=== PATIENT | female | born 1980 | race Caucasian/White ===

== ENCOUNTER 2018-08-30 02:58 | Emergency (ER) | payer BC ==
[~2018-08-30] VITALS: Ht 172.7 cm; Wt 169.2 kg
[~2018-08-30 02:58] MED LIST: CLINDAMYCIN HC150 MG PO; KEFLEX500 MG PO; LEVAQUIN500 MG PO; NO MEDS; NORCO 7.5-3251 EACH PO; TYLENOL EXTRA500 MG PO; TYLENOL WITH C1 EACH PO
[2018-08-30] MEDS ORDERED: ONDANSETRON HCL INJ 2 MG/ML VIAL IV STA (03:10)
[2018-08-30] MEDS ORDERED: KETOROLAC TROMETHAMINE 30 MG/ML VIAL IV STA (03:10)
[2018-08-30] MEDS ORDERED: SODIUM CHLORIDE 0.9% 1000ML 1,000 ML IV ONE (03:15)
[2018-08-30 03:16] LABS: BASOPHILS # (AUTO) 0.1 (0.0-0.1); BASOPHILS % 0.3 % (0.0-1.0); EOSINOPHILS # (AUTO) 0.3 (0.0-0.4); EOSINOPHILS % 1.7 % (0.0-6.0); HEMATOCRIT 45.1 % (34.2-44.1); HEMOGLOBIN 14.6 g/dL (12.0-16.0); LYMPHOCYTES # (AUTO) 2.6 (1.0-3.2); MEAN CORPUSCULAR HEMOGLOBIN 28.3 pg (28-32); MEAN CORPUSCULAR HGB CONC 32.4 g/dL (31-35); MEAN CORPUSCULAR VOLUME 87.4 fL (81-99); MONOCYTES # (AUTO) 0.5 (0.2-0.8); MONOCYTES % 3.2 % (4.4-11.3); NEUTROPHILS # (AUTO) 13.6 (2.1-6.9); NEUTROPHILS % 79.4 % (38.7-80.0); PLATELET COUNT 326 x10e3/uL (140-360); RED BLOOD COUNT 5.16 x10e6/uL (3.6-5.1); RED CELL DISTRIBUTION WIDTH 14.1 % (11.7-14.4)
[2018-08-30] MEDS ORDERED: DIATRIZOATE MEGL/DIATRIZOA SOD 30 ML BTL PO ONE (03:16)
[2018-08-30 03:33] LABS: ALANINE AMINOTRANSFERASE 42 IU/L (0-55); ALBUMIN 3.8 g/dL (3.5-5.0); ALBUMIN/GLOBULIN RATIO 0.9 (0.8-2.0); ALKALINE PHOSPHATASE 100 IU/L (40-150); AMYLASE 62 U/L (25-125); ANION GAP 15.9 mmol/L (8-16); BLOOD UREA NITROGEN 14 mg/dL (7-26); BUN/CREATININE RATIO 15 (6-25); CALCIUM 9.5 mg/dL (8.4-10.2); CARBON DIOXIDE 22 mmol/L (22-29); CHLORIDE 104 mmol/L (98-107); CREATININE, SERUM 0.92 mg/dL (0.57-1.11); EST GLOMERULAR FILTRATION RATE > 60 ML/MIN (60-); GLUCOSE 144 mg/dL (74-118); LIPASE 29 U/L (8-78); POTASSIUM 3.9 mmol/L (3.5-5.1); SODIUM 138 mmol/L (136-145)
[2018-08-30 04:03] LABS: BACTERIA,URINE FEW /HPF; BILIRUBIN,URINE NEGATIVE (NEGATIVE); CLARITY,URINE CLEAR (CLEAR); COLOR,URINE YELLOW (YELLOW); EPITHELIAL CELLS,URINE MODERATE /LPF; KETONES,URINE NEGATIVE (NEGATIVE); LEUKOCYTE ESTERASE ,URINE NEGATIVE (NEGATIVE); MUCUS,URINE FEW (RARE); NITRITE,URINE NEGATIVE (NEGATIVE); PREGNANCY TEST, URINE NEGATIVE (NEGATIVE); PROTEIN,URINE DIPSTICK TRACE (NEGATIVE); RBC,URINE 0-5 /HPF (0-5); URINE UROBILINOGEN 0.2 mg/dL (0.2 - 1); WBC,URINE (MAN) 0-5 /HPF (0-5)
[2018-08-30] MEDS ORDERED: SODIUM CHLORIDE 0.9% 50ML 50 ML ONE (04:11)
[2018-08-30] MEDS ORDERED: IOPAMIDOL 370 MG/ML 200 ML INFUS..BTL INJ ONE (04:11)
--- NOTE | 2018-08-30 05:18 | Diagnostic Imaging Report ---
EXAM: CT Abdomen and Pelvis WITH contrast INDICATION: Abdominal pain COMPARISON: None. TECHNIQUE: Abdomen and pelvis were scanned utilizing a multidetector helical scanner from the lung base to the pubic symphysis after administration of IV contrast. Coronal and sagittal reformations were obtained. Routine protocol was performed. Scan was performed when during portal venous phase. IV CONTRAST: 100 mL of Isovue-370 ORAL CONTRAST: Water RADIATION DOSE: Total DLP: 1353.18 mGy*cm Estimated effective dose: (DLP x 0.015 x size factor) mSv COMPLICATIONS: None FINDINGS: LINES and TUBES: None. LOWER THORAX: Unremarkable HEPATOBILIARY: No focal hepatic lesions. No biliary ductal dilation. GALLBLADDER: There are stones in the gallbladder. SPLEEN: No splenomegaly. PANCREAS: No focal masses or ductal dilatation. ADRENALS: No adrenal nodules KIDNEYS/URETERS: Kidneys enhance symmetrically. No hydronephrosis. No cystic or solid mass lesions. No stones. GI TRACT: Segmental of small bowel wall thickening/edema best seen on series 301, image 62 through 34 with evidence of mesenteric fluid/edema Appendix is normal. PELVIC ORGANS/BLADDER: Unremarkable. LYMPH NODES: No lymphadenopathy. VESSELS: Unremarkable. PERITONEUM / RETROPERITONEUM: No free air or fluid. BONES: Unremarkable. SOFT TISSUES: Unremarkable. IMPRESSION: 1. Findings are suspicious for focal enteritis in the appropriate clinical setting. Signed by: Dr. Stanton Mitchell M.D. on 08/30/2018 5:14 AM
[2018-08-30 05:45] VITALS: BP 130/76
== END 2018-08-30 06:03 | disposition home or self-care (01) ==
LOC: ER 02:58
DX: R10.12 Left upper quadrant pain (principal); R11.2 Nausea with vomiting, unspecified; R19.7 Diarrhea, unspecified; K52.9 Noninfective gastroenteritis and colitis, unspecified; R73.9 Hyperglycemia, unspecified; F17.210 Nicotine dependence, cigarettes, uncomplicated
CPT/HCPCS: 36415; 74177; 80053; 81001; 81025; 82150; 83690; 85025; 99284; J1885; J2405; J7030; Q9967

== ENCOUNTER 2019-09-02 07:14 | Emergency (ER) | payer BC ==
[~2019-09-02] VITALS: Ht 172.7 cm; Wt 181.0 kg
--- OUTSIDE RECORDS SUMMARY | 2019-09-02 07:19 | XMS REPORT ---
Author Author [facility] Address Unknown Phone Unavailable Care Team Providers Care Palliative Care Specialist Name Role Phone Liu POWELL Unavailable Unavailable Problems This patient has no known problems. Allergies, Adverse Reactions, Alerts This patient has no known allergies or adverse reactions. Medications This patient has no known medications. Results Test Description Test Time Test Comments Text Results Atomic Results Result Comments CT ABDOMEN/PELVIS W 2018-08-30 05:12:00 [place] [address] Patient Name: SHERRIE ABDULLAHI MR #: [id number] : 1980 Age/Sex: 38/F Req #: [id number] [facility] Physician: Ordered by: CRISTINA POWELL MD Report #: [id number] Location: ER Room/Bed: Procedure: [id number] CT/CT ABDOMEN/PELVIS W Exam Date: 08/30/18 Exam Time: 0415 REPORT STATUS: Signed EXAM: CT Abdomen and Pelvis WITH contrast INDICATION: Abdominal pain COMPARISON: None. TECHNIQUE: Abdomen and pelvis were scanned utilizing a multidetector helical scanner from the lung base to the pubic symphysis after administration of IV contrast. Coronal and sagittal reformations were obtained. Routine protocol was performed. Scan was performed when during portal venous phase. IV CONTRAST: 100 mL of Isovue-370 ORAL CONTRAST: Water RADIATION DOSE: Total DLP: 1353.18 mGy*cm Estimated effective dose: (DLP x 0.015 x size factor) mSv COMPLICATIONS: None FINDINGS: LINES and TUBES: None. LOWER THORAX: Unremarkable HEPATOBILIARY: No focal hepatic lesions. No biliary ductal dilation. GALLBLADDER: There are stones in the gallbladder. SPLEEN: No splenomegaly. PANCREAS: No focal masses or ductal dilatation. ADRENALS: No adrenal nodules KIDNEYS/URETERS: Kidneys enhance symmetrically. No hydronephrosis. No cystic or solid mass lesions. No stones. GI TRACT: Segmental of small bowel wall thickening/edema best seen on series 301, image 62 through 34 with evidence of mesenteric fluid/edema Appendix is normal. PELVIC ORGANS/BLADDER: Unremarkable. LYMPH NODES: No lymphadenopathy. VESSELS: Unremarkable. PERITONEUM / RETROPERITONEUM: No free air or fluid. BONES: Unremarkable. SOFT TISSUES: Unremarkable. IMPRESSION: 1. Findings are suspicious for focal enteritis in the appropriate clinical setting. Signed by: Dr. Stanton Mitchell M.D. on 08/30/2018 5:14 AM Dictated By: STANTON HELMS MD 3 Transcribed By: BOGDAN on 08/30/18513 COPY TO: CRISTINA POWELL MD
== END 2019-09-02 08:13 | disposition home or self-care (01) ==
LOC: FSED 07:14
DX: L02.211 Cutaneous abscess of abdominal wall (principal); R73.9 Hyperglycemia, unspecified; F17.210 Nicotine dependence, cigarettes, uncomplicated
CPT/HCPCS: 80053; 85025; 99283

== ENCOUNTER 2019-09-02 20:39 | Inpatient (IN) | payer BC ==
[~2019-09-02] VITALS: Ht 170.2 cm; Wt 179.7 kg
[2019-09-02] MEDS ORDERED: IBUPROFEN 600 MG TAB PO STA (20:59)
[2019-09-02] MEDS ORDERED: ACETAMINOPHEN 325 MG TAB PO NR (21:00)
[2019-09-02] MEDS ORDERED: SODIUM CHLORIDE FLUSH 10 ML SYR INJ PRN (21:00)
[2019-09-02] MEDS ORDERED: ONDANSETRON HCL INJ 2MG/ML 2ML 2 MG/ML VIAL IV ONE (21:00)
[2019-09-02] MEDS ORDERED: SODIUM CHLORIDE 0.9% 50ML 50 ML ONE (21:08)
[2019-09-02] MEDS ORDERED: IOPAMIDOL 370 MG/ML 200 ML INFUS..BTL INJ ONE (21:09)
[2019-09-02] MEDS: SODIUM CHLORIDE 0.9% 1000ML 1,000 ML IV SCH ×3 (21:10→23:15)
[2019-09-02] MEDS ORDERED: ONDANSETRON HCL INJ 2MG/ML 2ML 2 MG/ML VIAL ONE (21:13)
[2019-09-02] MEDS ORDERED: SODIUM CHLORIDE 0.9% 1000ML 1,000 ML ONE (21:14)
[2019-09-02] MEDS ORDERED: IBUPROFEN 200 MG TAB ONE (21:14)
[2019-09-02] MEDS ORDERED: ACETAMINOPHEN 325 MG TAB ONE (21:14)
[2019-09-02] MEDS ORDERED: VANCOMYCIN 1GM/NS 250 ML 250 ML IV STA (21:16)
[2019-09-02] MEDS ORDERED: CEFTRIAXONE SOD 1 GM/NS 50 ML 50 ML IV STA (21:16)
[2019-09-02] MEDS ORDERED: CEFTRIAXONE SOD 1 GM VIAL ONE (22:04)
[2019-09-02] MEDS ORDERED: VANCOMYCIN 1GM/NS 250 ML 250 ML ONE (22:04)
--- NOTE | 2019-09-02 23:16 | Diagnostic Imaging Report ---
EXAMINATION: Chest PA and lateral views INDICATION: Fever. Pain. ^[id number] ^[id number] COMPARISON: None FINDINGS: TUBES and LINES: None. LUNGS: Lungs are well inflated. Lungs are clear. There is no evidence of pneumonia or pulmonary edema. PLEURA: No pleural effusion or pneumothorax. HEART AND MEDIASTINUM: Cardiac size is mildly enlarged. BONES AND SOFT TISSUES: No acute osseous lesion. Soft tissues are unremarkable. UPPER ABDOMEN: No free air under the diaphragm. IMPRESSION: No acute thoracic abnormality. Signed by: Dr. Anila Richardson M.D. on 09/02/2019 11:12 PM
--- NOTE | 2019-09-02 23:27 | Diagnostic Imaging Report ---
EXAM: CT Abdomen and Pelvis WITH contrast INDICATION: Abdominal pain. Fever. COMPARISON: None. TECHNIQUE: Abdomen and pelvis were scanned utilizing a multidetector helical scanner from the lung base to the pubic symphysis after administration of IV contrast. Coronal and sagittal reformations were obtained. Routine protocol was performed. Scan was performed when during portal venous phase. IV CONTRAST: 100 cc Isovue 370 ORAL CONTRAST: Water RADIATION DOSE: Total DLP: 871.91 mGy*cm Estimated effective dose: (DLP x 0.015 x size factor) mSv COMPLICATIONS: None FINDINGS: Image degradation by beam hardening artifact. LINES and TUBES: None. LOWER THORAX: There is mild bibasilar atelectasis. HEPATOBILIARY: The liver is diffuse hypodense compared to the spleen, consistent with diffuse hepatic diffuse hepatic steatosis. No focal hepatic lesions. No biliary ductal dilation. GALLBLADDER:: Cystectomy clips. SPLEEN: No splenomegaly. PANCREAS: No focal masses or ductal dilatation. ADRENALS: No adrenal nodules. KIDNEYS/URETERS: Kidneys enhance symmetrically. No hydronephrosis. No cystic or solid mass lesions. No stones. GI TRACT: No abnormal distention, wall thickening, or evidence of bowel obstruction. Appendix is normal. PELVIC ORGANS/BLADDER: Tubal ligation clips. LYMPH NODES: No lymphadenopathy. VESSELS: Unremarkable. PERITONEUM / RETROPERITONEUM: No free air or fluid. BONES: There are degenerative changes in the lumbar spine. SOFT TISSUES: Mild thickening of the periumbilical subcutaneous soft tissues as seen on axial image 72 series 2 and sagittal image 83 without fluid collection. IMPRESSION: 1. Mild thickening of the para umbilical subcutaneous soft tissues without fluid collection represents focal inflammatory change/cellulitis. No intra-abdominal pelvic abnormality. Signed by: Dr. Anila Richardson M.D. on 09/02/2019 11:24 PM
--- NOTE | 2019-09-02 23:50 | NUR ---
[facility] NOTIFIED OF TRANSFER. ETA GIVEN WAS APPROX 1.5 HRS.
[2019-09-03] VITALS (11 sets, daily range): BP systolic 109–162; BP diastolic 57–97
[2019-09-03] MEDS ORDERED: ACETAMINOPHEN 1000 MG/100 ML IV PRN
--- NOTE | 2019-09-03 01:30 | NUR ---
UPDATE [facility] STATED EMS 15 MINUTES OUT
--- NOTE | 2019-09-03 02:21 | NUR ---
Patient admitted to room 207 via stretcher. Alert and orient to name, hospital, time, and diagnosis: abdominal wall abscess. Abdomen redness, nontender. Denies pain at this time. Skin warm and dry. Bilateral feet healing abrasions. Lungs CTA. Denies dysuria. Last BM 09/01. Ambulatory with steady gait. Oriented to room. Call noble within reach. Will continue to monitor.
[2019-09-03] MEDS: D5.45%NS/KCL 20MEQ 1,000 ML IV SCH ×3 (03:30→16:33)
[2019-09-03] MEDS ORDERED: CEFTRIAXONE SOD 1 GM/NS 50 ML 50 ML IV SCH ×3 (03:45→10:00)
--- NOTE | 2019-09-03 06:50 | NUR ---
Report given to morning nurse. Patient lying in bed. Denies pain at this time.
[2019-09-03 07:01] LABS: BASOPHILS % 0.2 % (0.0-1.0); EOSINOPHILS # (AUTO) 0.1 (0.0-0.4); EOSINOPHILS % 0.6 % (0.0-6.0); HEMATOCRIT 35.4 % (34.2-44.1); HEMOGLOBIN 11.7 g/dL (12.0-16.0); LYMPHOCYTES # (AUTO) 0.9 (1.0-3.2); LYMPHOCYTES % 8.9 % (18.0-39.1); MEAN CORPUSCULAR HEMOGLOBIN 28.5 pg (28-32); MEAN CORPUSCULAR HGB CONC 33.1 g/dL (31-35); MEAN CORPUSCULAR VOLUME 86.3 fL (81-99); MONOCYTES # (AUTO) 0.5 (0.2-0.8); MONOCYTES % 4.7 % (4.4-11.3); NEUTROPHILS # (AUTO) 8.9 (2.1-6.9); NEUTROPHILS % 85.1 % (38.7-80.0); PLATELET COUNT 180 x10e3/uL (140-360); RED CELL DISTRIBUTION WIDTH 15.1 % (11.7-14.4)
[2019-09-03 07:09] LABS: INR 0.97; PROTHROMBIN TIME 13.4 seconds (11.9-14.5)
[2019-09-03 07:10] LABS: PARTIAL THROMBOPLASTIN TIME 31.5 seconds (23.8-35.5)
[2019-09-03 07:13] LABS: ANION GAP 11.5 mmol/L (8-16); BLOOD UREA NITROGEN 13 mg/dL (7-26); BUN/CREATININE RATIO 16 (6-25); CALCIUM 8.4 mg/dL (8.4-10.2); CARBON DIOXIDE 25 mmol/L (22-29); CHLORIDE 101 mmol/L (98-107); CREATININE, SERUM 0.79 mg/dL (0.57-1.11); EST GLOMERULAR FILTRATION RATE > 60 ML/MIN (60-); GLUCOSE 142 mg/dL (74-118); POTASSIUM 3.5 mmol/L (3.5-5.1); SODIUM 134 mmol/L (136-145)
[2019-09-03] MEDS ORDERED: CEFEPIME 2 GM/NS 0.9% 100 ML 100 ML IV SCH (09:00)
[2019-09-03] MEDS ORDERED: IBUPROFEN 400 MG TAB PO ONE (11:00)
[2019-09-03] MEDS: VANCOMYCIN 1GM/NS 250 ML 250 ML IV SCH ×3 (12:24→23:38)
[2019-09-03] MEDS: ACETAMINOPHEN 325 MG TAB PO PRN ×2 (13:30→21:00)
[2019-09-03] MEDS: CEFEPIME 2 GM/NS 0.9% 100 ML 100 ML IV SCH (16:33)
--- NOTE | 2019-09-03 19:18 | NUR ---
Received bedside report from day nurse. Patient awake and sitting up in bed, no s/s of distress or c/o pain at this time. All safety measures in place. Family at bedside. Will continue to monitor.
--- NOTE | 2019-09-03 23:56 | NUR ---
patients temp 101.2 oral. Ice packs placed under both armpits and groin area. Uncovered patient as she had 3 blankets. Addendum: 09/03/19 at 2357 by Riri Mckay RN Next tylenol due at 0300.
[2019-09-04] VITALS (9 sets, daily range): BP systolic 121–147; BP diastolic 70–90
[2019-09-04] MEDS: CEFEPIME 2 GM/NS 0.9% 100 ML 100 ML IV SCH ×2 (01:17→09:00)
[2019-09-04] MEDS: ACETAMINOPHEN 325 MG TAB PO PRN (03:36)
[2019-09-04] MEDS: D5.45%NS/KCL 20MEQ 1,000 ML IV SCH ×3 (03:36→16:00)
--- NOTE | 2019-09-04 04:09 | NUR ---
Patient has hives on upper extremities. Will place call to Dr. Paulino in am. Patient is not taking any new antibiotics. Patient continues to have a temperature of 101, tylenol given, and ice packs placed.
--- NOTE | 2019-09-04 05:22 | Consultation ---
DATE OF CONSULTATION: 09/03/2019 HISTORY OF PRESENT ILLNESS: is here because she is having pain, redness, and swelling in her abdomen, she had this for a few days. She worsened in Urgent [facility] Center. The patient started to have drainage from her wound. She went to see the doctor because she was in Urgent Care, who gave her Bactrim. She took one Bactrim. The patient had fever and chills, felt really bad, except more of pus coming, so she came back and they sent her here to be admitted. The patient was lying in bed comfortably. PAST MEDICAL HISTORY: Significant for morbidly obese patient. PAST SURGICAL HISTORY: She had history of . ALLERGIES: NKA. SOCIAL HISTORY: There is no smoking, drug abuse, or alcohol abuse. FAMILY HISTORY: Otherwise, noncontributory. REVIEW OF SYSTEMS: HEENT: Negative. PULMONARY: Negative. CARDIAC: Negative. MEDICATIONS: He is currently on vancomycin and cefepime. PHYSICAL EXAMINATION: GENERAL: She is currently alert, oriented. VITAL SIGNS: T-max 100.8, blood pressure of 117/58, and heart rate of 105. HEENT: She is not icteric. NECK: Supple. CHEST: Clear bilateral. HEART: S1, S2. No murmur. ABDOMEN: Soft and obese. She has a small area on the skin, which is about 4 x 4 cm. CAT scan was done, showed a mild thickening of periumbilical area without fluid collection, there is no intraabdominal or pelvic inflammatory impression, abdominal cellulitis and abscess seem to be spontaneously drained, low fever, etiology unclear. I would recommend to recheck CBC with diff. Blood cultures pending. Keep on the choice of antibiotic, however, we will adjust because of her weight and vancomycin 2 g q.12h, cefepime 2 g q.8. We will follow. IMPRESSION: 1. Abdominal cellulitis and abscess draining. 2. Low fever. We will observe . MD SOLOMON Puckett/CARMEN /[id number]
--- NOTE | 2019-09-04 06:14 | NUR ---
Paged Dr. Paulino regarding patient's elevated temperature, heart rate, and hives. Also need to clarify vancomycin dosage. Current order is for 1 g. However, label comments specify 1.75 g, whereas Dr. Paulino's notes specify 2 g. Awaiting return call. Will continue to monitor patient.
[2019-09-04 06:24] LABS: BASOPHILS % 0.2 % (0.0-1.0); EOSINOPHILS # (AUTO) 0.2 (0.0-0.4); EOSINOPHILS % 1.8 % (0.0-6.0); HEMATOCRIT 34.6 % (34.2-44.1); HEMOGLOBIN 10.9 g/dL (12.0-16.0); LYMPHOCYTES # (AUTO) 1.2 (1.0-3.2); LYMPHOCYTES % 11.6 % (18.0-39.1); MEAN CORPUSCULAR HEMOGLOBIN 27.7 pg (28-32); MEAN CORPUSCULAR HGB CONC 31.5 g/dL (31-35); MONOCYTES # (AUTO) 0.5 (0.2-0.8); MONOCYTES % 4.3 % (4.4-11.3); NEUTROPHILS # (AUTO) 8.5 (2.1-6.9); NEUTROPHILS % 81.5 % (38.7-80.0); PLATELET COUNT 167 x10e3/uL (140-360); RED BLOOD COUNT 3.93 x10e6/uL (3.6-5.1)
[2019-09-04 06:42] LABS: ALANINE AMINOTRANSFERASE 24 IU/L (0-55); ALBUMIN 2.5 g/dL (3.5-5.0); ALBUMIN/GLOBULIN RATIO 0.7 (0.8-2.0); ALKALINE PHOSPHATASE 83 IU/L (40-150); ANION GAP 9.7 mmol/L (8-16); BLOOD UREA NITROGEN 8 mg/dL (7-26); BUN/CREATININE RATIO 11 (6-25); CALCIUM 8.8 mg/dL (8.4-10.2); CARBON DIOXIDE 24 mmol/L (22-29); CHLORIDE 103 mmol/L (98-107); CHOL/HDL RATIO 3.8 (3.0-3.6); CHOLESTEROL 156 MD/DL (0-199); CREATININE, SERUM 0.75 mg/dL (0.57-1.11); EST GLOMERULAR FILTRATION RATE > 60 ML/MIN (60-); GLUCOSE 156 mg/dL (74-118); HDL CHOLESTEROL 41 MG/DL (40-60); LDL CHOLESTEROL 96 MG/DL (60-130); POTASSIUM 3.7 mmol/L (3.5-5.1); SODIUM 133 mmol/L (136-145); TRIGLYCERIDES 96 MG/DL (0-149)
--- NOTE | 2019-09-04 07:10 | NUR ---
RCD PT AT BED PT IS ALERT AND ORIENTED PT RESTING ON BED PT C/O ITCHING AND REDNESS ON THE HANDS IV PATENT BED LOW AND LOCKED CALL LIGHT IN REACH
[2019-09-04] MEDS ORDERED: DIPHENHYDRAMINE HCL 25 MG CAP PO ONE (07:30)
--- NOTE | 2019-09-04 08:30 | NUR ---
PAGED AND TALKED DR PAGAN REGARDING THE ALLERGIC REACTION REDNESS AND ITCHING HE SAID HE IS COMING TO SEE THE PT
[2019-09-04] MEDS ORDERED: DIPHENHYDRAMINE HCL 25 MG CAP PO PRN (09:00)
[2019-09-04] MEDS ORDERED: METHYLPREDNISOLONE SOD SUCC 40 MG/ML VIAL 1ML IV ONE ×2 (09:30)
[2019-09-04] MEDS ORDERED: VANCOMYCIN HCL 1.5 GM in SODIUM CHLORIDE 0.9% 250ML 300 ML IV SCH (12:00)
--- NOTE | 2019-09-04 15:31 | History and Physical ---
CHIEF COMPLAINT: Left lower quadrant abdominal abscess with cellulitis and fevers. HISTORY OF PRESENT ILLNESS: This is a 39-year-old female with no significant past medical history, who was admitted from the emergency room with a fever, self-draining abscess in the left lower quadrant. Has some headache. No chest pain. No shortness of breath. No cough. No burning urination. No backache. No leg pain. No leg swelling. No diarrhea. No constipation. No seizures. No focal weakness. ALLERGIES: ALLERGY TO CODEINE. PAST MEDICAL HISTORY: Morbid obesity. PAST SURGICAL HISTORY: History of ventral hernia surgery, , and cholecystectomy. SOCIAL HISTORY: The patient is , lives with the family. Smokes cigarettes half to one pack per day. Alcohol socially. No illicit drug use. MEDICATION: None. FAMILY HISTORY: None. REVIEW OF SYSTEMS: GENERAL: Denies fatigue or weakness. HEENT: No diplopia. No blurry vision. CARDIOPULMONARY: No chest pain. No shortness of breath. No cough. ALIMENTARY SYSTEM: Has no nausea, no vomiting. Has a lower quadrant abdominal pain and abscess. GENITOURINARY SYSTEM: No dysuria. No hematuria. MUSCULOSKELETAL: No joint pain. CENTRAL NERVOUS SYSTEM: No focal weakness. PHYSICAL EXAMINATION: GENERAL: A 39-year-old female, who is alert and oriented x3, in no gross distress. VITAL SIGNS: Temperature 100.5, pulse is 90, respiratory rate is 18, blood pressure 130/80. HEENT: Head is atraumatic and normocephalic. Pupils are bilaterally equal and reactive to light. Extraocular muscles are intact. NECK: Supple. No JVD. No carotid bruit. LUNGS: Clear to auscultation and percussion bilaterally. No added sounds. HEART: S1, S2. Regular rate and rhythm. No S3, S4, or murmur. ABDOMEN: Soft, obese. No guarding. No rigidity. Has left lower quadrant tenderness surrounding redness of self-draining abscess. EXTREMITIES: No edema. Peripheral pluses +1. SPECIAL EDUCATION AIDE: Grossly nonfocal. LABORATORY DATA: White count normal. Chemistry normal. Sugar is mildly elevated. ASSESSMENT: 1. Left lower quadrant abdominal abscess, self-draining with surrounding cellulitis. 2. Morbid obesity. PLAN: Admit patient to medical floor. ID consult, Dr. Paulino, surgical consult with Dr. Vladimir Cummings. Vancomycin 1 g IV q.12. Cefepime 2 g IV q.24 hours. Lab in the morning. Case discussed with the patient. All condition and prognosis discussed with consultants. MD KATARINA Feliz/CARMEN /[id number]
--- NOTE | 2019-09-04 15:49 | NUR ---
WOUNDCARE CONSULT FOR 39 YO FEMALE PATIENT ADMITTED FOR ABSCESS ABDOMINAL WALL PATIENT IS INDEPENDENT AND ON VISCO MATTRESS LABS: WBC-10.39,HGB- 10.9,GLUCOSE- 156, HEM A1C -6.2 NEGATIVE BLOOD CULTURE & PENDING RESULTS OF SWAB CULTURE OF ABDOMEN PATIENT ON CEFEPIME AND VANCOMYCIN SKIN ASSESSMENT : FULL WOUND DESCRIPTIONS LISTED ON WOUND FLOW SHEET PT HAS .5CMX .5CM X .2 CM DRAINING ABSCESS ON ABDOMEN SWAB COLLECTED FOR CULTURE DRESSING PLACED ON AREA PATIENT ALSO HAVE 3 AREAS ON RIGHT FOOT THAT HAS A RAISED RASH APPEARANCE RECOMMENDATIONS: NURSING TO COVER ABDOMEN DRAINING ABSCESS DAILY WITH MAXSORB AG COVER WITH ALLEVYN FOAM DRESSING NURSING TO APPLY DAILY VENELEX OINTMENT TO DRY RAISED AREAS TO RIGHT FOOT COVER WITH ALLEVYN FOAM TO PREVENT PAIN FROM FRICTION RUB NURSING TO RECONSULT WOUND CARE NEEDED FOR FURTHER CONCERNS FOR SKIN PROTECTION OR WOUND CARE Addendum: 09/04/19 at 1607 by Miguel Hernández RN Amended: Links added.
[2019-09-04] MEDS ORDERED: ENOXAPARIN SOD INJ 40 MG/0.4 ML SYR SC SCH (17:00)
--- NOTE | 2019-09-04 18:45 | NUR ---
PT RESTING ON BED BED SIDE REPORT GIVEN TO ONCOMING NURSE
[2019-09-05 04:10] VITALS: BP 113/64
[2019-09-05 05:58] LABS: BASOPHILS % 0.2 % (0.0-1.0); EOSINOPHILS # (AUTO) 0.1 (0.0-0.4); EOSINOPHILS % 0.4 % (0.0-6.0); HEMATOCRIT 40.4 % (34.2-44.1); HEMOGLOBIN 12.4 g/dL (12.0-16.0); LYMPHOCYTES # (AUTO) 1.3 (1.0-3.2); LYMPHOCYTES % 10.7 % (18.0-39.1); MEAN CORPUSCULAR HEMOGLOBIN 27.9 pg (28-32); MEAN CORPUSCULAR HGB CONC 30.7 g/dL (31-35); MONOCYTES # (AUTO) 0.5 (0.2-0.8); MONOCYTES % 4.2 % (4.4-11.3); NEUTROPHILS # (AUTO) 10.3 (2.1-6.9); NEUTROPHILS % 83.4 % (38.7-80.0); PLATELET COUNT 163 x10e3/uL (140-360); RED BLOOD COUNT 4.44 x10e6/uL (3.6-5.1); RED CELL DISTRIBUTION WIDTH 14.7 % (11.7-14.4)
[2019-09-05 06:12] LABS: ANION GAP 16.2 mmol/L (8-16); BLOOD UREA NITROGEN 10 mg/dL (7-26); BUN/CREATININE RATIO 13 (6-25); CALCIUM 9.2 mg/dL (8.4-10.2); CARBON DIOXIDE 18 mmol/L (22-29); CHLORIDE 106 mmol/L (98-107); EST GLOMERULAR FILTRATION RATE > 60 ML/MIN (60-); GLUCOSE 272 mg/dL (74-118); POTASSIUM 4.2 mmol/L (3.5-5.1); SODIUM 136 mmol/L (136-145)
--- NOTE | 2019-09-05 07:05 | NUR ---
RCD PT AT BED PT IS ALERT AND ORIENTED RESTING ON BED NO SIGNS OF ANY DISTRESS NOTED IV PATENT BED LOW AND LOCKED CALL LIGHT IN REACH
[2019-09-05] MEDS ORDERED: PANTOPRAZOLE SOD 40 MG TABEC PO SCH (07:30)
[2019-09-05 07:33] LABS: PLATELET ESTIMATE MODERATELY DECREASED
[2019-09-05 07:34] LABS: PLATELET MORPHOLOGY COMMENT FEW LARGE
[2019-09-05 07:49] VITALS: BP 128/66
[2019-09-05 08:00] VITALS: BP 128/66
--- NOTE | 2019-09-05 08:43 | NUR ---
DC TELEY BY ORDER
[2019-09-05] MEDS ORDERED: BALSAM PERU/CASTOR OIL 60 GM OINT...G. TP SCH (09:00)
[2019-09-05 11:55] VITALS: BP 159/109
--- NOTE | 2019-09-05 12:15 | NUR ---
DR PAGAN CAME TO SEE THE PT AND HE IS OK TO DISCHARGE THE PT NO HOME ANTIBIOTICS
== END 2019-09-05 13:00 | disposition home or self-care (01) | DRG 603 ==
LOC: FSED 20:39 → ERHOLD 23:53 → MED/SURG2 09-03 02:21
PROVIDERS: ADMIT Internal Medicine; ATTEND Internal Medicine
DX: L02.211 Cutaneous abscess of abdominal wall (principal); Z68.44 Body mass index [BMI] 60.0-69.9, adult; E66.01 Morbid (severe) obesity due to excess calories; R21 Rash and other nonspecific skin eruption; L23.9 Allergic contact dermatitis, unspecified cause
CPT/HCPCS: 36415; 71046; 74177; 80048; 80053; 80061; 80076; 81003; 81025; 83036; 83518; 83605; 85025; 85610; 85730; 87040; 87071; 87205; 87400; 93005; 96374; 99284; J0696; J1650; J2405; J2920; J3370; J7030; J7050; Q9967

== ENCOUNTER 2020-01-03 19:21 | Emergency (ER) | payer BC ==
[~2020-01-03] VITALS: Ht 170.2 cm; Wt 171.0 kg
[2020-01-03] MEDS ORDERED: CEFAZOLIN SOD 1 GM VIAL ONE (21:07)
[2020-01-03] MEDS ORDERED: SODIUM CHLORIDE 0.9% 100 ML ONE (21:07)
[2020-01-03] MEDS ORDERED: POTASSIUM CHLORIDE 10MEQ EA PO ONE (21:45)
[2020-01-03] MEDS ORDERED: CEFAZOLIN SOD 1 GM/NS 50ML 50 ML IV SCH (22:00)
[2020-01-03] MEDS ORDERED: POTASSIUM CHLORIDE 20 MEQ TAB CR PO ONE (22:24)
[2020-01-03 22:33] VITALS: BP 143/85
== END 2020-01-03 22:45 | disposition short-term general hospital (02) ==
LOC: FSED 19:21
DX: L03.115 Cellulitis of right lower limb (principal); A46 Erysipelas; R73.9 Hyperglycemia, unspecified; E87.6 Hypokalemia; F17.200 Nicotine dependence, unspecified, uncomplicated; E66.01 Morbid (severe) obesity due to excess calories; Z68.43 Body mass index [BMI] 50.0-59.9, adult; R73.03 Prediabetes
CPT/HCPCS: 80053; 85025; 99284; J0690; J7050

== ENCOUNTER 2020-04-28 18:03 | Emergency (ER) | payer BC ==
[~2020-04-28] VITALS: Ht 170.2 cm; Wt 169.2 kg
--- OUTSIDE RECORDS SUMMARY | 2020-04-28 18:07 | XMS REPORT | Clinical Summary ---
Author Author [facility] [employer] Address Unknown Phone Unavailable Care Team Providers Care Veneer Stock Layer Name Role Phone Provider, Unknown PCP Unavailable Allergies Comments Active Allergy Reactions Severity Noted Date Rifampin Swelling 10/27/2019 Sulfa (Sulfonamide Unknown 10/27/2019 Antibiotics) Reaction Sulfa (Sulfonamide Hives 01/03/2020 Antibiotics) Redness of skin (Facial, RUE, Back) Vancomycin Hives, Medium 10/28/2019 Itching, Other (See Comments) Vancomycin Hives 01/03/2020 Medications End Date Status Medication Sig Dispensed Refills Start Date Active hydroCHLOROthiazide Take 25 mg by 0 (HYDRODIURIL) 25 MG mouth daily. tablet Active metFORMIN (GLUCOPHAGE) Take 500 mg 0 500 mg tablet by mouth 2 (two) times a day with meals. Active gabapentin (NEURONTIN) Take 100 mg 0 100 mg capsule by mouth 2 (two) times a day. Active ergocalciferol (VITAMIN Take 50,000 0 D2) 50,000 unit capsule Units by mouth once a week. Active oxyCODone-acetaminophen Take 1 tablet 0 (PERCOCET) 10-325 mg per by mouth tabletIndications: acute every 8 pain (eight) hours as needed for moderate pain .acute pain. 12/07/2019 ergocalciferol (VITAMIN Take 1 4 capsule 2 D2) 50,000 unit capsule capsule 9 (50,000 Units total) by mouth once a week for 30 days. 12/06/2019 metFORMIN (GLUCOPHAGE) Take 1 tablet 60 tablet 0 1 500 mg tablet (500 mg 9 total) by mouth 2 (two) times a day with meals for 30 days. 11/13/2019 oxyCODone-acetaminophen Take 1 tablet 21 tablet 0 (PERCOCET) 10-325 mg per by mouth 9 tabletIndications: acute every 8 pain (eight) hours as needed for moderate pain for up to 7 days .Acute Pain. Max Daily Amount: 3 tablets 11/20/2019 linezolid (ZYVOX) 600 mg Take 1 tablet 28 tablet 0 tablet (600 mg 9 total) by mouth 2 (two) times a day for 14 days. 12/06/2019 furosemide (LASIX) 20 mg Take 1 tablet 30 tablet 0 tablet (20 mg total) 9 by mouth daily as needed (edema) for up to 30 days. 11/20/2019 linezolid (ZYVOX) 600 mg Take 1 tablet 28 tablet 0 tablet (600 mg 9 total) by mouth 2 (two) times a day for 14 days. 01/06/2020 Discontinued (Stop Taking at Discharge) linezolid (ZYVOX) 600 mg Take 600 mg 0 tablet by mouth 2 (two) times a day. 01/06/2020 Discontinued (Stop Taking at Discharge) levoFLOXacin (LEVAQUIN) Take 750 mg 0 750 MG tablet by mouth daily. 01/13/2020 acetaminophen-codeine Take 1 tablet 21 tablet 0 (TYLENOL WITH CODEINE #3) by mouth 0 300-30 mg per every 8 tabletIndications: acute (eight) hours pain as needed for moderate pain for up to 7 days .acute pain. 01/27/2020 meropenem 1,000 mg in Infuse 1,000 0 01/06/20 2 sodium chloride 0.9 % MBP mg into a 0 100 mL IVPB venous catheter every 6 (six) hours for 21 days. Active Problems Problem Noted Date Morbid obesity 01/04/2020 Type 2 diabetes mellitus 01/04/2020 Cellulitis of right lower extremity 01/03/2020 Type II diabetes mellitus with manifestations 2018 Cellulitis of right lower extremity 10/27/2019 Hypokalemia 10/27/2019 Hyponatremia 10/27/2019 Morbid obesity 10/27/2019 Encounters Care Team Description Date Type Specialty Trina Stewart MD Acute embolism and thrombosis of deep ve ins of left upper extremity (HCC) (Primary Dx) 01/13/2020 Transcribe Access Orders Brittany King MD Cellulitis of right lower extremity (Martina lucy Dx); Morbid obesity (HCC); Type 2 diabetes mellitus with hyperglycemia, without long-term current use of insulin (HCC) 01/03/2020 [facility] dicine - Encounter 01/06/2020 Danisha Rock RN 11/06/2019 Patient Quality Outreach Tim Campos MD Yerramadha, Muralidhar Reddy, MD Cellulitis of right lower extremity (Martina lucy Dx); Hypokalemia; Lymphedema; Hyponatremia; Morbid obesity (HCC); Type II diabetes mellitus with manifestations (HCC) 10/27/2019 [facility] dicine - Encounter 11/06/2019 after 04/28/2019 Social History Date Tobacco Use Types Packs/Day Years Used Current Every Day Smoker Cigarettes Smokeless Tobacco: Never Used Comments: 1 pack per week Drinks/Week oz/Week Comments Alcohol Use rarely Yes Sex Assigned at Date Recorded Female 03/03/2020 4:03 AM CDT Industry Job Start Date Occupation Not on file Not on file Not on file Travel End Travel History Travel Start No recent travel history available. Last Filed Vital Signs Reading Time Taken Comments Vital Sign 135/79 01/06/2020 10:49 AM KENNEL TECHNICIAN Blood Pressure 87 01/06/2020 10:49 AM KENNEL TECHNICIAN Pulse 36.7 C (98.1 F) 01/06/2020 10:49 AM KENNEL TECHNICIAN Temperature 18 01/06/2020 10:49 AM KENNEL TECHNICIAN Respiratory Rate 98% 01/06/2020 10:49 AM KENNEL TECHNICIAN Oxygen Saturation - - Inhaled Oxygen Concentration 172 kg (380 lb) 01/04/2020 12:24 AM KENNEL TECHNICIAN Weight 170.2 cm (5' 7") 01/04/2020 12:24 AM KENNEL TECHNICIAN Height 59.52 01/04/2020 12:24 AM KENNEL TECHNICIAN Body Mass Index Plan of Treatment Health Maintenance Due Date Last Done Comments DIABETIC RETINAL EYE EXAM 1978 DIABETIC FOOT EXAM 1988 URINE MICROALBUMIN 1988 CERVICAL CANCER SCREENING 1999 INFLUENZA VACCINE 06/26/2020 Implants Device Identifier Shelf Expiration Date Model / Serial / L ot Implanted Type Area Manufactur er Mesh Implant Mesh Stomach Implant Mesh Implant Mesh Stomach Implant Screw Screw Arm, Upper Procedures Comments Procedure Name Priority Date/Time Associated Diag nosis POC GLUCOSE Routine 01/06/2020 11:59 AM KENNEL TECHNICIAN ESTIMATED GFR Routine 01/06/2020 8:04 AM KENNEL TECHNICIAN BASIC METABOLIC PANEL Routine 01/06/2020 8:04 AM KENNEL TECHNICIAN POC GLUCOSE Routine 01/06/2020 5:33 AM KENNEL TECHNICIAN POC GLUCOSE Routine 01/05/2020 8:50 PM KENNEL TECHNICIAN POC GLUCOSE Routine 01/05/2020 4:18 PM KENNEL TECHNICIAN POC GLUCOSE Routine 01/05/2020 11:26 AM KENNEL TECHNICIAN VENIPUNC NEED PHYS Routine 01/05/2020 SKILL,DX OR RX 10:47 AM KENNEL TECHNICIAN POC GLUCOSE Routine 01/05/2020 5:39 AM KENNEL TECHNICIAN ESTIMATED GFR Routine 01/05/2020 5:10 AM KENNEL TECHNICIAN COMPREHENSIVE METABOLIC Routine 01/05/2020 PANEL 5:10 AM KENNEL TECHNICIAN HC COMPLETE BLD COUNT Routine 01/05/2020 W/AUTO DIFF 5:10 AM KENNEL TECHNICIAN POC GLUCOSE Routine 01/04/2020 8:10 PM KENNEL TECHNICIAN POC GLUCOSE Routine 01/04/2020 3:17 PM KENNEL TECHNICIAN POC GLUCOSE Routine 01/04/2020 11:17 AM KENNEL TECHNICIAN POC GLUCOSE Routine 01/04/2020 5:20 AM KENNEL TECHNICIAN ESTIMATED GFR Routine 01/04/2020 5:15 AM KENNEL TECHNICIAN COMPREHENSIVE METABOLIC Routine 01/04/2020 PANEL 5:15 AM KENNEL TECHNICIAN HC COMPLETE BLD COUNT Routine 01/04/2020 W/AUTO DIFF 5:15 AM KENNEL TECHNICIAN ESTIMATED GFR Routine 11/06/2019 5:06 AM KENNEL TECHNICIAN HC COMPLETE BLD COUNT Routine 11/06/2019 W/AUTO DIFF 5:06 AM KENNEL TECHNICIAN BASIC METABOLIC PANEL Routine 11/06/2019 5:06 AM KENNEL TECHNICIAN ESTIMATED GFR Routine 11/05/2019 5:00 AM KENNEL TECHNICIAN HC COMPLETE BLD COUNT Routine 11/05/2019 W/AUTO DIFF 5:00 AM KENNEL TECHNICIAN BASIC METABOLIC PANEL Routine 11/05/2019 5:00 AM KENNEL TECHNICIAN POC GLUCOSE Routine 11/04/2019 8:02 PM KENNEL TECHNICIAN MANUAL DIFFERENTIAL Routine 11/04/2019 6:09 AM KENNEL TECHNICIAN ESTIMATED GFR Routine 11/04/2019 6:09 AM KENNEL TECHNICIAN CBC WITH PLATELET AND Routine 11/04/2019 DIFFERENTIAL 6:09 AM KENNEL TECHNICIAN BASIC METABOLIC PANEL Routine 11/04/2019 6:09 AM KENNEL TECHNICIAN MANUAL DIFFERENTIAL Routine 11/03/2019 7:30 AM KENNEL TECHNICIAN ESTIMATED GFR Routine 11/03/2019 7:30 AM KENNEL TECHNICIAN CBC WITH PLATELET AND Routine 11/03/2019 DIFFERENTIAL 7:30 AM KENNEL TECHNICIAN BASIC METABOLIC PANEL Routine 11/03/2019 7:30 AM KENNEL TECHNICIAN POC GLUCOSE Routine 11/02/2019 8:13 PM KENNEL TECHNICIAN ANAEROBIC CULTURE Routine 11/02/2019 1:45 PM KENNEL TECHNICIAN GRAM STAIN Routine 11/02/2019 1:45 PM KENNEL TECHNICIAN AEROBIC CULTURE Routine 11/02/2019 1:45 PM KENNEL TECHNICIAN MANUAL DIFFERENTIAL Routine 11/02/2019 7:45 AM KENNEL TECHNICIAN ESTIMATED GFR Routine 11/02/2019 7:45 AM KENNEL TECHNICIAN CBC WITH PLATELET AND Routine 11/02/2019 DIFFERENTIAL 7:45 AM KENNEL TECHNICIAN BASIC METABOLIC PANEL Routine 11/02/2019 7:45 AM KENNEL TECHNICIAN MANUAL DIFFERENTIAL Routine 11/01/2019 5:42 AM KENNEL TECHNICIAN ESTIMATED GFR Routine 11/01/2019 5:42 AM KENNEL TECHNICIAN COMPREHENSIVE METABOLIC Routine 11/01/2019 PANEL 5:42 AM KENNEL TECHNICIAN CBC WITH PLATELET AND Routine 11/01/2019 DIFFERENTIAL 5:42 AM KENNEL TECHNICIAN MANUAL DIFFERENTIAL Routine 10/31/2019 5:15 AM KENNEL TECHNICIAN ESTIMATED GFR Routine 10/31/2019 5:15 AM KENNEL TECHNICIAN COMPREHENSIVE METABOLIC Routine 10/31/2019 PANEL 5:15 AM KENNEL TECHNICIAN CBC WITH PLATELET AND Routine 10/31/2019 DIFFERENTIAL 5:15 AM KENNEL TECHNICIAN PREALBUMIN LEVEL Routine 10/30/2019 4:57 PM KENNEL TECHNICIAN VITAMIN D 25 HYDROXY Routine 10/30/2019 LEVEL 4:57 PM KENNEL TECHNICIAN ESTIMATED GFR Routine 10/30/2019 5:20 AM KENNEL TECHNICIAN COMPREHENSIVE METABOLIC Routine 10/30/2019 PANEL 5:20 AM KENNEL TECHNICIAN HC COMPLETE BLD COUNT Routine 10/30/2019 W/AUTO DIFF 5:20 AM KENNEL TECHNICIAN HEMOGLOBIN A1C Routine 10/29/2019 5:11 AM KENNEL TECHNICIAN MAGNESIUM LEVEL Routine 10/29/2019 5:11 AM KENNEL TECHNICIAN ESTIMATED GFR Routine 10/29/2019 5:11 AM KENNEL TECHNICIAN COMPREHENSIVE METABOLIC Routine 10/29/2019 PANEL 5:11 AM KENNEL TECHNICIAN HC COMPLETE BLD COUNT Routine 10/29/2019 W/AUTO DIFF 5:11 AM KENNEL TECHNICIAN MRSA SCREEN CULTURE Routine 10/28/2019 5:32 PM KENNEL TECHNICIAN VENIPUNC NEED PHYS Routine 10/28/2019 SKILL,DX OR RX 3:03 PM KENNEL TECHNICIAN MANUAL DIFFERENTIAL Routine 10/28/2019 5:14 AM KENNEL TECHNICIAN ESTIMATED GFR Routine 10/28/2019 5:14 AM KENNEL TECHNICIAN COMPREHENSIVE METABOLIC Routine 10/28/2019 PANEL 5:14 AM KENNEL TECHNICIAN CBC WITH PLATELET AND Routine 10/28/2019 DIFFERENTIAL 5:14 AM KENNEL TECHNICIAN LACTIC ACID LEVEL, SEPSIS Timed 10/27/2019 - NOW AND REPEAT 2X EVERY 6:30 PM KENNEL TECHNICIAN 3 HOURS LACTIC ACID LEVEL, SEPSIS Timed 10/27/2019 - NOW AND REPEAT 2X EVERY 3:15 PM KENNEL TECHNICIAN 3 HOURS XR TIBIA FIBULA 2 VW STAT 10/27/2019 RIGHT 12:22 PM KENNEL TECHNICIAN ESTIMATED GFR STAT 10/27/2019 11:52 AM KENNEL TECHNICIAN HCG QUALITATIVE, SERUM STAT 10/27/2019 SCREEN 11:52 AM KENNEL TECHNICIAN PROTHROMBIN TIME WITH INR STAT 10/27/2019 11:52 AM KENNEL TECHNICIAN PARTIAL THROMBOPLASTIN STAT 10/27/2019 TIME (PTT) 11:52 AM KENNEL TECHNICIAN COMPREHENSIVE METABOLIC STAT 10/27/2019 PANEL 11:52 AM KENNEL TECHNICIAN HC COMPLETE BLD COUNT STAT 10/27/2019 W/AUTO DIFF 11:52 AM KENNEL TECHNICIAN LACTIC ACID LEVEL, SEPSIS STAT 10/27/2019 - NOW AND REPEAT 2X EVERY 11:52 AM KENNEL TECHNICIAN 3 HOURS BLOOD CULTURE, AEROBIC & Routine 10/27/2019 ANAEROBIC 11:51 AM KENNEL TECHNICIAN BLOOD CULTURE, AEROBIC & Routine 10/27/2019 ANAEROBIC 11:45 AM KENNEL TECHNICIAN after 04/28/2019 Results * POC glucose (01/06/2020 11:59 AM KENNEL TECHNICIAN) Only the most recent of 12 results within the time period is included. [facility] POC glucose 120 (H) 65 - 99 mg/dL [place] Comment: ROBBY MENDOZA Instructional Technology Facilitator Name: [facility] Krystyna Device ID: [id number] Specimen Performing Organization Address [facility] one Number [facility] [place] [id number] [place] [address] [place] [address] 58 PATHOLOGY AND [facility] [id number] [place] [address] * Estimated GFR (01/06/2020 8:04 AM KENNEL TECHNICIAN) Only the most recent of 14 results within the time period is included. [facility] Estimated GFR >=90 mL/min/1.73 m2 [place] Comment: ROBBY MENDOZA [facility] Interpretation G1 >=90 Normal or high G2 60-89 Mildly decreased G3a 45-59 Mildly to moderately decreased G3b 30-44 Moderately to severely decreased G4 15-29 Severely decreased G5 <15 Kidney failure The eGFR was calculated using the Chronic Kidney Disease Epidemiology Collaboration (CKD-EPI) equation. Interpretation is based on recommendations of the National Kidney Foundation-Kidney Disease Outcomes Quality Initiative (NKF-KDOQI) published in 2014. Specimen Plasma specimen Performing Organization Address City/[facility] Ph one Number [facility] DEPARTMENT [address] [place] [address] 58 PATHOLOGY AND [facility] [address] * Basic metabolic panel (01/06/2020 8:04 AM KENNEL TECHNICIAN) Only the most recent of 6 results within the time period is included. [facility] Sodium 137 135 - 148 mEq/L [facility] Potassium 3.6 3.5 - 5.0 mEq/L [facility] Chloride 96 (L) 98 - 112 mEq/L [facility] CO2 30 24 - 31 mEq/L [facility] Anion gap 11@ANIO 7 - 15 mEq/L [facility] BUN 9 6 - 20 mg/dL [facility] Creatinine 0.60 0.50 - 0.90 mg/dL [facility] Glucose 174 (H) 65 - 99 mg/dL [facility] Calcium 9.6 8.3 - 10.2 mg/dL [facility] Specimen Plasma specimen Performing Organization Address City/State/Zipcode Ph [place] [address] [address] [place] [address] PATHOLOGY AND GENOMIC MEDICINE [facility] [address] [place] [address] [facility] * VENIPUNC NEED PHYS SKILL,DX OR RX (01/05/2020 10:47 AM KENNEL TECHNICIAN) Narrative Performed At Phan Parekh RN 01/05/2020 10: 50 AM Midline Date/Time: 01/05/2020 10:30 AM Performed by: Phan Parekh RN Authorized by: Trina Stewart MD Consent: Consent obtained: Verbal and writte n Consent given by: Patient Risks discussed: arterial puncture, i ncorrect placement, nerve damage, bleeding, infection, pneumothorax, supe rficial thrombus and deep vein thrombus Alternatives discussed: Delayed rocky atment and no treatment [place] protocol: Procedure explained and questions ans wered to patient or proxy's satisfaction: yes Relevant documents present and verifi ed: yes Test results available and properly l abeled: yes Imaging studies available: yes Required blood products, implants, de vices, and special equipment available: yes Site/side marked: yes Immediately prior to procedure, a moriah e out was called: yes Patient identity confirmed: Verball y with patient, arm band and hospital-assigned identification number Pre-procedure details: Hand hygiene: Hand hygiene performed prior to insertion Sterile barrier technique: All elemen ts of maximal sterile technique followed Skin preparation: ChloraPrep Skin preparation agent: Skin preparat ion agent completely dried prior to procedure Anesthesia (see MAR for exact dosages): Anesthesia method: Local infiltrati on Local anesthetic: Lidocaine 1% w/o epi Route of administration: Subcutaneo us Line Placement Details: Patient position: Flat 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 Location: Left cephalic Device Type: Valved Catheter size: 4 Fr Line Characteristics: Catheter Brand: EasyPaint External Catheter Length (cm): 0 Internal Catheter Length (cm): 20 Total Catheter Length (cm): 20 Procedure Details: Landmarks identified: yes Ultrasound guidance: yes Sterile ultrasound techniques: Steril e gel and sterile probe covers were used Number of attempts: 1 Number of PICC kits used during proce dure: 1 Purpose of procedure: Midline Place ment Patency/Placement: Flushes without difficulty, flushed with 10 mL normal saline, injection cap placed and positive blood return PICC placed utlizing ultrasound-guide d Modified Seldinger Technique: Yes Dressing/Securement: Dressing dry a nd intact, antimicrobial dressing dry and intact, catheter securement dev ice and antimicrobial dressing applied Blood Loss Amount: Less than 20 mL Post-Procedure Details: Post-procedure: Dressing applied Patient tolerance of procedure: Prashant erated well, no immediate complications * CBC with platelet and differential (01/05/2020 5:10 AM KENNEL TECHNICIAN) Only the most recent of 13 results within the time period is included. WBC 6.64 4.50 - 11.00 k/uL [facility] RBC 3.80 (L) 4.20 - 5.50 m/uL [facility] HGB 10.6 (L) 12.0 - 16.0 g/dL [facility] HCT 33.2 (L) 37.0 - 47.0 % [facility] MCV 87.4 82.0 - 100.0 fL [facility] MCH 27.9 27.0 - 34.0 pg [facility] MCHC 31.9 31.0 - 37.0 g/dL [facility] RDW - SD 48.3 37.0 - 55.0 fL [facility] MPV 9.9 8.8 - 13.2 fL [facility] Platelet count 284 150 - 400 k/uL [facility] Nucleated RBC 0.00 /100 WBC [facility] Neutrophils 58.3 39.0 - 69.0 % [facility] Lymphocytes 31.2 25.0 - 45.0 % [facility] Monocytes 3.8 0.0 - 10.0 % [facility] Eosinophils 2.4 0.0 - 5.0 % [facility] Basophils 0.2 0.0 - 1.0 % [facility] Specimen Blood Performing Organization Address City/State/Zipcode Ph one Number [facility] DEPARTMENT [place] [id number] [place] [address] [place], [place] [address] PATHOLOGY AND GENOMIC MEDICINE [facility] [address] [place] [address] [facility] * Comprehensive metabolic panel (01/05/2020 5:10 AM KENNEL TECHNICIAN) Only the most recent of 8 results within the time period is included. Sodium 137 135 - 148 mEq/L [facility] Potassium 3.1 (L) 3.5 - 5.0 mEq/L [facility] Chloride 97 (L) 98 - 112 mEq/L [facility] CO2 27 24 - 31 mEq/L [facility] Anion gap 13@ANIO 7 - 15 mEq/L [facility] BUN 10 6 - 20 mg/dL [facility] Creatinine 0.70 0.50 - 0.90 mg/dL [facility] Glucose 204 (H) 65 - 99 mg/dL [facility] Calcium 9.3 8.3 - 10.2 mg/dL [facility] Protein 6.6 6.3 - 8.3 g/dL [place] Comment: [facility] Eprwmqo1444.6-7.0 g/dL [facility] 1 kbvt1941.4-7.6 g/dL 7 months-0rkbn980.1-7.3 g/dL 1-2 rowcq505.6-7.5 g/dL >3 hyqrx333.0-8.0 g/dL 18-7631285.3-8.3 g/dL Albumin 3.1 (L) 3.5 - 5.0 g/dL [facility] A/G ratio 0.9 0.7 - 3.8 [facility] Alkaline 84 35 - 104 U/L [place] phosphatase [facility] AST 17 10 - 35 U/L [facility] ALT 26 5 - 50 U/L [facility] Total bilirubin 0.3 0.0 - 1.2 mg/dL [facility] Specimen Plasma specimen Performing Organization Address City/State/Zipcomd [place] [address] [address] [place], [place] [address] PATHOLOGY AND GENOMIC MEDICINE [facility] [address] [place] [address] [facility] * Manual differential (11/04/2019 6:09 AM KENNEL TECHNICIAN) Only the most recent of 6 results within the time period is included. Manual PERFORMED [place] differential [facility] Neutrophils 83.0 (H) 39.0 - 69.0 % [facility] Lymphocytes 12.0 (L) 25.0 - 45.0 % [facility] Monocytes 1.0 0.0 - 10.0 % [facility] Eosinophils 0.0 0.0 - 5.0 % [facility] Basophils 1.0 0.0 - 1.0 % [facility] Metamyelocytes 2 % [facility] Myelocytes 1 % [facility] Promyelocytes 0 % [facility] Platelet slide Kamilla adequate [place] review [facility] Anisocytosis Moderate [facility] Specimen Performing Organization Address [facility] Ph one Number [facility] [place] [place] [address] [address] [place], [place] [address] PATHOLOGY AND GENOMIC MEDICINE [facility] [address] [place] [address] [facility] * Aerobic culture (11/02/2019 1:45 PM KENNEL TECHNICIAN) Aerobic culture Acinetobacter species [facility] identification/susceptibility to follow (A) Comment: Specimen Information Specimen Source: Abscess Specimen Site: Leg Previous quantitation was Few verified by MICBB at 20:01 on 11/03/2019 Specimen Abscess - Leg Antibiotic Method Susceptibility Organism Amikacin LUANN <=4 mcg/mL: Susceptible Acinetobacter species Aztreonam LUANN >16 mcg/mL: Resistant Acinetobacter species Ceftazidime LUANN 4 mcg/mL: Susceptible Acinetobacter species Ciprofloxacin LUANN 1 mcg/mL: Susceptible Acinetobacter species Ceftriaxone LUANN >32 mcg/mL: Resistant Acinetobacter species Cefepime LUANN >16 mcg/mL: Resistant Acinetobacter species Gentamicin LUANN 2 mcg/mL: Susceptible Acinetobacter species Imipenem LUANN <=0.25 mcg/mL: Susceptible Acinetobacter species Levofloxacin LUANN <=1 mcg/mL: Susceptible Acinetobacter species Meropenem LUANN <=0.125 mcg/mL: Susceptible Acinetobacter species Minocycline LUANN <=1 mcg/mL: Susceptible Acinetobacter species Tobramycin LUANN 1 mcg/mL: Susceptible Acinetobacter species Ampicillin/Sulbactam LUANN 2/1 mcg/mL: Susceptible Acinetobacter species Trimethoprim/Sulfamethoxazole LUANN <=0.5/9.5 mcg/mL: Susceptible Acinetobacter species Performing Organization Address City/State[facility] Ph one Number [facility] DEPARTMENT OF [address] [place] [address] PATHOLOGY AND GENOMIC MEDICINE [place] [facility] [address] [place] [address] * Gram stain (11/02/2019 1:45 PM KENNEL TECHNICIAN) Gram stain No WBC's or organisms seen. [place] isolate Comment: [facility] Specimen Information HOSPITAL Specimen Source: Abscess Specimen Site: Leg Specimen Abscess - Leg Performing Organization Address City/[facility] Ph one Number [facility] DEPARTMENT OF [address] [place] [address] PATHOLOGY AND GENOMIC MEDICINE [place] [facility] [address] [place] [address] * Anaerobic culture (11/02/2019 1:45 PM KENNEL TECHNICIAN) Anaerobic No anaerobic organisms [place] culture isolate isolated. [facility] Comment: HOSPITAL Specimen Information Specimen Source: Abscess Specimen Site: Leg Specimen Abscess - Leg Performing Organization Address [facility] Ph one Number [facility] DEPARTMENT OF [address] [place] [address] PATHOLOGY AND GENOMIC MEDICINE [place] [facility] [address] [place] [address] * Vitamin D 25 hydroxy level (10/30/2019 4:57 PM KENNEL TECHNICIAN) Vitamin D, 11.5 (L) 30.0 - 150.0 ng/mL [place] 25-hydroxy Comment: [facility] This assay reports the sum of HOSPITAL 25-hydroxy vitamin D3 and 25-hydroxy vitamin D2. Reference range: 0-17 years: Deficiency: less than 20ng/mL Optimum level: greater than or equal to 20 ng/mL. 18 years and older: Deficiency: less than 20ng/mL Insufficiency: 20-29 ng/mL Optimum Level: 30-80 ng/mL The assay reportable range is 3.4 155.9 ng/mL. Levels higher than 150 ng/mL may be associated with toxicity. If toxicity is clinically suspected and the reported result is >155.9 ng/mL,contact lab for alternative methods to obtain a definitive level. If separate quantitation of 25-hydroxy vitamin D3 and 25-hydroxy vitamin D2 is needed, please contact lab for alternative methods. Specimen Blood Performing Organization Address [facility] Ph one Number [facility] DEPARTMENT OF [address] [place] [address] PATHOLOGY AND GENOMIC MEDICINE [place] [facility] [address] [place] [address] * Prealbumin level (10/30/2019 4:57 PM KENNEL TECHNICIAN) Prealbumin 13 (L) 16 - 32 mg/dL [facility] Specimen Serum Performing Organization Address [facility] Ph one Number [facility] DEPARTMENT OF [address] [place] [address] PATHOLOGY AND GENOMIC MEDICINE [place] [facility] [address] [place] [address] * Magnesium level (10/29/2019 5:11 AM KENNEL TECHNICIAN) Pathologist [facility] Magnesium 2.5 1.6 - 2.6 mg/dL [facility] Specimen Plasma specimen Performing Organization Address [facility] Ph one Number [facility] [place] [id number] [place] [address] [place] [address] PATHOLOGY AND [facility] [address] * Hemoglobin A1c (10/29/2019 5:11 AM KENNEL TECHNICIAN) Pathologist [facility] Hemoglobin A1C 6.6 (H) 4.0 - 5.6 % [place] Comment: ROBBY MENDOZA HbA1c cutoffs for diagnosing [facility] diabetes: 4.0% - 5.6% = normal 5.7% - 6.4% = increased risk for diabetes (prediabetes)9 >=6.5% = diabetes9 Goals for glycemic control (ADA 2016) < 7.0% Target for non adults with diabetes. More or less stringent targets may be appropriate for individual patients. <7.5% Target for Children and adolescents with type 1 diabetes. Specimen Blood Performing Organization Address [facility] one Number [facility] DEPARTMENT OF [address] [place] [address] [place] [address] PATHOLOGY AND GENOMIC MEDICINE [address] [place] * MRSA screen culture (10/28/2019 5:32 PM KENNEL TECHNICIAN) Pathologist [facility] MRSA screen No Methicillin Resistant [place] culture isolate Staphylococcus aureus [facility] isolated. HOSPITAL Comment: Specimen Information Specimen Source: Nares Specimen Site: Left Specimen Nares - Left Performing Organization Address City/[facility] Ph one Number [facility] DEPARTMENT OF [address] [place] [id number] PATHOLOGY AND GENOMIC MEDICINE [address] * VEN[facility] NEED PHYS SKILL,DX OR RX (10/28/2019 3:03 PM KENNEL TECHNICIAN) Narrative Performed At Phan Parekh RN 10/28/2019 3 :06 PM Midline Date/Time: 10/28/2019 3:04 PM Performed by: Phan Parekh RN Authorized by: Brittany King MD Consent: Consent obtained: Verbal and writte n Consent given by: Patient Risks discussed: arterial puncture, i ncorrect placement, nerve damage, bleeding, infection, pneumothorax, supe rficial thrombus and deep vein thrombus Alternatives discussed: No treatmen t and delayed treatment Bolton protocol: Procedure explained and questions ans wered to patient or proxy's satisfaction: yes Relevant documents present and verifi ed: yes Test results available and properly l abeled: yes Imaging studies available: yes Required blood products, implants, de vices, and special equipment available: yes Site/side marked: yes Immediately prior to procedure, a moriah e out was called: yes Patient identity confirmed: Verball y with patient, arm band and hospital-assigned identification number Pre-procedure details: Hand hygiene: Hand hygiene performed prior to insertion Sterile barrier technique: All elemen ts of maximal sterile technique followed Skin preparation: ChloraPrep Skin preparation agent: Skin preparat ion agent completely dried prior to procedure Anesthesia (see MAR for exact dosages): Anesthesia method: Local infiltrati on Local anesthetic: Lidocaine 1% w/o epi Route of administration: Subcutaneo us Midline Line Placement Details: Extremity Cirumference Upper (cm): 40 Extremity Circumference Forearm (cm): 30 Extremity Circumference Site: 38 Patient position: Flat 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 Location: Right cephalic Device Type: Non-valved Catheter size: 4 Fr (18 gauge) Midline Characteristics: Catheter Brand: Stepsss External Catheter Length (cm): 0 Internal Catheter Length (cm): 10 Total Catheter Length (cm): 10 Procedure Details: Ultrasound guidance: yes Sterile ultrasound techniques: Steril e gel and sterile probe covers were used Number of attempts: 1 Number of PICC kits used during proce dure: 1 Purpose of procedure: Midline Place ment Patency/Placement: Flushes without difficulty, flushed with 10 mL normal saline, positive blood return an d injection cap placed PICC placed utlizing ultrasound-guide d Modified Seldinger Technique: Yes (accellerated seldinger technique) Dressing/Securement: Dressing dry a nd intact, antimicrobial dressing dry and intact, catheter securement dev ice and antimicrobial dressing applied Blood Loss Amount: Less than 20 mL Post-Procedure Details: Post-procedure: Dressing applied Patient tolerance of procedure: Prashant erated well, no immediate complications * Lactic acid level, SEPSIS - Now and repeat 2x every 3 hours (10/27/2019 6:30 PM KENNEL TECHNICIAN) Only the most recent of 3 results within the time period is included. Lactic acid 1.4 0.5 - 2.2 mmol/L [facility] Specimen Plasma specimen Performing Organization Address [facility] one Number [facility] DEPARTMENT OF [address] [place] [address] [place], [place] [address] PATHOLOGY AND GENOMIC MEDICINE [address] [place] [address] [facility] * XR Tibia Fibula 2 Vw Right (10/27/2019 12:22 PM KENNEL TECHNICIAN) Specimen Narrative Performed At Study:XR TIBIA FIBULA 2 VW RIGHT [facility] History:possible infection COMPARISON:None. IMPRESSION: 2 views of the right leg. No acute frac ture or erosions. There is a focal opacity in the anterior soft tissues di stally which is nonspecific. No soft tissue air. [id number] Procedure Note Hm Interface, Radiology Results Incoming - 10/27/2019 12:55 PM KENNEL TECHNICIAN Study:XR TIBIA FIBULA 2 VW RIGHT History:possible infection COMPARISON:None. IMPRESSION: 2 views of the right leg. No acute fract ure or erosions. There is a focal opacity in the anterior soft tissues distally which is nonspecific. No soft tissue air. [id number] Performing Organization Address [facility] one Number [facility] [address] [place] [address] * Partial thromboplastin time, activated (10/27/2019 11:52 AM KENNEL TECHNICIAN) PTT 40.1 (H) 23.0 - 36.0 sec [place] Comment: ROBBY MENDOZA PTT therapeutic range for [facility] unfractionated heparin is 61.0-112.0 seconds which corresponds to Anti-Xa 0.3-0.7 U/ml. Specimen Blood Performing Organization Address [facility] Ph one Number [facility] [place] [address] [address] [place], [place] [address] PATHOLOGY AND GENOMIC MEDICINE [place] [address] [facility] [place] [address] * Prothrombin time with INR (10/27/2019 11:52 AM KENNEL TECHNICIAN) Pathologist [facility] Prothrombin 13.2 11.5 - 14.5 sec [facility] INR 1.0 [place] Comment: [place] [place] The International Normalized [facility] Ratio (INR) is a therapeutic monitoring tool for patients who are stable on oral anticoagulant therapy. An INR of 2.0-3.0 is suggested for deep vein thrombosis/pulmonary embolism. Specimen Blood Performing Organization Address City/[facility] Ph one Number [facility] [place] [address] [place] [address] PATHOLOGY AND GENOMIC MEDICINE [facility] [address] [address] * hCG qualitative, serum screen (10/27/2019 11:52 AM KENNEL TECHNICIAN) Pathologist [facility] hCG Negative [facility] Specimen Blood Performing Organization Address City/[facility] Ph one Number [facility] [place] [place] [address] [place] [address] PATHOLOGY AND GENOMIC MEDICINE [facility] [address] [address] [place] [address] * Blood culture, aerobic & anaerobic (10/27/2019 11:51 AM KENNEL TECHNICIAN) Only the most recent of 2 results within the time period is included. [facility] Blood culture No growth after 5 days of [place] isolate incubation. [facility] Comment: HOSPITAL Specimen Information Specimen Source: Blood Specimen Site: Antecubital, right Specimen Blood - Antecubital, right Performing Organization Address City/State[facility] Ph one Number [facility] DEPARTMENT OF [address] [place] [address] PATHOLOGY AND GENOMIC MEDICINE [place] [id number] HOSPITAL after 04/28/2019 Insurance Type Payer Benefit Subscriber ID Effective Phone Address Plan / Dates Group PPO BCBS BCBS xxxxxxxxxxxx 2013-P CHOICE resent PPO/[employer] PPO PPO BCBS BCBS xxxxxxxxxxxx 2013-P CHOICE resent PPO/[employer] PPO Advance Directives For more information, please contact: [phone] Patient Reinstatement Clerk Explanation Type Date Recorded Advance Directives, 10/27/2019 11:59 AM Living Will and Medical Power of Bench Inspector Advance Directives, 01/04/2020 9:39 AM Living Will and Medical Power of Bench Inspector Date Inactivated Comments Code Status Date Activated 11/06/2019 10:43 PM Full Code 10/27/2019 2:52 PM Code Status decision reached by: Patient
--- OUTSIDE RECORDS SUMMARY | 2020-04-28 18:08 | XMS REPORT | Continuity of Care Document ---
Author Author [facility] t Organization [facility] Address [address] [place] [address] Phone Unavailable Care Team Providers Care Printing Plate Setter Name Role Phone FERNANDO CHIU, Anitra SOTO PCP Pat CHIU, Trina Attphys Fernando CHIU, Charlie Soto Attphys [phone] Andres CHIU, Kimberlyn Dumont Attphys Shweta HANKINS, Danisha Attphys Unavailable UMBERTO DRIVER Attphys Unavailable Liu POWELL Attphys Unavailable BRITTANY KING Admphys Unavailable Payers Payer Name Policy Type Policy Number Effective Date Expiration Date S ouranaly BCBSBCBS CHOICE PPO/FEDERAL EMPL PPOxxxxxxxxxxxx2013-Pre sentPPO xxxxxxxxxxxx 2013 00:00:00 [facility] Ppo [id number] 2019 00:00:00 [facility] Problems Condition Name Condition Details Condition Category Status Onset Date Resolution Date Last Treatment Date Treating Clinician Comments Source Morbid obesity Morbid obesity Disease Active 2020-01-04 00:00:00 Hirsch Religion Type 2 diabetes mellitus Type 2 diabetes mellitus Disease Acti ve 2020-01-04 00:00:00 [facility] Cellulitis of right lower extremity Cellulitis of right lower ex tremity Disease Active 2020-01-03 00:00:00 Bradykofi kashif Religion Type II diabetes mellitus with manifestations Type II diabetes mellitus with manifestations Disease Active 2019-11-06 00:00:00 Torrey Clineist Cellulitis of right lower extremity Cellulitis of right lower ex tremity Disease Active 2019-10-27 00:00:00 Aydin rowland Religion Hypokalemia Hypokalemia Disease Active 2019-10-27 00:00:00 Torrey Paniagua Hyponatremia Hyponatremia Disease Active 2019-10-27 00:00:00 Torrey Paniagua Morbid obesity Morbid obesity Disease Active 2019-10-27 00:00:00 Torrey Paniagua Dehydration Dehydration Problem Active 2015-10-06 00:00:00 [facility] Abdominal pain Abdominal pain Problem Active [facility] Abscess of abdominal wall Abscess of abdominal wall Problem Active [facility] Allergies, Adverse Reactions, Alerts Allergy Name Allergy Type Status Severity Reaction(s) Onset Date Inacti ve Date Treating Clinician Comments Source Sulfa (Sulfonamide Antibiotics) Propensity to adverse reactions to drug Active Hives 2020-01-03 00:00:00 Aydin Paniagua Vancomycin Propensity to adverse reactions to drug Active Hives 2020-01-03 00:00:00 Torrey kirby Vancomycin Propensity to adverse reactions to drug Active Hives, Itching, Other (See Comments) 2019-10-28 00:00:00 Redness of skin (Facial, RUE, Back) Torrey Paniagua Rifampin Propensity to adverse reactions to drug Active Swelling 2019-10-27 00:00:00 Torrey Ramachandran t Sulfa (Sulfonamide Antibiotics) Propensity to adverse reactions to drug Active Unknown Reaction 2019-10-27 00:00:00 Torrey Paniagua Sulfa (Sulfonamide Antibiotics) Allergy to Substance Active 2017-02-07 00:00:00 [facility] Rifampin Allergy to Substance Active 2017-02-07 00:00:00 [facility] Social History Social Habit Start Date Stop Date Quantity Comments Source History of tobacco use Cigarette Smoker Torrey Paniagua Sex Assigned At Joao mcmanus Religion Alcohol intake 2020-01-23 00:00:00 2020-01-23 00:00:00 Current drinker of alcohol (finding) Torrey Paniagua Tobacco Comment 2019-10-31 00:00:00 2019-10-31 00:00:00 1 pack per we ek Torrey Paniagua Alcohol Comment 2019-10-31 00:00:00 2019-10-31 00:00:00 rarely Torrey Paniagua Smoking Status Start Date Stop Date Source Current every day smoker 2020-01-23 00:00:00 Tobiasschuyler medeirosty Paniagua Medications Ordered Medication Name Filled Medication Name Start Date Stop Da te Current Medication? Ordering Clinician Indication Dosage Frequency Signature (SIG) Comments Components Source hydroCHLOROthiazide (HYDRODIURIL) 25 MG tablet 2020-01-23 08:55: 06 Yes 25mg QD Take 25 mg by mouth daily. H stefani Paniagua metFORMIN (GLUCOPHAGE) 500 mg tablet 2020-01-23 08:55:06 Ye s 500mg Q.5D Take 500 mg by mouth 2 (two) times a day with meals. Torrey Paniagua gabapentin (NEURONTIN) 100 mg capsule 2020-01-23 08:55:06 Yes 100mg Q.5D Take 100 mg by mouth 2 (two) times a day. Torrey Paniagua ergocalciferol (VITAMIN D2) 50,000 unit capsule 2020-01-23 08:55 :06 Yes [id number] Q7D Take 50,000 Units by mouth once a week. Torrey Paniagua oxyCODone-acetaminophen (PERCOCET) 10-325 mg per tablet 2020-01-23 08:55:06 Yes acute pain 1{tbl} Q8H Take 1 tablet b y mouth every 8 (eight) hours as needed for moderate pain .acute pain. Blayne Paniagua linezolid (ZYVOX) 600 mg tablet 2020-01-23 08:55:06 00:00:00 No 600mg Q.5D Take 600 mg by mouth 2 (two) times a day. Torrey Paniagua levoFLOXacin (LEVAQUIN) 750 MG tablet 2020-01-23 08:55 :06 2020-01-06 00:00:00 No 750mg QD Take 750 mg by mouth daily. Torrey Paniagua meropenem 1,000 mg in sodium chloride 0.9 % MBP 100 mL IVPB 2020-01-06 00:00:00 2020-01-27 23:59:00 No 1000mg Q6H Infuse 1,000 mg into a venous catheter every 6 (six) hours for 21 days. Torrey Paniagua acetaminophen-codeine (TYLENOL WITH CODEINE #3) 300-30 mg pe r tablet 2020-01-06 00:00:00 2020-01-13 23:59:00 No acute pain 1{tbl} Q8H Take 1 tablet by mouth every 8 (eight) hours as needed for moderate pain for up to 7 days .acute pain. Torrey Paniagua ergocalciferol (VITAMIN D2) 50,000 unit capsule 2019-11-07 00:00:00 2019-12-07 23:59:00 No [id number] Q7D Take 1 capsule (50,000 Units total) by mouth once a week for 30 days. Torrey Paniagua metFORMIN (GLUCOPHAGE) 500 mg tablet 2019-11-06 00:00: 00 2019-12-06 23:59:00 No 500mg Q.5D Take 1 tablet ( 500 mg total) by mouth 2 (two) times a day with meals for 30 days. Torrey Paniagua furosemide (LASIX) 20 mg tablet 2019-11-06 00:00:00 23:59:00 No 20mg Q24H Take 1 tablet (20 mg total) by mouth daily as needed (edema) for up to 30 days. Torrey Paniagua linezolid (ZYVOX) 600 mg tablet 2019-11-06 00:00:00 23:59:00 No 600mg Q.5D Take 1 tablet (600 m g total) by mouth 2 (two) times a day for 14 days. Torrey Paniagua linezolid (ZYVOX) 600 mg tablet 2019-11-06 00:00:00 23:59:00 No 600mg Q.5D Take 1 tablet (600 m g total) by mouth 2 (two) times a day for 14 days. Torrey Paniagua oxyCODone-acetaminophen (PERCOCET) 10-325 mg per tablet 2019-11-06 00:00:00 2019-11-13 23:59:00 No acute pain 1{tbl} Q8H Take 1 tablet by mouth every 8 (eight) hours as needed for moderate pain for up to 7 days .Acute Pain. Max Daily Amount: 3 tablets Torrey kirby Acetaminophen With Codeine (Tylenol With Codeine #3 Tablet) 1 Each Tablet, 300 Mg Oral Acetaminophen With Codeine (Tylenol With Codeine #3 Tablet) 1 Each Tablet, 300 Mg Oral 2017-02-07 00:00:00 No 300 Every 4 Hours as needed for Pain [facility] Levofloxacin (Levaquin) 500 Mg Tablet, 500 Mg Oral Lev ofloxacin (Levaquin) 500 Mg Tablet, 500 Mg Oral 2017-02-07 00:00:00 No 500 D aily [facility] Clindamycin Hcl 150 Mg Capsule, 300 Mg Oral Clindamyci n Hcl 150 Mg Capsule, 300 Mg Oral 2017-01-16 00:00:00 No 300 Every 8 Hours [facility] Acetaminophen (Tylenol Extra Strength) 500 Mg Tablet, 500 Mg Oral Acetaminophen (Tylenol Extra Strength) 500 Mg Tablet, 500 Mg Oral 2015-10-06 00:0 0:00 No 500 As Needed for Migraine [facility] Cephalexin Monohydrate (Keflex) 500 Mg Capsule, 500 Mg Oral Cephalexin Monohydrate (Keflex) 500 Mg Capsule, 500 Mg Oral 2015-10-06 00:00:00 No 500 Every 6 Hours [facility] Hydrocodone Bit/Acetaminophen ([place] 7.5-325 Tablet) 1 Each Tablet, 1 Ea Oral Hydrocodone Bit/Acetaminophen ([place] 7.5-325 Tablet) 1 Each Tablet, 1 Ea Oral 2015-10-06 00:00:00 No 1 Every 4 Hours as nee ded for Pain [facility] Vital Signs Vital Name Observation Time Observation Value Comments Source Systolic blood pressure 2020-01-06 10:49:14 135 mm[Hg] Torrey Paniagua Diastolic blood pressure 2020-01-06 10:49:14 79 mm[Hg] Torrey Paniagua Heart rate 2020-01-06 10:49:14 87 /min Torrey Paniagua Body temperature 2020-01-06 10:49:14 36.72 Urmila Brady ton Religion Respiratory rate 2020-01-06 10:49:14 18 /min Brady Paniagua Oxygen saturation in Arterial blood by Pulse oximetry 01-06 10:49:14 98 /min Torrey Paniagua Body height 2020-01-04 00:24:00 170.2 cm Torrey Paniagua Body weight 2020-01-04 00:24:00 172.367 kg Torrey Paniagua BMI 2020-01-04 00:24:00 59.52 kg/m2 Torrey Religion Procedures Procedure Date / Time Performed Performing Clinician Sourc e POC GLUCOSE 2020-01-06 11:59:00 Brittany King Religion BASIC METABOLIC PANEL 2020-01-06 08:04:00 Brittany King Religion ESTIMATED GFR 2020-01-06 08:04:00 Brittany King Religion POC GLUCOSE 2020-01-06 05:33:00 Brittany King Religion POC GLUCOSE 2020-01-05 20:50:00 Brittany King [facility] Religion POC GLUCOSE 2020-01-05 16:18:00 Brittany King Religion POC GLUCOSE 2020-01-05 11:26:00 Brittany King Religion VENIPUNC NEED PHYS SKILL,DX OR RX 2020-01-05 10:47:51 Phan Parekh Religion POC GLUCOSE 2020-01-05 05:39:00 Brittany King Religion HC COMPLETE BLD COUNT W/AUTO DIFF 2020-01-05 05:10:00 Vijay Lee Religion COMPREHENSIVE METABOLIC PANEL 2020-01-05 05:10:00 Kathy Lee Religion ESTIMATED GFR 2020-01-05 05:10:00 Kathy Lee Religion POC GLUCOSE 2020-01-04 20:10:00 Brittany King Hirsch Religion POC GLUCOSE 2020-01-04 15:17:00 Brittany King Religion POC GLUCOSE 2020-01-04 11:17:00 Brittany King Religion POC GLUCOSE 2020-01-04 05:20:00 Brittany King Religion HC COMPLETE BLD COUNT W/AUTO DIFF 2020-01-04 05:15:00 Vijay Lee Religion COMPREHENSIVE METABOLIC PANEL 2020-01-04 05:15:00 Kathy Lee Religion ESTIMATED GFR 2020-01-04 05:15:00 Kathy Lee on Religion BASIC METABOLIC PANEL 2019-11-06 05:06:00 Kathy Lee Religion HC COMPLETE BLD COUNT W/AUTO DIFF 2019-11-06 05:06:00 Vijay Lee Religion ESTIMATED GFR 2019-11-06 05:06:00 Kathy Lee on Religion BASIC METABOLIC PANEL 2019-11-05 05:00:00 Kathy Lee Religion HC COMPLETE BLD COUNT W/AUTO DIFF 2019-11-05 05:00:00 Vijay Lee Religion ESTIMATED GFR 2019-11-05 05:00:00 Kathy Lee on Religion POC GLUCOSE 2019-11-04 20:02:00 Brittany King Religion BASIC METABOLIC PANEL 2019-11-04 06:09:00 Kathy Lee Religion CBC WITH PLATELET AND DIFFERENTIAL 2019-11-04 06:09:00 Jack Lee Religion ESTIMATED GFR 2019-11-04 06:09:00 Kathy Lee on Religion MANUAL DIFFERENTIAL 2019-11-04 06:09:00 Kathy Lee Religion BASIC METABOLIC PANEL 2019-11-03 07:30:00 Kathy Lee Religion CBC WITH PLATELET AND DIFFERENTIAL 2019-11-03 07:30:00 Jack Lee Religion ESTIMATED GFR 2019-11-03 07:30:00 Kathy Lee on Religion MANUAL DIFFERENTIAL 2019-11-03 07:30:00 Kathy Lee Religion POC GLUCOSE 2019-11-02 20:13:00 Brittany King Religion AEROBIC CULTURE 2019-11-02 13:45:00 Brittany King Religion GRAM STAIN 2019-11-02 13:45:00 Brittany King Religion ANAEROBIC CULTURE 2019-11-02 13:45:00 Brittany King Religion BASIC METABOLIC PANEL 2019-11-02 07:45:00 Kathy Lee Religion CBC WITH PLATELET AND DIFFERENTIAL 2019-11-02 07:45:00 Jesus Jack humble Ronnshireen Hirsch Religion ESTIMATED GFR 2019-11-02 07:45:00 Kathy Lee on Religion MANUAL DIFFERENTIAL 2019-11-02 07:45:00 Jesus Kathyterence ko Religion CBC WITH PLATELET AND DIFFERENTIAL 2019-11-01 05:42:00 Jesus Jack humble Ronn[place]en Hirsch Religion COMPREHENSIVE METABOLIC PANEL 2019-11-01 05:42:00 Jesus Kathyterence Hirsch Religion ESTIMATED GFR 2019-11-01 05:42:00 Kathy Lee on Religion MANUAL DIFFERENTIAL 2019-11-01 05:42:00 Jesus Kathyterence ko Religion CBC WITH PLATELET AND DIFFERENTIAL 2019-10-31 05:15:00 Jack Lee Religion COMPREHENSIVE METABOLIC PANEL 2019-10-31 05:15:00 Jesus Kathyterence Hirsch Religion ESTIMATED GFR 2019-10-31 05:15:00 Jesus Kathyterence Perrin on Religion MANUAL DIFFERENTIAL 2019-10-31 05:15:00 Kathy Leeyonathan Religion VITAMIN D 25 HYDROXY LEVEL 2019-10-30 16:57:00 Jonelle Thornton [facility] PREALBUMIN LEVEL 2019-10-30 16:57:00 Jonelle Thornton [place] [facility] HC COMPLETE BLD COUNT W/AUTO DIFF 2019-10-30 05:20:00 Vijay Lee Religion COMPREHENSIVE METABOLIC PANEL 2019-10-30 05:20:00 Jesus Kathyterence Hirsch Religion ESTIMATED GFR 2019-10-30 05:20:00 Kathy Lee on Religion HC COMPLETE BLD COUNT W/AUTO DIFF 2019-10-29 05:11:00 Vijay Lee Religion COMPREHENSIVE METABOLIC PANEL 2019-10-29 05:11:00 Kathy Lee Religion ESTIMATED GFR 2019-10-29 05:11:00 Kathy Lee on Religion MAGNESIUM LEVEL 2019-10-29 05:11:00 Kathy Lee on Religion HEMOGLOBIN A1C 2019-10-29 05:11:00 Brittany King Religion MRSA SCREEN CULTURE 2019-10-28 17:32:00 Burke Dickson on Religion VENIPUNC NEED PHYS SKILL,DX OR RX 2019-10-28 15:03:56 Phan Parekh CBC WITH PLATELET AND DIFFERENTIAL 2019-10-28 05:14:00 Jack Lee COMPREHENSIVE METABOLIC PANEL 2019-10-28 05:14:00 Kathy Lee ESTIMATED GFR 2019-10-28 05:14:00 Kathy Lee on Religion MANUAL DIFFERENTIAL 2019-10-28 05:14:00 Kathy Lee [place] Religion LACTIC ACID LEVEL, SEPSIS - NOW AND REPEAT 2X EVERY 3 HOURS 2019-10-27 18:30:00 Brittany King Religion LACTIC ACID LEVEL, SEPSIS - NOW AND REPEAT 2X EVERY 3 HOURS 2019-10-27 15:15:00 Brittany King Religion XR TIBIA FIBULA 2 VW RIGHT 2019-10-27 12:22:07 Tim Campos LACTIC ACID LEVEL, SEPSIS - NOW AND REPEAT 2X EVERY 3 HOURS 2019-10-27 11:52:00 Brittany King Religion HC COMPLETE BLD COUNT W/AUTO DIFF 2019-10-27 11:52:00 Beatrice Campos in Kimberlyn Paniagua COMPREHENSIVE METABOLIC PANEL 2019-10-27 11:52:00 Tim Campos PARTIAL THROMBOPLASTIN TIME (PTT) 2019-10-27 11:52:00 Amita Camposs in Kimberlyn Paniagua PROTHROMBIN TIME WITH INR 2019-10-27 11:52:00 Tim Campos HCG QUALITATIVE, SERUM SCREEN 2019-10-27 11:52:00 Tim Campos ESTIMATED GFR 2019-10-27 11:52:00 Tim Campos M ethodist BLOOD CULTURE, AEROBIC & ANAEROBIC 2019-10-27 11:51:00 Amita Campos BLOOD CULTURE, AEROBIC & ANAEROBIC 2019-10-27 11:45:00 Amita Campos Plan of Care Planned Activity Planned Date Details Comments Source Future Scheduled Test 2020-06-26 00:00:00 INFLUENZA VACCINE [code = INFLUENZA VACCINE] Torrey Paniagua Future Scheduled Test 1999 00:00:00 Screening for sachin gnant neoplasm of cervix (procedure) [code = 992711164] Torrey Ramachandran Future Scheduled Test 1988 00:00:00 DIABETIC FOOT EXAM [code = DIABETIC FOOT EXAM] Torrey Paniagua Future Scheduled Test 1988 00:00:00 URINE MICROALBUMIN [code = URINE MICROALBUMIN] Torrey Paniagua Future Scheduled Test 1978 00:00:00 DIABETIC RETINAL E YE EXAM [code = DIABETIC RETINAL EYE EXAM] Torrey Paniagua Encounters Start Date/Time End Date/Time Encounter Type [facility] Encounter ID Source 2020-01-03 00:00:00 2020-01-06 00:00:00 Inpatient BRITTANY KING [facility] [id number] Torrey Paniagua 2020-01-03 19:21:00 2020-01-03 22:45:00 Departed Emergency Room [facility] [id number] [facility] - Patients [facility] 2019-11-18 17:31:00 2019-11-18 20:29:00 Departed Emergency Room [facility] [id number] [facility] Patients [facility] 2019-10-27 00:00:00 2019-11-06 00:00:00 Inpatient BRITTANY KING [facility] [id number] [facility] 2019-09-07 19:20:00 2019-09-07 19:47:00 Departed Emergency Room [facility] [id number] [facility] Patients [facility] 2019-09-02 23:53:00 2019-09-05 13:00:00 Discharged Inpatient 1 UMBERTO DRIVER [facility] [id number] [facility] 2019-09-02 07:14:00 2019-09-02 08:13:00 Departed Emergency Room [facility] [id number] [facility] 2018-08-30 02:58:00 2018-08-30 06:03:00 Departed Emergency Room 1 CRISTINA POWELL [facility] [id number] [facility] Results Test Description Test Time Test Comments Results Result Comments Source POC glucose 2020-01-06 12:05:37 Test Item POC glucose (test code = 11906-2) 120 mg/dL 65-99 H Manager Community Development Name: Caroline Olguin ID: [id number] Lab Interpretation (test code = 12713-5) Abnormal [facility] metabolic [id number] 08:31:55* Test Item Value Reference Range Interpretation Comments Sodium (test code = 2951-2) 137 135- 148 mEq/L Potassium (test code = 2823-3) 3.6 3.5- 5.0 mEq/L Chloride (test code = 5-0) 96 98- 112 mEq/L L CO2 (test code = 8-9) 30 24- 31 mEq/L Anion gap (test code = 97671-4) 11@ANIO 7- 15 mEq/L BUN (test code = 3094-0) 9 mg/dL 6-20 Creatinine (test code = 2160-0) 0.60 mg/dL 0.5-0.9 Glucose (test code = 2345-7) 174 mg/dL 65-99 H Calcium (test code = 90458-6) 9.6 mg/dL 8.3-10.2 Lab Interpretation (test code = 94562-7) Abnormal [facility] MethodistEstimated [id number] 08:31:55* Test Item Value Reference Range Interpretation Comments Estimated GFR (test code = 5488) >=90 mL/min/1.73 m2 Catergory Units InterpretationG1 >=90 Normal or highG2 60-89 Mildly osvstubnhO4y 45-59 Mildly to moderately tfkeknfzkP8m 30-44 Moderately to severely decreasedG4 15-29 Severely decreasedG5 <15 Kidney failureThe eGFR was calculated using the Chronic Kidney Disease Epidemiology Collaboration (CKD-EPI) equation. Interpretation is based on recommendations of the National Kidney Foundation-Kidney Disease Outcomes Quality Initiative (NKF-KDOQI) published in 2014. Hirsch MethoddorisVENIPPUJA NEED PHYS SKILL,DX OR [id number] 10:47:51Phan Parekh RN 01/05/2020 10:50 AMMidlineDate/Time: 01/05/2020 10:30 AMPerformed by: Phan Parekh, RNAuthorized by: Trina Stewart MD Consent: Consent obtained: Verbal and written Consent given by: Patient Risks discussed: a rterial puncture, incorrect placement, nerve damage, bleeding, infection, pneumo thorax, superficial thrombus and deep vein thrombus Alternatives discussed: De layed treatment and no treatmentUniversal protocol: Procedure explained and qu estions answered to patient or proxy's satisfaction: yes Relevant documents p resent and verified: yes Test results available and properly labeled: yes Imaging studies available: yes Required blood products, implants, devices, an d special equipment available: yes Site/side marked: yes Immediately prior to procedure, a time out was called: yes Patient identity confirmed: Verbal ly with patient, arm band and hospital-assigned identification numberPre-procedu re details: Hand hygiene: Hand hygiene performed prior to insertion Sterile barrier technique: All elements of maximal sterile technique followed Skin p reparation: ChloraPrep Skin preparation agent: Skin preparation agent complete ly dried prior to procedure Anesthesia (see MAR for exact dosages): Anesthesi a method: Local infiltration Local anesthetic: Lidocaine 1% w/o epi Route of administration: SubcutaneousLine Placement Details: Patient position: Flat Indication: 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 Location: Left cephalic Device Type: Valved Catheter size: 4 FrLine Characteristics: Cat heter Brand: VaxInnate External Catheter Length (cm): 0 Internal Catheter Length (cm): 20 Total Catheter Length (cm): 20Procedure Details: Landmarks identif ied: yes Ultrasound guidance: yes Sterile ultrasound techniques: Sterile g el and sterile probe covers were used Number of attempts: 1 Number of PICC kits used during procedure: 1 Purpose of procedure: Midline Placement Patenc y/Placement: Flushes without difficulty, flushed with 10 mL normal saline, inje ction cap placed and positive blood return PICC placed utlizing ultrasound-guid ed Modified Seldinger Technique: Yes Dressing/Securement: Dressing dry and i ntact, antimicrobial dressing dry and intact, catheter securement device and ant imicrobial dressing applied Blood Loss Amount: Less than 20 mLPost-Procedure D etails: Post-procedure: Dressing applied Patient tolerance of procedure: To lerated well, no immediate complicationsLacrosse MethodistComprehensive metabolic [id number] 05:58:50* Test Item Value Reference Range Interpretation Comments Sodium (test code = 2951-2) 137 135- 148 mEq/L Potassium (test code = 2823-3) 3.1 3.5- 5.0 mEq/L L Chloride (test code = 5-0) 97 98- 112 mEq/L L CO2 (test code = 2027-9) 27 24- 31 mEq/L Anion gap (test code = 91786-9) 13@ANIO 7- 15 mEq/L BUN (test code = 3094-0) 10 mg/dL 6-20 Creatinine (test code = 2160-0) 0.70 mg/dL 0.5-0.9 Glucose (test code = 2345-7) 204 mg/dL 65-99 H Calcium (test code = 84184-8) 9.3 mg/dL 8.3-10.2 Protein (test code = 2885-2) 6.6 g/dL 6.3-8.3 Widfcau0119.6-7.0 g/dL1 vsnt9850.4-7.6 g/dL7 months-1wwyc175.1-7.3 g/dL1-2 .6-7.5 g/dL>3 cocnm457.0-8.0 g/mB49-1023488.3-8.3 g/dL Albumin (test code = 1751-7) 3.1 g/dL 3.5-5 L A/G ratio (test code = 1759-0) 0.9 0.7-3.8 Alkaline phosphatase (test code = 6768-6) 84 U/L 35-104 AST (test code = 1920-8) 17 U/L 10-35 ALT (test code = 1742-6) 26 U/L 5-50 Total bilirubin (test code = 1974-) 0.3 mg/dL 0-1.2 Lab Interpretation (test code = 24578-1) Abnormal [facility] MethodistCBC with platelet and [id number] 05:37:01* Test Item Value Reference Range Interpretation Comments WBC (test code = 11108-6) 6.64 4.50- 11.00 k/uL RBC (test code = 41245-3) 3.80 m/uL 4.2-5.5 L HGB (test code = 718-7) 10.6 g/dL 12-16 L HCT (test code = 4544-3) 33.2 % 37-47 L MCV (test code = 787-2) 87.4 fL 82-100 MCH (test code = 785-6) 27.9 pg 27-34 MCHC (test code = 786-4) 31.9 g/dL 31-37 RDW - SD (test code = 68215-5) 48.3 fL 37-55 MPV (test code = 13689-2) 9.9 fL 8.8-13.2 Platelet count (test code = 72928-0) 284 150- 400 k/uL Nucleated RBC (test code = 47739-9) 0.00 /100 WBC Neutrophils (test code = 22336-4) 58.3 % 39-69 Lymphocytes (test code = 36624-1) 31.2 % 25-45 Monocytes (test code = 56194-0) 3.8 % 0-10 Eosinophils (test code = 83344-5) 2.4 % 0-5 Basophils (test code = 75071-4) 0.2 % 0-1 Lab Interpretation (test code = 05285-1) Abnormal [facility] MethodistAnaerobic [id number] 09:19:21* Test Item Value Reference Range Interpretation Comments Anaerobic culture isolate (test code = 552) No anaerobic organis ms isolated. Specimen InformationSpecimen Source: Abs cessSpecimen Site: Leg Lacrosse MethodistGram [id number] 19:00:09* Test Item Value Reference Range Interpretation Comments Gram stain isolate (test code = 1469) No WBC's or organisms seen. Specimen InformationSpecimen Source: AbscessSpecimen Site: Leg [facility] MethodistManual [id number] 06:40:54* Test Item Value Reference Range Interpretation Comments Manual differential (test code = 20576-7) PERFORMED Neutrophils (test code = 22855-2) 83.0 % 39-69 H Lymphocytes (test code = 12083-8) 12.0 % 25-45 L Monocytes (test code = 49738-2) 1.0 % 0-10 Eosinophils (test code = 67487-7) 0.0 % 0-5 Basophils (test code = 47133-8) 1.0 % 0-1 Metamyelocytes (test code = 740-1) 2 % Myelocytes (test code = 749-2) 1 % Promyelocytes (test code = 783-1) 0 % Platelet slide review (test code = 76058-6) Kamilla adequate Anisocytosis (test code = 702-1) Moderate Lab Interpretation (test code = 77392-2) Abnormal [place] MethodistBlood culture, aerobic & [id number] 21:33:04* Test Item Value Reference Range Interpretation Comments Blood culture isolate (test code = 600-7) No growth after 5 days of incubation. Specimen InformationSpecimen Source: BloodSpecimen Site: Antecubital, right [facility] MethodistMRSA screen [id number] 17:47:17* Test Item Value Reference Range Interpretation Comments MRSA screen culture isolate (test code = 1754) No Meth icillin Resistant Staphylococcus aureus isolated. Specimen InformationSpecimen Source: NaresSpecimen Site: Left [place]rosse MethodistVitamin D 25 hydroxy [id number] 22:21:15* Test Item Value Reference Range Interpretation Comments Vitamin D, 25-hydroxy (test code = 1989-3) 11.5 ng/mL 30-150 L This assay reports the sum of 25-hydroxy vitamin D3 and 25-hydroxy vitamin D2. Reference range:0-17 years:Deficiency: less than 20ng/mLOptimum level: greater than or equal to 20 ng/mL.18 years and older:Deficiency: less than 20ng/mLInsufficiency: 20-29 ng/mLOptimum Level: 30-80 ng/mLThe assay reportable range is 3.4 155.9 ng/mL. Levels higher than 150 ng/mL may be associated with toxicity.If toxicity is clinically suspected and the reported result is >155.9 ng/mL,contact lab for alternative methods to obtain a definitive level.If separate quantitation of 25-hydroxy vitamin D3 and 25-hydroxy vitamin D2 is needed, please contact lab for alternative methods. Lab Interpretation (test code = 76455-1) Abnormal [facility] MethodistPrealbumin [id number] 21:14:19* Test Item Value Reference Range Interpretation Comments Prealbumin (test code = 6793-4) 13 mg/dL 16-32 L Lab Interpretation (test code = 61686-9) Abnormal [facility] MethodistHemoglobin [id number] 07:32:36* Test Item Value Reference Range Interpretation Comments Hemoglobin A1C (test code = 85543-7) 6.6 % 4-5.6 H HbA1c cutoffs for diagnosing diabetes:4.0% - 5.6% = normal5.7% - 6.4% = increased risk for diabetes (prediabetes)9>=6.5% = uikwpzrl2Zfohh for glycemic control (ADA 2016)< 7.0% Target for non adults with diabetes. More or less stringent targets may be appropriate for individual patients. <7.5% Target for Children and adolescents with type 1 diabetes. Lab Interpretation (test code = 71258-4) Abnormal [facility] MethodistMagnesium [id number] 06:33:43* Test Item Value Reference Range Interpretation Comments Magnesium (test code = 96569-3) 2.5 mg/dL 1.6-2.6 [facility]VENIPUNC NEED PHYS SKILL,DX OR [id number] 15:03:56Phan Parekh RN 10/28/2019 3:06 PMMidlineDate/Time: 10/28/2019 3:04 PMPerformed by: Phan Parekh, RNAuthorized by: Brittany King MD Consent: Consent obtained: Verbal and written Consent given by: Patient Risks discussed: arterial puncture, incorrect placement, nerve damage, bleeding, in fection, pneumothorax, superficial thrombus and deep vein thrombus Alternatives discussed: No treatment and delayed treatmentUniversal protocol: Procedure e xplained and questions answered to patient or proxy's satisfaction: yes Relev ant documents present and verified: yes Test results available and properly l abeled: yes Imaging studies available: yes Required blood products, implan ts, devices, and special equipment available: yes Site/side marked: yes Im mediately prior to procedure, a time out was called: yes Patient identity con firmed: Verbally with patient, arm band and hospital-assigned identification nu mberPre-procedure details: Hand hygiene: Hand hygiene performed prior to inser tion Sterile barrier technique: All elements of maximal sterile technique fol lowed Skin preparation: ChloraPrep Skin preparation agent: Skin preparation agent completely dried prior to procedure Anesthesia (see MAR for exact dosage s): Anesthesia method: Local infiltration Local anesthetic: Lidocaine 1% w/ o epi Route of administration: SubcutaneousMidline Line Placement Details: E xtremity Cirumference Upper (cm): 40 Extremity Circumference Forearm (cm): 30 Extremity Circumference Site: 38 Patient position: Flat 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: 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 Location: Right cephalic Device Type: Non-valved Catheter size: 4 Fr (18 gauge)Midline Characteristics: Cat heter Brand: BARd External Catheter Length (cm): 0 Internal Catheter Length (cm): 10 Total Catheter Length (cm): 10Procedure Details: Ultrasound guidan ce: yes Sterile ultrasound techniques: Sterile gel and sterile probe covers w ere used Number of attempts: 1 Number of PICC kits used during procedure: 1 Purpose of procedure: Midline Placement Patency/Placement: Flushes without difficulty, flushed with 10 mL normal saline, positive blood return and injecti on cap placed PICC placed utlizing ultrasound-guided Modified Seldinger Techniq ue: Yes (accellerated seldinger technique) Dressing/Securement: Dressing dry and intact, antimicrobial dressing dry and intact, catheter securement device a nd antimicrobial dressing applied Blood Loss Amount: Less than 20 mLPost-Proce dure Details: Post-procedure: Dressing applied Patient tolerance of procedur e: Tolerated well, no immediate complicationsLacrosse Methodpresbyterian española hospitalLactic acid level, SEPSIS - Now and repeat 2x every 3 kgyks8463-87-10 18:48:05* Test Item Value Reference Range Interpretation Comments Lactic acid (test code = 19955-4) 1.4 mmol/L 0.5-2.2 Torrey PaniaguaXR Tibia Fibula 2 Vw [id number] 12:52:32Hm Interface, Radiology Results Incoming - 10/27/2019 12:55 PM CSTStudy:XR TIBIA FIBULA 2 VW RIGHTHistory:possible infectionCOMPARISON:None.IMPRESSION:2 views of the right leg. No acute fracture or erosions. There is a focal opacity in the anterior soft tissues distally which is nonspecific. No soft tissue air.[id number] [facility] MethodisthCG qualitative, serum aswjen3389-82-33 12:18:33* Test Item Value Reference Range Interpretation Comments hCG qualitative, serum (test code = 2118-8) Negative [facility] MethodistProthrombin time with [id number] 12:15:14* Test Item Value Reference Range Interpretation Comments Prothrombin time (test code = 5902-2) 13.2 11.5- 14.5 sec INR (test code = 60714-7) 1.0 Th e International Normalized Ratio (INR) is a therapeutic monitoring tool for patients who are stable on oral anticoagulant therapy. An INR of 2.0-3.0 is suggested for deep vein thrombosis/pulmonary embolism. [facility] MethodistPartial thromboplastin time, ddkvyatkm2091-83-98 12:15:14* Test Item Value Reference Range Interpretation Comments PTT (test code = 90942-9) 40.1 23.0- 36.0 sec H PTT therapeutic range for unfractionated heparin is61.0-112.0 seconds which corresponds to Anti-Xa0.3-0.7 U/ml. Lab Interpretation (test code = 39670-4) Abnormal [facility] Akxzbkk9512-59-48 21:42:00* Test Item Value Reference Range Interpretation Comments Blood Culture (test code = 63769229) NO GROWTH AFTER 5 DAYS, FINAL REPORT [facility] Iexgkmz0868-30-53 21:42:00* Test Item Value Reference Range Interpretation Comments Blood Culture (test code = 24193602) NO GROWTH AFTER 5 DAYS, FINAL REPORT [facility] Cqqmkvl1153-39-54 21:42:00* Test Item Value Reference Range Interpretation Comments Blood Culture (test code = 79532409) NO GROWTH AFTER 72 HOURS [facility]linePlate[facility] Hgkhlkzh1856-27-62 07:34:00* Test Item Value Reference Range Interpretation Comments Platelet Estimate (test code = 56551-4) MODERATELY DECREASED [facility] ShorelinePlatelet Morphology Idnywrq0499-42-11 07:34:00* Test Item Value Reference Range Interpretation Comments Platelet Morphology Comment (test code = 00206-7) FEW LARGE NO EDTA PLT CLUMPS SEENCHRISTUS [facility] – ShorelinePlatelet Estimate 2019-09-05 07:34:00* Test Item Value Reference Range Interpretation Comments Platelet Estimate (test code = 13986-5) MODERATELY DECREASED [facility]linePlatelet Morphology Mtdthor3110-65-82 07:34:00* Test Item Value Reference Range Interpretation Comments Platelet Morphology Comment (test code = 55076-3) FEW LARGE NO EDTA PLT CLUMPS SEENCHRISTUS [facility] ShorelinePlatelet Estimate 2019-09-05 07:34:00* Test Item Value Reference Range Interpretation Comments Platelet Estimate (test code = 22908-4) MODERATELY DECREASED [facility]linePlatelet Morphology Nwdcsup9098-35-02 07:34:00* Test Item Value Reference Range Interpretation Comments Platelet Morphology Comment (test code = 52652-7) FEW LARGE NO EDTA PLT CLUMPS SEENCHRISTUS [facility] ShorelinePlatelet Estimate 2019-09-05 07:34:00* Test Item Value Reference Range Interpretation Comments Platelet Estimate (test code = 03406-5) MODERATELY DECREASED [facility]linePlatelet Morphology Uuqrkzc6936-86-57 07:34:00* Test Item Value Reference Range Interpretation Comments Platelet Morphology Comment (test code = 47059-8) FEW LARGE NO EDTA PLT CLUMPS SEENBaptist Medical Centerodium Level 2019-09-05 06:17:00* Test Item Value Reference Range Interpretation Comments Sodium Level (test code = 2951-2) 136 136-145 [facility]linePotassium Wazvt3058-26-45 06:17:00* Test Item Value Reference Range Interpretation Comments Potassium Level (test code = 2823-3) 4.2 3.5-5.1 [facility] ShorelineChloride Oclyr9330-74-05 06:17:00* Test Item Value Reference Range Interpretation Comments Chloride Level (test code = 2075-0) 106 98-107 [facility] ShorelineCarbon Dioxide Spijd1316-18-05 06:17:00* Test Item Value Reference Range Interpretation Comments Carbon Dioxide Level (test code = 2028-9) 18 22-29 L [facility] ShorelineAnion Ayz8638-55-69 06:17:00* Test Item Value Reference Range Interpretation Comments Anion Gap (test code = 02216-8) 16.2 8-16 H [facility] ShorelineBlood Urea Txbtccmv7878-16-88 06:17:00* Test Item Value Reference Range Interpretation Comments Blood Urea Nitrogen (test code = 3094-0) 10 - [facility] ShorelineCreatinine2019-10-11 06:17:00* Test Item Value Reference Range Interpretation Comments Creatinine (test code = 2160-0) 0.80 0.57-1.11 [facility] ShorelineBUN/Creatinine Lrdeh3011-22-87 06:17:00* Test Item Value Reference Range Interpretation Comments BUN/Creatinine Ratio (test code = 3097-3) 13 05-20 [facility] ShorelineEstimat Glomerular Filtration Rate 2019-09-05 06:17:00* Test Item Value Reference Range Interpretation Comments Estimat Glomerular Filtration Rate (test code = 662599679) > 60 >60 Ranges were taken from the National Kidney Disease Education Program and the [facility] Kid[facility] Foundation literature.Reference ranges:60 or greater: Hrstpg03-58 ( for 3 consecutive months): Chronic kidney disease 15 or less: Kidney failureCHRISTUS Spohn Hospital [facility] Christ[facility] – ShorelineGlucose Rghco3896-97-99 06:17:00* Test Item Value Reference Range Interpretation Comments Glucose Level (test code = IRM0472) 272 74-118 H [facility] ShorelineCalcium Xxapo3956-73-45 06:17:00* Test Item Value Reference Range Interpretation Comments Calcium Level (test code = 43647-5) 9.2 8.4-10.2 [facility] Centerodium Wtgio1297-36-89 06:17:00* Test Item Value Reference Range Interpretation Comments Sodium Level (test code = 2951-2) 136 136-145 [facility]linePotassium Jikvv0507-95-73 06:17:00* Test Item Value Reference Range Interpretation Comments Potassium Level (test code = 2823-3) 4.2 3.5-5.1 [facility] ShorelineChloride Bykea1116-84-73 06:17:00* Test Item Value Reference Range Interpretation Comments Chloride Level (test code = 2075-0) 106 98-107 [facility] ShorelineCarbon Dioxide Dihjz7782-65-58 06:17:00* Test Item Value Reference Range Interpretation Comments Carbon Dioxide Level (test code = 2028-9) 18 22-29 L [facility] ShorelineAnion Zhe4350-76-60 06:17:00* Test Item Value Reference Range Interpretation Comments Anion Gap (test code = 91649-2) 16.2 8-16 H [facility] ShorelineBlood Urea Jjbeiehm7231-23-12 06:17:00* Test Item Value Reference Range Interpretation Comments Blood Urea Nitrogen (test code = 3094-0) 10 7-26 [facility] ShorelineCreatinine2019-10-11 06:17:00* Test Item Value Reference Range Interpretation Comments Creatinine (test code = 2160-0) 0.80 0.57-1.11 [facility] ShorelineBUN/Creatinine Xehss9564-29-40 06:17:00* Test Item Value Reference Range Interpretation Comments BUN/Creatinine Ratio (test code = 3097-3) 13 6-25 [facility] ShorelineEstimat Glomerular Filtration Rate 2019-09-05 06:17:00* Test Item Value Reference Range Interpretation Comments Estimat Glomerular Filtration Rate (test code = 178835263) > 60 >60 Ranges were taken from the National Kidney Disease Education Program and the [facility] Kid[facility] Foundation literature.Reference ranges:60 or greater: Whaeuq45-45 ( for 3 consecutive months): Chronic kidney disease 15 or less: Kidney failureCHRISTUS Spohn [facility] – ShorelineGlucose Fzofz5561-95-89 06:17:00* Test Item Value Reference Range Interpretation Comments Glucose Level (test code = WJQ2010) 272 74-118 H [facility] ShorelineCalcium Hgxbe3948-45-97 06:17:00* Test Item Value Reference Range Interpretation Comments Calcium Level (test code = 08249-5) 9.2 8.4-10.2 [facility] Centerodium Tmyks4238-84-60 06:17:00* Test Item Value Reference Range Interpretation Comments Sodium Level (test code = 2951-2) 136 136-145 [facility] ShorelinePotassium Atbqm5721-73-64 06:17:00* Test Item Value Reference Range Interpretation Comments Potassium Level (test code = 2823-3) 4.2 3.5-5.1 [facility] ShorelineChloride Iojkc9958-14-30 06:17:00* Test Item Value Reference Range Interpretation Comments Chloride Level (test code = 2075-0) 106 98-107 [facility] ShorelineCarbon Dioxide Buhwi9994-50-87 06:17:00* Test Item Value Reference Range Interpretation Comments Carbon Dioxide Level (test code = 2028-9) 18 22-29 L [facility] ShorelineAnion Abj8624-22-40 06:17:00* Test Item Value Reference Range Interpretation Comments Anion Gap (test code = 15252-4) 16.2 8-16 H [facility] ShorelineBlood Urea Vwipedno8715-24-72 06:17:00* Test Item Value Reference Range Interpretation Comments Blood Urea Nitrogen (test code = 3094-0) 10 7-26 [facility] ShorelineCreatinine2019-10-11 06:17:00* Test Item Value Reference Range Interpretation Comments Creatinine (test code = 2160-0) 0.80 0.57-1.11 [facility] ShorelineBUN/Creatinine Mqzym5231-50-65 06:17:00* Test Item Value Reference Range Interpretation Comments BUN/Creatinine Ratio (test code = 3097-3) 13 6-25 [facility] ShorelineEstimat Glomerular Filtration Rate 2019-09-05 06:17:00* Test Item Value Reference Range Interpretation Comments Estimat Glomerular Filtration Rate (test code = 260178174) > 60 >60 Ranges were taken from the National Kidney Disease Education Program and the [facility] Kid[facility] Foundation literature.Reference ranges:60 or greater: Ookhfa20-85 ( for 3 consecutive months): Chronic kidney disease 15 or less: Kidney failureCHRISTUS Spohn [facility] – ShorelineGlucose Znxwg8556-96-12 06:17:00* Test Item Value Reference Range Interpretation Comments Glucose Level (test code = ZFW4614) 272 74-118 H [facility] ShorelineCalcium Fidzl1270-83-20 06:17:00* Test Item Value Reference Range Interpretation Comments Calcium Level (test code = 82371-1) 9.2 8.4-10.2 [facility] Centerodium Vpyet9023-64-06 06:17:00* Test Item Value Reference Range Interpretation Comments Sodium Level (test code = 2951-2) 136 136-145 [facility] ShorelinePotassium Zoevy3815-47-88 06:17:00* Test Item Value Reference Range Interpretation Comments Potassium Level (test code = 2823-3) 4.2 3.5-5.1 [facility] ShorelineChloride Zqfei8124-47-40 06:17:00* Test Item Value Reference Range Interpretation Comments Chloride Level (test code = 2075-0) 106 98-107 [facility] ShorelineCarbon Dioxide Svuaf0463-80-98 06:17:00* Test Item Value Reference Range Interpretation Comments Carbon Dioxide Level (test code = 2028-9) 18 22-29 L [facility] ShorelineAnion Ywa5277-32-91 06:17:00* Test Item Value Reference Range Interpretation Comments Anion Gap (test code = 01134-4) 16.2 8-16 H [facility] ShorelineBlood Urea Pnubwtnz6180-75-45 06:17:00* Test Item Value Reference Range Interpretation Comments Blood Urea Nitrogen (test code = 3094-0) 10 7-26 [facility] ShorelineCreatinine2019-10-11 06:17:00* Test Item Value Reference Range Interpretation Comments Creatinine (test code = 2160-0) 0.80 0.57-1.11 [facility] ShorelineBUN/Creatinine Desbh1273-80-25 06:17:00* Test Item Value Reference Range Interpretation Comments BUN/Creatinine Ratio (test code = 3097-3) 13 6-25 [facility] ShorelineEstimat Glomerular Filtration Rate 2019-09-05 06:17:00* Test Item Value Reference Range Interpretation Comments Estimat Glomerular Filtration Rate (test code = 602887438) > 60 >60 Ranges were taken from the National Kidney Disease Education Program and the [facility] Kid[facility] Foundation literature.Reference ranges:60 or greater: Cocpmr22-20 ( for 3 consecutive months): Chronic kidney disease 15 or less: Kidney failureCHRISTUS [facility]ohn [facility] – ShorelineGlucose Iqusj1422-54-58 06:17:00* Test Item Value Reference Range Interpretation Comments Glucose Level (test code = IWM1663) 272 74-118 H [facility] ShorelineCalcium Zctls5558-42-48 06:17:00* Test Item Value Reference Range Interpretation Comments Calcium Level (test code = 90366-5) 9.2 8.4-10.2 [facility] ShorelineWhite Blood Qiemv6957-76-25 06:15:00* Test Item Value Reference Range Interpretation Comments White Blood Count (test code = 6690-2) 12.38 4.8-10.8 H [facility] ShorelineRed Blood Aglzg1996-25-52 06:15:00* Test Item Value Reference Range Interpretation Comments Red Blood Count (test code = 789-8) 4.44 3.6-5.1 [facility] ShorelineHemoglobin2019-10-11 06:15:00* Test Item Value Reference Range Interpretation Comments Hemoglobin (test code = 89931-1) 12.4 12.0-16.0 [facility] ShorelineHematocrit2019-10-11 06:15:00* Test Item Value Reference Range Interpretation Comments Hematocrit (test code = 4544-3) 40.4 34.2-44.1 [facility] ShorelineMean Corpuscular Bgcsdc5173-91-78 06:15:00* Test Item Value Reference Range Interpretation Comments Mean Corpuscular Volume (test code = 787-2) 91.0 81-99 [facility] ShorelineMean Corpuscular Vdymmfnglk3245-79-59 06:15:00* Test Item Value Reference Range Interpretation Comments Mean Corpuscular Hemoglobin (test code = 785-6) 27.9 28-32 L [facility] ShorelineMe Corpuscular Hemoglobin Concent 2019-09-05 06:15:00* Test Item Value Reference Range Interpretation Comments Mean Corpuscular Hemoglobin Concent (test code = 786-4) 30.7 31-35 L [facility] ShorelineRed Cell Distribution Axxim5859-95-82 06:15:00* Test Item Value Reference Range Interpretation Comments Red Cell Distribution Width (test code = 87929-5) 14.7 11.7 -14.4 H [facility] ShorelinePlatelet Yuejh8402-80-76 06:15:00* Test Item Value Reference Range Interpretation Comments Platelet Count (test code = 777-3) 163 140-360 [facility] ShorelineNeutrophils (%) (Auto)2019-09-05 06:15:00 * Test Item Value Reference Range Interpretation Comments Neutrophils (%) (Auto) (test code = 07967-6) 83.4 38.7-80.0 H [facility] ShorelineLymphocytes (%) (Auto)2019-09-05 06:15:00 * Test Item Value Reference Range Interpretation Comments Lymphocytes (%) (Auto) (test code = 736-9) 10.7 18.0-39.1 L [facility] ShorelineMonocytes (%) (Auto)2019-09-05 06:15:00* Test Item Value Reference Range Interpretation Comments Monocytes (%) (Auto) (test code = 5905-5) 4.2 4.4-11.3 L [facility] ShorelineEosinophils (%) (Auto)2019-09-05 06:15:00 * Test Item Value Reference Range Interpretation Comments Eosinophils (%) (Auto) (test code = 713-8) 0.4 0.0-6.0 [facility] ShorelineBasophils (%) (Auto)2019-09-05 06:15:00* Test Item Value Reference Range Interpretation Comments Basophils (%) (Auto) (test code = 706-2) 0.2 0.0-1.0 [facility] ShorelineIM GRANULOCYTES %2019-09-05 06:15:00* Test Item Value Reference Range Interpretation Comments IM GRANULOCYTES % (test code = IM GRANULOCYTES %) 1.1 0.0- 1.0 H [facility] ShorelineNeutrophils # (Auto)2019-09-05 06:15:00* Test Item Value Reference Range Interpretation Comments Neutrophils # (Auto) (test code = 751-8) 10.3 2.1-6.9 H [facility] ShorelineLymphocytes # (Auto)2019-09-05 06:15:00* Test Item Value Reference Range Interpretation Comments Lymphocytes # (Auto) (test code = 27331-2) 1.3 1.0-3.2 [facility] ShorelineMonocytes # (Auto)2019-09-05 06:15:00* Test Item Value Reference Range Interpretation Comments Monocytes # (Auto) (test code = 742-7) 0.5 0.2-0.8 [facility]lineEosinophils # (Auto)2019-09-05 06:15:00* Test Item Value Reference Range Interpretation Comments Eosinophils # (Auto) (test code = 711-2) 0.1 0.0-0.4 [facility]lineBasophils # (Auto)2019-09-05 06:15:00* Test Item Value Reference Range Interpretation Comments Basophils # (Auto) (test code = 704-7) 0.0 0.0-0.1 [facility] ShorelineAbsolute Immature Granulocyte (auto 2019-09-05 06:15:00* Test Item Value Reference Range Interpretation Comments Absolute Immature Granulocyte (auto (liborio t code = Absolute Immature Granulocyte (auto) 0.13 0-0.1 H [facility] ShorelineWhite Blood Zywsg2767-31-30 06:15:00* Test Item Value Reference Range Interpretation Comments White Blood Count (test code = 6690-2) 12.38 4.8-10.8 H [facility] ShorelineRed Blood Zsamn8711-49-42 06:15:00* Test Item Value Reference Range Interpretation Comments Red Blood Count (test code = 789-8) 4.44 3.6-5.1 [facility] ShorelineHemoglobin2019-10-11 06:15:00* Test Item Value Reference Range Interpretation Comments Hemoglobin (test code = 69252-5) 12.4 12.0-16.0 [facility] ShorelineHematocrit2019-10-11 06:15:00* Test Item Value Reference Range Interpretation Comments Hematocrit (test code = 4544-3) 40.4 34.2-44.1 [facility] ShorelineMean Corpuscular Cltyee2565-46-85 06:15:00* Test Item Value Reference Range Interpretation Comments Mean Corpuscular Volume (test code = 787-2) 91.0 81-99 [facility] ShorelineMean Corpuscular Yujhtkayvf4512-03-46 06:15:00* Test Item Value Reference Range Interpretation Comments Mean Corpuscular Hemoglobin (test code = 785-6) 27.9 28-32 L [facility] ShorelineMean Corpuscular Hemoglobin Concent 2019-09-05 06:15:00* Test Item Value Reference Range Interpretation Comments Mean Corpuscular Hemoglobin Concent (test code = 786-4) 30.7 31-35 L [facility] ShorelineRed Cell Distribution Xjlrf5514-66-87 06:15:00* Test Item Value Reference Range Interpretation Comments Red Cell Distribution Width (test code = 16768-4) 14.7 11.7 -14.4 H [facility] ShorelinePlatelet Eaehr0804-04-57 06:15:00* Test Item Value Reference Range Interpretation Comments Platelet Count (test code = 777-3) 163 140-360 [facility] ShorelineNeutrophils (%) (Auto)2019-09-05 06:15:00 * Test Item Value Reference Range Interpretation Comments Neutrophils (%) (Auto) (test code = 23938-0) 83.4 38.7-80.0 H [facility] ShorelineLymphocytes (%) (Auto)2019-09-05 06:15:00 * Test Item Value Reference Range Interpretation Comments Lymphocytes (%) (Auto) (test code = 736-9) 10.7 18.0-39.1 [facility]line[facility]ocytes (%) (Auto)2019-09-05 06:15:00* Test Item Value Reference Range Interpretation Comments Monocytes (%) (Auto) (test code = 5905-5) 4.2 4.4-11.3 L [facility]lineEosinophils (%) (Auto)2019-09-05 06:15:00 * Test Item Value Reference Range Interpretation Comments Eosinophils (%) (Auto) (test code = 713-8) 0.4 0.0-6.0 [facility]lineBasophils (%) (Auto)2019-09-05 06:15:00* Test Item Value Reference Range Interpretation Comments Basophils (%) (Auto) (test code = 706-2) 0.2 0.0-1.0 [facility]lineIM GRANULOCYTES %2019-09-05 06:15:00* Test Item Value Reference Range Interpretation Comments IM GRANULOCYTES % (test code = IM GRANULOCYTES %) 1.1 0.0- 1.0 H [facility]lineNeutrophils # (Auto)2019-09-05 06:15:00* Test Item Value Reference Range Interpretation Comments Neutrophils # (Auto) (test code = 751-8) 10.3 2.1-6.9 H [facility]lineLymphocytes # (Auto)2019-09-05 06:15:00* Test Item Value Reference Range Interpretation Comments Lymphocytes # (Auto) (test code = 25203-5) 1.3 1.0-3.2 [facility]lineMonocytes # (Auto)2019-09-05 06:15:00* Test Item Value Reference Range Interpretation Comments Monocytes # (Auto) (test code = 742-7) 0.5 0.2-0.8 [facility]lineEosinophils # (Auto)2019-09-05 06:15:00* Test Item Value Reference Range Interpretation Comments Eosinophils # (Auto) (test code = 711-2) 0.1 0.0-0.4 [facility]Basophils # (Auto)2019-09-05 06:15:00* Test Item Value Reference Range Interpretation Comments Basophils # (Auto) (test code = 704-7) 0.0 0.0-0.1 [facility]lineAbsolute Immature Granulocyte (auto 2019-09-05 06:15:00* Test Item Value Reference Range Interpretation Comments Absolute Immature Granulocyte (auto (liborio t code = Absolute Immature Granulocyte (auto) 0.13 0-0.1 H [facility]lineWhite Blood Diyak8744-54-81 06:15:00* Test Item Value Reference Range Interpretation Comments White Blood Count (test code = 6690-2) 12.38 4.8-10.8 H [facility] ShorelineRed Blood Sxhja3086-36-49 06:15:00* Test Item Value Reference Range Interpretation Comments Red Blood Count (test code = 789-8) 4.44 3.6-5.1 [facility]lineHemoglobin2019-10-11 06:15:00* Test Item Value Reference Range Interpretation Comments Hemoglobin (test code = 43613-8) 12.4 12.0-16.0 [facility]lineHematocrit2019-10-11 06:15:00* Test Item Value Reference Range Interpretation Comments Hematocrit (test code = 4544-3) 40.4 34.2-44.1 [facility]lineMean Corpuscular Qyatny2861-18-43 06:15:00* Test Item Value Reference Range Interpretation Comments Mean Corpuscular Volume (test code = 787-2) 91.0 81-99 [facility]lineMean Corpuscular Lttvjbbwam3283-25-54 06:15:00* Test Item Value Reference Range Interpretation Comments Mean Corpuscular Hemoglobin (test code = 785-6) 27.9 28-32 L [facility] ShorelineMean Corpuscular Hemoglobin Concent 2019-09-05 06:15:00* Test Item Value Reference Range Interpretation Comments Mean Corpuscular Hemoglobin Concent (test code = 786-4) 30.7 31-35 L [facility]lineRed Cell Distribution Xakbi8947-60-54 06:15:00* Test Item Value Reference Range Interpretation Comments Red Cell Distribution Width (test code = 27118-5) 14.7 11.7 -14.4 H [facility] ShorelinePlatelet Dpnbj4307-01-87 06:15:00* Test Item Value Reference Range Interpretation Comments Platelet Count (test code = 777-3) 163 140-360 [facility]lineNeutrophils (%) (Auto)2019-09-05 06:15:00 * Test Item Value Reference Range Interpretation Comments Neutrophils (%) (Auto) (test code = 85211-7) 83.4 38.7-80.0 H [facility]lineLymphocytes (%) (Auto)2019-09-05 06:15:00 * Test Item Value Reference Range Interpretation Comments Lymphocytes (%) (Auto) (test code = 736-9) 10.7 18.0-39.1 L [facility]lineMonocytes (%) (Auto)2019-09-05 06:15:00* Test Item Value Reference Range Interpretation Comments Monocytes (%) (Auto) (test code = 5905-5) 4.2 4.4-11.3 L [facility]lineEosinophils (%) (Auto)2019-09-05 06:15:00 * Test Item Value Reference Range Interpretation Comments Eosinophils (%) (Auto) (test code = 713-8) 0.4 0.0-6.0 [facility]lineBasophils (%) (Auto)2019-09-05 06:15:00* Test Item Value Reference Range Interpretation Comments Basophils (%) (Auto) (test code = 706-2) 0.2 0.0-1.0 [facility]lineIM GRANULOCYTES %2019-09-05 06:15:00* Test Item Value Reference Range Interpretation Comments IM GRANULOCYTES % (test code = IM GRANULOCYTES %) 1.1 0.0- 1.0 H [facility]lineNeutrophils # (Auto)2019-09-05 06:15:00* Test Item Value Reference Range Interpretation Comments Neutrophils # (Auto) (test code = 751-8) 10.3 2.1-6.9 H [facility]lineLymphocytes # (Auto)2019-09-05 06:15:00* Test Item Value Reference Range Interpretation Comments Lymphocytes # (Auto) (test code = 25592-9) 1.3 1.0-3.2 [facility]lineMonocytes # (Auto)2019-09-05 06:15:00* Test Item Value Reference Range Interpretation Comments Monocytes # (Auto) (test code = 742-7) 0.5 0.2-0.8 [facility]lineEosinophils # (Auto)2019-09-05 06:15:00* Test Item Value Reference Range Interpretation Comments Eosinophils # (Auto) (test code = 711-2) 0.1 0.0-0.4 [facility]lineBasophils # (Auto)2019-09-05 06:15:00* Test Item Value Reference Range Interpretation Comments Basophils # (Auto) (test code = 704-7) 0.0 0.0-0.1 [facility]lineAbsolute Immature Granulocyte (auto 2019-09-05 06:15:00* Test Item Value Reference Range Interpretation Comments Absolute Immature Granulocyte (auto (liborio t code = Absolute Immature Granulocyte (auto) 0.13 0-0.1 H [facility]lineWhite Blood Ejaku6575-73-07 06:15:00* Test Item Value Reference Range Interpretation Comments White Blood Count (test code = 6690-2) 12.38 4.8-10.8 H [facility] ShorelineRed Blood Vsuzt0895-21-71 06:15:00* Test Item Value Reference Range Interpretation Comments Red Blood Count (test code = 789-8) 4.44 3.6-5.1 [facility] ShorelineHemoglobin2019-10-11 06:15:00* Test Item Value Reference Range Interpretation Comments Hemoglobin (test code = 42747-5) 12.4 12.0-16.0 [facility] ShorelineHematocrit2019-10-11 06:15:00* Test Item Value Reference Range Interpretation Comments Hematocrit (test code = 4544-3) 40.4 34.2-44.1 [facility]lineMean Corpuscular Oxjqjx5678-02-94 06:15:00* Test Item Value Reference Range Interpretation Comments Mean Corpuscular Volume (test code = 787-2) 91.0 81-99 [facility]lineMean Corpuscular Byvdtmsfcx3158-90-70 06:15:00* Test Item Value Reference Range Interpretation Comments Mean Corpuscular Hemoglobin (test code = 785-6) 27.9 28-32 L [facility] ShorelineMean Corpuscular Hemoglobin Concent 2019-09-05 06:15:00* Test Item Value Reference Range Interpretation Comments Mean Corpuscular Hemoglobin Concent (test code = 786-4) 30.7 31-35 L [facility] ShorelineRed Cell Distribution Yprtz1461-45-79 06:15:00* Test Item Value Reference Range Interpretation Comments Red Cell Distribution Width (test code = 91343-6) 14.7 11.7 -14.4 H [facility] ShorelinePlatelet Ekqwh7797-11-35 06:15:00* Test Item Value Reference Range Interpretation Comments Platelet Count (test code = 777-3) 163 140-360 [facility] ShorelineNeutrophils (%) (Auto)2019-09-05 06:15:00 * Test Item Value Reference Range Interpretation Comments Neutrophils (%) (Auto) (test code = 56301-1) 83.4 38.7-80.0 H [facility]lineLymphocytes (%) (Auto)2019-09-05 06:15:00 * Test Item Value Reference Range Interpretation Comments Lymphocytes (%) (Auto) (test code = 736-9) 10.7 18.0-39.1 L [facility]lineMonocytes (%) (Auto)2019-09-05 06:15:00* Test Item Value Reference Range Interpretation Comments Monocytes (%) (Auto) (test code = 5905-5) 4.2 4.4-11.3 L [facility]lineEosinophils (%) (Auto)2019-09-05 06:15:00 * Test Item Value Reference Range Interpretation Comments Eosinophils (%) (Auto) (test code = 713-8) 0.4 0.0-6.0 [facility]lineBasophils (%) (Auto)2019-09-05 06:15:00* Test Item Value Reference Range Interpretation Comments Basophils (%) (Auto) (test code = 706-2) 0.2 0.0-1.0 [facility]lineIM GRANULOCYTES %2019-09-05 06:15:00* Test Item Value Reference Range Interpretation Comments IM GRANULOCYTES % (test code = IM GRANULOCYTES %) 1.1 0.0- 1.0 H [facility]lineNeutrophils # (Auto)2019-09-05 06:15:00* Test Item Value Reference Range Interpretation Comments Neutrophils # (Auto) (test code = 751-8) 10.3 2.1-6.9 H [facility]lineLymphocytes # (Auto)2019-09-05 06:15:00* Test Item Value Reference Range Interpretation Comments Lymphocytes # (Auto) (test code = 78987-3) 1.3 1.0-3.2 [facility]lineMonocytes # (Auto)2019-09-05 06:15:00* Test Item Value Reference Range Interpretation Comments Monocytes # (Auto) (test code = 742-7) 0.5 0.2-0.8 [facility]lineEosinophils # (Auto)2019-09-05 06:15:00* Test Item Value Reference Range Interpretation Comments Eosinophils # (Auto) (test code = 711-2) 0.1 0.0-0.4 [facility]lineBasophils # (Auto)2019-09-05 06:15:00* Test Item Value Reference Range Interpretation Comments Basophils # (Auto) (test code = 704-7) 0.0 0.0-0.1 [facility]lineAbsolute Immature Granulocyte (auto 2019-09-05 06:15:00* Test Item Value Reference Range Interpretation Comments Absolute Immature Granulocyte (auto (liborio t code = Absolute Immature Granulocyte (auto) 0.13 0-0.1 H [facility] ShorelineBlood Zigaaqk7878-63-94 21:42:00* Test Item Value Reference Range Interpretation Comments Blood Culture (test code = 72493869) NO GROWTH AFTER 48 HOURS [facility] ShorelineTotal Isbdgyvcs7540-19-79 06:43:00* Test Item Value Reference Range Interpretation Comments Total Bilirubin (test code = 1975-2) 0.8 0.2-1.2 [facility] ShorelineAspartate Amino Transf (AST/SGOT) 2019-09-04 06:43:00* Test Item Value Reference Range Interpretation Comments Aspartate Amino Transf (AST/SGOT) (test code = Aspartate Amino Transf (AST/SGOT)) 13 5-34 [facility] ShorelineAlanine Aminotransferase (ALT/SGPT) 2019-09-04 06:43:00* Test Item Value Reference Range Interpretation Comments Alanine Aminotransferase (ALT/SGPT) (test code = 1742-6) 24 0-55 [facility]lineT[facility] hospital Nbiicqt2131-94-97 06:43:00* Test Item Value Reference Range Interpretation Comments Total Protein (test code = 2885-2) 6.0 6.5-8.1 L [facility] ShorelineAlbumin2019-10-10 06:43:00* Test Item Value Reference Range Interpretation Comments Albumin (test code = 1751-7) 2.5 3.5-5.0 L [facility] ShorelineGlobulin2019-10-10 06:43:00* Test Item Value Reference Range Interpretation Comments Globulin (test code = 94782-3) 3.5 2.3-3.5 [facility] ShorelineAlbumin/Globulin Ogyvc6397-19-66 06:43:00 * Test Item Value Reference Range Interpretation Comments Albumin/Globulin Ratio (test code = 1759-0) 0.7 0.8-2.0 L [facility] ShorelineAlkaline Anxroxswvba4635-58-07 06:43:00* Test Item Value Reference Range Interpretation Comments Alkaline Phosphatase (test code = 6768-6) 83 40-150 [facility] ShorelineTriglycerides Wbnle4440-12-98 06:43:00* Test Item Value Reference Range Interpretation Comments Triglycerides Level (test code = 2571-8) 96 0-149 [facility]lineCholesterol Pveql4676-40-36 06:43:00* Test Item Value Reference Range Interpretation Comments Cholesterol Level (test code = 2093-3) 156 0-199 Less than 200 mg/dL Low Owvq974 - 239 mg/dL Borderline Lqlm767 m g/dl and greater High Risk [facility] ShorelineLDL Fkfaosauwdb4282-52-60 06:43:00* Test Item Value Reference Range Interpretation Comments LDL Cholesterol (test code = 2089-1) 96 60-130 [facility] ShorelineHDL Pgfdrmgyecr6708-11-32 06:43:00* Test Item Value Reference Range Interpretation Comments HDL Cholesterol (test code = 2085-9) 41 40-60 [facility]lineCholesterol/HDL Tvmsj9974-69-44 06:43:00 * Test Item Value Reference Range Interpretation Comments Cholesterol/HDL Ratio (test code = 9830-1) 3.8 3.0-3.6 H [facility]lineTotal Zldelbztz2933-87-21 06:43:00* Test Item Value Reference Range Interpretation Comments Total Bilirubin (test code = 1975-2) 0.8 0.2-1.2 [facility] ShorelineAspartate Amino Transf (AST/SGOT) 2019-09-04 06:43:00* Test Item Value Reference Range Interpretation Comments Aspartate Amino Transf (AST/SGOT) (test code = Aspartate Amino Transf (AST/SGOT)) 13 5-34 [facility] ShorelineAlanine Aminotransferase (ALT/SGPT) 2019-09-04 06:43:00* Test Item Value Reference Range Interpretation Comments Alanine Aminotransferase (ALT/SGPT) (test code = 1742-6) 24 0-55 [facility]lineTotal Ntgpytr1239-05-11 06:43:00* Test Item Value Reference Range Interpretation Comments Total Protein (test code = 2885-2) 6.0 6.5-8.1 L [facility] ShorelineAlbumin2019-10-10 06:43:00* Test Item Value Reference Range Interpretation Comments Albumin (test code = 1751-7) 2.5 3.5-5.0 L [facility] ShorelineGlobulin2019-10-10 06:43:00* Test Item Value Reference Range Interpretation Comments Globulin (test code = 76184-9) 3.5 2.3-3.5 [facility] ShorelineAlbumin/Globulin Iyuaw5919-63-14 06:43:00 * Test Item Value Reference Range Interpretation Comments Albumin/Globulin Ratio (test code = 1759-0) 0.7 0.8-2.0 L [facility] ShorelineAlkaline Rfiuoeovjef9195-47-31 06:43:00* Test Item Value Reference Range Interpretation Comments Alkaline Phosphatase (test code = 6768-6) 83 40-150 [facility] ShorelineTriglycerides Daheg7918-51-20 06:43:00* Test Item Value Reference Range Interpretation Comments Triglycerides Level (test code = 2571-8) 96 0-149 [facility] ShorelineCholesterol Zldcz7576-50-19 06:43:00* Test Item Value Reference Range Interpretation Comments Cholesterol Level (test code = 2093-3) 156 0-199 Less than 200 mg/dL Low Qwki149 - 239 mg/dL Borderline Awmk988 m g/dl and greater High Risk [facility] ShorelineLDL Hnmsorwrpeo3480-62-84 06:43:00* Test Item Value Reference Range Interpretation Comments LDL Cholesterol (test code = 2089-1) 96 60-130 [facility] ShorelineHDL Tlswopalkln7755-02-89 06:43:00* Test Item Value Reference Range Interpretation Comments HDL Cholesterol (test code = 2085-9) 41 40-60 [facility]lineCholesterol/HDL Grpuv0026-11-36 06:43:00 * Test Item Value Reference Range Interpretation Comments Cholesterol/HDL Ratio (test code = 9830-1) 3.8 3.0-3.6 H [facility]lineTotal Pvldqibtx2626-21-19 06:43:00* Test Item Value Reference Range Interpretation Comments Total Bilirubin (test code = 1975-2) 0.8 0.2-1.2 [facility] ShorelineAspartate Amino Transf (AST/SGOT) 2019-09-04 06:43:00* Test Item Value Reference Range Interpretation Comments Aspartate Amino Transf (AST/SGOT) (test code = Aspartate Amino Transf (AST/SGOT)) 13 5-34 [facility] ShorelineAlanine Aminotransferase (ALT/SGPT) 2019-09-04 06:43:00* Test Item Value Reference Range Interpretation Comments Alanine Aminotransferase (ALT/SGPT) (test code = 1742-6) 24 0-55 [facility]lineTotal Mtkoxac5889-83-85 06:43:00* Test Item Value Reference Range Interpretation Comments Total Protein (test code = 2885-2) 6.0 6.5-8.1 L [facility] ShorelineAlbumin2019-10-10 06:43:00* Test Item Value Reference Range Interpretation Comments Albumin (test code = 1751-7) 2.5 3.5-5.0 L [facility] ShorelineGlobulin2019-10-10 06:43:00* Test Item Value Reference Range Interpretation Comments Globulin (test code = 10975-6) 3.5 2.3-3.5 [facility] ShorelineAlbumin/Globulin Dcygc4417-07-26 06:43:00 * Test Item Value Reference Range Interpretation Comments Albumin/Globulin Ratio (test code = 1759-0) 0.7 0.8-2.0 L [facility] ShorelineAlkaline Xptvlbdaojv0543-81-45 06:43:00* Test Item Value Reference Range Interpretation Comments Alkaline Phosphatase (test code = 6768-6) 83 40-150 [facility] ShorelineTriglycerides Zvyrw6433-84-63 06:43:00* Test Item Value Reference Range Interpretation Comments Triglycerides Level (test code = 2571-8) 96 0-149 [facility] ShorelineCholesterol Lunqv7111-08-70 06:43:00* Test Item Value Reference Range Interpretation Comments Cholesterol Level (test code = 2093-3) 156 0-199 Less than 200 mg/dL Low Qrcp661 - 239 mg/dL Borderline Sost476 m g/dl and greater High Risk [facility] ShorelineLDL Ynqumbtanhe5160-46-82 06:43:00* Test Item Value Reference Range Interpretation Comments LDL Cholesterol (test code = 2089-1) 96 60-130 [facility] ShorelineHDL Kabqrwlsooi7572-52-44 06:43:00* Test Item Value Reference Range Interpretation Comments HDL Cholesterol (test code = 2085-9) 41 40-60 [facility]lineCholesterol/HDL Lbyky3191-58-57 06:43:00 * Test Item Value Reference Range Interpretation Comments Cholesterol/HDL Ratio (test code = 9830-1) 3.8 3.0-3.6 H [facility]lineTotal Lxokickhv1612-20-92 06:43:00* Test Item Value Reference Range Interpretation Comments Total Bilirubin (test code = 1975-2) 0.8 0.2-1.2 [facility] ShorelineAspartate Amino Transf (AST/SGOT) 2019-09-04 06:43:00* Test Item Value Reference Range Interpretation Comments Aspartate Amino Transf (AST/SGOT) (test code = Aspartate Amino Transf (AST/SGOT)) 13 5-34 [facility] ShorelineAlanine Aminotransferase (ALT/SGPT) 2019-09-04 06:43:00* Test Item Value Reference Range Interpretation Comments Alanine Aminotransferase (ALT/SGPT) (test code = 1742-6) 24 0-55 [facility]lineTotal Qkqykcv1694-05-07 06:43:00* Test Item Value Reference Range Interpretation Comments Total Protein (test code = 2885-2) 6.0 6.5-8.1 L [facility] ShorelineAlbumin2019-10-10 06:43:00* Test Item Value Reference Range Interpretation Comments Albumin (test code = 1751-7) 2.5 3.5-5.0 L [facility] ShorelineGlobulin2019-10-10 06:43:00* Test Item Value Reference Range Interpretation Comments Globulin (test code = 15561-8) 3.5 2.3-3.5 [facility] ShorelineAlbumin/Globulin Suwxm3222-18-58 06:43:00 * Test Item Value Reference Range Interpretation Comments Albumin/Globulin Ratio (test code = 1759-0) 0.7 0.8-2.0 L [facility] ShorelineAlkaline Yidurajlqke9412-24-52 06:43:00* Test Item Value Reference Range Interpretation Comments Alkaline Phosphatase (test code = 6768-6) 83 40-150 [facility] ShorelineTriglycerides Zdpvl6277-81-86 06:43:00* Test Item Value Reference Range Interpretation Comments Triglycerides Level (test code = 2571-8) 96 0-149 [facility] ShorelineCholesterol Rzlgo7451-44-63 06:43:00* Test Item Value Reference Range Interpretation Comments Cholesterol Level (test code = 2093-3) 156 0-199 Less than 200 mg/dL Low Ztbb512 - 239 mg/dL Borderline Nyny800 m g/dl and greater High Risk [facility] ShorelineLDL Rvdsbrntatn4769-43-12 06:43:00* Test Item Value Reference Range Interpretation Comments LDL Cholesterol (test code = 2089-1) 96 60-130 [facility] ShorelineHDL Wsrfxcfajdo1825-97-87 06:43:00* Test Item Value Reference Range Interpretation Comments HDL Cholesterol (test code = 2085-9) 41 40-60 [facility]lineCholesterol/HDL Bydgs5066-15-59 06:43:00 * Test Item Value Reference Range Interpretation Comments Cholesterol/HDL Ratio (test code = 9830-1) 3.8 3.0-3.6 H [facility] ShorelineHemoglobin A1c Qrjshvz9565-99-78 06:40:00 * Test Item Value Reference Range Interpretation Comments Hemoglobin A1c Percent (test code = Hemoglobin A1c Percent) 6.2 4.0-7.0 [facility]lineHemoglobin A1c Aoolmjn3716-42-85 06:40:00 * Test Item Value Reference Range Interpretation Comments Hemoglobin A1c Percent (test code = Hemoglobin A1c Percent) 6.2 4.0-7.0 [facility]lineHemoglobin A1c Tyeyggt3540-16-22 06:40:00 * Test Item Value Reference Range Interpretation Comments Hemoglobin A1c Percent (test code = Hemoglobin A1c Percent) 6.2 4.0-7.0 [facility]lineHemoglobin A1c Denpset9043-60-64 06:40:00 * Test Item Value Reference Range Interpretation Comments Hemoglobin A1c Percent (test code = Hemoglobin A1c Percent) 6.2 4.0-7.0 [facility] ShorelineProthrombin Dpjb3240-93-22 07:23:00* Test Item Value Reference Range Interpretation Comments Prothrombin Time (test code = 5902-2) 13.4 11.9-14.5 [facility] ShorelineProthromb Time International Ratio 2019-09-03 07:23:00* Test Item Value Reference Range Interpretation Comments Prothromb Time International Ratio (test code = 6301-6) 0.97 Oral Anticoagulant Therapy INR Values:1. Low Intensity Therapy 1.5 - 2.02 . Moderate Intensity Therapy 2.0 - 3.03. High Intensity Therapy(1) 2.5 - 3. 54. High Intensity Therapy(2) 3.0 - 4.05. Panic Value INR > 5.0 [facility] ShorelineActivated Partial Thromboplast Time 2019-09-03 07:23:00* Test Item Value Reference Range Interpretation Comments Activated Partial Thromboplast Time (test code = 90014-2) 31.5 23.8-35.5 [facility] ShorelineProthrombin Oalm5181-41-58 07:23:00* Test Item Value Reference Range Interpretation Comments Prothrombin Time (test code = 5902-2) 13.4 11.9-14.5 [facility] ShorelineProthromb Time International Ratio 2019-09-03 07:23:00* Test Item Value Reference Range Interpretation Comments Prothromb Time International Ratio (test code = 6301-6) 0.97 Oral Anticoagulant Therapy INR Values:1. Low Intensity Therapy 1.5 - 2.02 . Moderate Intensity Therapy 2.0 - 3.03. High Intensity Therapy(1) 2.5 - 3. 54. High Intensity Therapy(2) 3.0 - 4.05. Panic Value INR > 5.0 [facility] Partial Thromboplast Time 2019-09-03 07:23:00* Test Item Value Reference Range Interpretation Comments Activated Partial Thromboplast Time (test code = 22116-7) 31.5 23.8-35.5 [facility]lineProthrombin Nfeq2975-18-53 07:23:00* Test Item Value Reference Range Interpretation Comments Prothrombin Time (test code = 5902-2) 13.4 11.9-14.5 [facility]lineProthromb Time International Ratio 2019-09-03 07:23:00* Test Item Value Reference Range Interpretation Comments Prothromb Time International Ratio (test code = 6301-6) 0.97 Oral Anticoagulant Therapy INR Values:1. Low Intensity Therapy 1.5 - 2.02 . Moderate Intensity Therapy 2.0 - 3.03. High Intensity Therapy(1) 2.5 - 3. 54. High Intensity Therapy(2) 3.0 - 4.05. Panic Value INR > 5.0 [facility]lineAct[facility] Partial Thromboplast Time 2019-09-03 07:23:00* Test Item Value Reference Range Interpretation Comments Activated Partial Thromboplast Time (test code = 93913-2) 31.5 23.8-35.5 [facility]lineProthrombin Qtdk4365-52-28 07:23:00* Test Item Value Reference Range Interpretation Comments Prothrombin Time (test code = 5902-2) 13.4 11.9-14.5 [facility]lineProthromb Time International Ratio 2019-09-03 07:23:00* Test Item Value Reference Range Interpretation Comments Prothromb Time International Ratio (test code = 6301-6) 0.97 Oral Anticoagulant Therapy INR Values:1. Low Intensity Therapy 1.5 - 2.02 . Moderate Intensity Therapy 2.0 - 3.03. High Intensity Therapy(1) 2.5 - 3. 54. High Intensity Therapy(2) 3.0 - 4.05. Panic Value INR > 5.0 [facility]line[facility] Partial Thromboplast Time 2019-09-03 07:23:00* Test Item Value Reference Range Interpretation Comments Activated Partial Thromboplast Time (test code = 48151-2) 31.5 23.8-35.5 [facility]lineCT ABD/PEL WITH FGWTETLW-RPTC1654-68-08 23:15:00 [place] [address] Patient Name: SHERRIE ABDULLAHI MR #: [id number] : 1980 Age/Sex: 39/F Req #: [id number] Adm Physician: Ordered by: UMBERTO DRIVER MD Report #: [id number] Location: [facility] Room/Bed: Procedure: 1008-001 0 HOPD/CT ABD/PEL WITH CONTRAST-HOPD Exam Date: 09/02/19 Exam Time: 2154 REPORT STATUS: Signed EXAM: CT Abdomen and Pelvis WITH contrast INDICATION: Abdominal p ain. Fever. COMPARISON: None. TECHNIQUE: Abdomen and pelvis were scanned uti lizing a multidetector helical scanner from the lung base to the pubic symphys is after administration of IV contrast. Coronal and sagittal reformations were obtained. Routine protocol was performed. Scan was performed when during port al venous phase. IV CONTRAST: 100 cc Isovue 370 ORAL CONTRAST: Water RADIATION DOSE: Total DLP: 871.91 mGy*cm Estimated effective dose: (DLP x 0.015 x size factor) mSv C OMPLICATIONS: None FINDINGS: Image degradation by beam hardening artifact. LINES and TUBES: None. LOWER THORAX: There is mild bibasilar atelect asis. HEPATOBILIARY: The liver is diffuse hypodense compared to the spleen, consistent with diffuse hepatic diffuse hepatic steatosis. No focal hepatic lesions. No biliary ductal dilation. GALLBLADDER:: Cystectomy clips. SPLEEN: No splenomegaly. PANCREAS: No focal masses or ductal dilatation. ADRENALS: No adrenal nodules. KIDNEYS/URETERS: Kidneys enhance symm etrically. No hydronephrosis. No cystic or solid mass lesions. No stones. GI TRACT: No abnormal distention, wall thickening, or evidence of bowel obs truction. Appendix is normal. PELVIC ORGANS/BLADDER: Tubal ligation c lips. LYMPH NODES: No lymphadenopathy. VESSELS: Unremarkable. PER ITONEUM / RETROPERITONEUM: No free air or fluid. BONES: There are degenerat aditya changes in the lumbar spine. SOFT TISSUES: Mild thickening of the periu mbilical subcutaneous soft tissues as seen on axial image 72 series 2 and sagi ttal image 83 without fluid collection. IMPRESSION: 1. Mild thickening of the para umbilical subcutaneous soft tissues without fluid collection repre sents focal inflammatory change/cellulitis. No intra-abdominal pelvic abnormal ity. Signed by: Dr. Anila Santiago M.D. on 09/02/2019 11:24 PM Dictated By: KANCHAN SANTIAGO MD, MD 23 Transcribed By: BOGDAN on 09/02/192323 COPY TO: UMBERTO SHEFFIELD MD CXR 2 VIEW - [id number] 23:11:00 [place] [address] Patient Name: SHERRIE ABDULLAHI MR #: [id number] : 1980 Age/Sex: 39/F Req #: [id number] Adm Physician: Ordered by: UMBERTO DRIVER MD Report #: [id number] Location: [facility] Room/Bed: Procedure: 1008-001 1 HOPD/CXR 2 VIEW - HOPD Exam Date: 09/02/19 Exam Ti me: 2206 REPORT STATUS: Signed E XAMINATION: Chest PA and lateral views INDICATION: Fever. Pain. [id number] COMPARISON: None FINDINGS: TUBES and LINES: None. LUNGS: Lungs are well inflated. Lungs are clear. There is no mignon dence of pneumonia or pulmonary edema. PLEURA: No pleural effusion or pn eumothorax. HEART AND MEDIASTINUM: Cardiac size is mildly enlarged. BONES AND SOFT TISSUES: No acute osseous lesion. Soft tissues are unremar kable. UPPER ABDOMEN: No free air under the diaphragm. IMPRESSION: No acute thoracic abnormality. Signed by: Dr. Anila Santiago M.D. on 09/02/2019 11:12 PM Dictated By: KANCHAN rock Signed By: KANCHAN SANTIAGO MD, MD on 09/02/192311 Transcribed By: BODGAN on 09/02/192311 COPY TO: UMBERTO DRIVER MD Lactic Acid Level 2019-09-02 21:58:00* Test Item Value Reference Range Interpretation Comments Lactic Acid Level (test code = Lactic Acid Level) 17.2 4.5- 19.8 [facility] ShorelineLactic Acid Luixc7416-22-45 21:58:00* Test Item Value Reference Range Interpretation Comments Lactic Acid Level (test code = Lactic Acid Level) 17.2 4.5- 19.8 [facility] ShorelineLactic Acid Bimfb6427-15-61 21:58:00* Test Item Value Reference Range Interpretation Comments Lactic Acid Level (test code = Lactic Acid Level) 17.2 4.5- 19.8 [facility]lineLactic Acid Mlrbe4989-83-82 21:58:00* Test Item Value Reference Range Interpretation Comments Lactic Acid Level (test code = Lactic Acid Level) 17.2 4.5- 19.8 [facility]lineCT ABDOMEN/PELVIS [id number] 05:12:00 [place] [address] Patient Name: SHERRIE ABDULLAHI MR #: [id number] DO B: 1980 Age/Sex: 38/F Req #: [id number] Adm Physici an: Ordered by: CRISTINA POWELL MD Report #: [id number] Location: Room/Bed: Procedure: [id number] CT/CT ABDOMEN/PELVIS W Exam Date: 08/30/18 Exam Time: 414 REPORT STATUS: Signed EXAM: CT Abdomen and Pelvis WITH contrast INDICATION: Abdo freddie pain COMPARISON: None. TECHNIQUE: Abdomen and pelvis were scanned util izing a multidetector helical scanner from the lung base to the pubic symphysi s after administration of IV contrast. Coronal and sagittal reformations were obtained. Routine protocol was performed. Scan was performed when during samia l venous phase. IV CONTRAST: 100 mL of Isovue-370 OR AL CONTRAST: Water RADIATION DOSE: Total DLP: 1353.18 mGy*cm Estimated effective dose: (DLP x 0.015 x size factor) mSv COMPLICATIONS: None FINDINGS: LINES and TUBES: None. LOWER THOR AX: Unremarkable HEPATOBILIARY: No focal hepatic lesions. No biliary ductal dilation. GALLBLADDER: There are stones in the gallbladder. SPLEEN: No splenomegaly. PANCREAS: No focal masses or ductal dilatation. ADRENALS: No adrenal nodules KIDNEYS/URETERS: Kidneys enhance symmetrically. No hydronephrosis. No cystic or solid mass lesions. No stones . GI TRACT: Segmental of small bowel wall thickening/edema best seen on ser ies 301, image 62 through 34 with evidence of mesenteric fluid/edema Appe ndix is normal. PELVIC ORGANS/BLADDER: Unremarkable. LYMPH NODES: No lymphadenopathy. VESSELS: Unremarkable. PERITONEUM / RETROPERITONEUM: No free air or fluid. BONES: Unremarkable. SOFT TISSUES: Unremarkable. IMPRESSION: 1. Findings are suspicious for focal enteritis in the appropriate clinical setting. Signed by: Dr. Dona Mitchell M.D. on 08/30/2018 5:14 AM Dictated By: DONA HELMS MD 3 Transcribed By: BOGDAN on 08/30/18513 COPY TO: CRISTINA POWELL MD Urine Color 2018-08-30 04:03:00* Test Item Value Reference Range Interpretation Comments Urine Color (test code = 5778-6) YELLOW YELLOW [facility] Qrezadd9489-79-47 04:03:00* Test Item Value Reference Range Interpretation Comments Urine Clarity (test code = 71580-2) CLEAR CLEAR [facility] Specific Jlwrwuu8312-31-67 04:03:00 * Test Item Value Reference Range Interpretation Comments Urine Specific [place] (test code = 5811-5) 1.030 1.010-1.02 5 H [facility]lineUrine [id number] 04:03:00* Test Item Value Reference Range Interpretation Comments Urine pH (test code = 18866-3) 6 5-[address] [facility] Leukocyte Lslkvzcm4767-92-77 04:03:00* Test Item Value Reference Range Interpretation Comments Urine Leukocyte Esterase (test code = 5799-2) NEGATIVE NEGATIVE [facility] Wzohbtv8879-13-76 04:03:00* Test Item Value Reference Range Interpretation Comments Urine Nitrite (test code = 14646-6) NEGATIVE NEGATIVE [facility] Pzdrrgp6533-93-55 04:03:00* Test Item Value Reference Range Interpretation Comments Urine Protein (test code = 5804-0) TRACE NEGATIVE H [facility]lineUrine Glucose (UA)2018-08-30 04:03:00* Test Item Value Reference Range Interpretation Comments Urine Glucose (UA) (test code = 2349-9) NEGATIVE NEGATIVE [facility]lineUrine Kjofjhh1090-98-75 04:03:00* Test Item Value Reference Range Interpretation Comments Urine Ketones (test code = 02277-2) NEGATIVE NEGATIVE [facility] Keejjapbzbaz8451-55-45 04:03:00* Test Item Value Reference Range Interpretation Comments Urine Urobilinogen (test code = 04992-3) 0.2 0.2-1 [facility]lineU[facility] Azpuitvdn9575-54-59 04:03:00* Test Item Value Reference Range Interpretation Comments Urine Bilirubin (test code = 1978-6) NEGATIVE NEGATIVE [facility] Nurty0515-20-92 04:03:00* Test Item Value Reference Range Interpretation Comments Urine Blood (test code = 65889-0) NEGATIVE NEGATIVE [facility]lineU[facility] KGW6121-79-06 04:03:00* Test Item Value Reference Range Interpretation Comments Urine WBC (test code = 5821-4) 0-5 0-5 [facility]lineU[facility] EOL9852-32-51 04:03:00* Test Item Value Reference Range Interpretation Comments Urine RBC (test code = 32703-0) 0-5 0-5 [facility]lineU[facility] Ltojkyaj8610-49-77 04:03:00* Test Item Value Reference Range Interpretation Comments Urine Bacteria (test code = 82831-5) FEW NONE [facility]lineU[facility] Epithelial Ziggz4952-73-54 04:03:00 * Test Item Value Reference Range Interpretation Comments Urine Epithelial Cells (test code = 34815-2) MODERATE NONE [facility]lineUrine Sfpht3380-52-52 04:03:00* Test Item Value Reference Range Interpretation Comments Urine Mucus (test code = 8247-9) FEW RARE H [facility]lineUrine Cuta2962-36-77 04:03:00* Test Item Value Reference Range Interpretation Comments Urine Test (test code = 2106-3) [facility] Dykdv5030-31-87 03:33:00* Test Item Value Reference Range Interpretation Comments Sodium Level (test code = 2951-2) 138 136-145 [facility]linePotassium Iscxm4010-67-95 03:33:00* Test Item Value Reference Range Interpretation Comments Potassium Level (test code = 2823-3) 3.9 3.5-5.1 [facility]lineChloride Xsanz6712-75-09 03:33:00* Test Item Value Reference Range Interpretation Comments Chloride Level (test code = 2075-0) 104 98-107 [facility] ShorelineCarbon Dioxide Hkhtj1748-89-11 03:33:00* Test Item Value Reference Range Interpretation Comments Carbon Dioxide Level (test code = 2028-9) 22 22-29 [facility] ShorelineAnion Yfj3120-35-03 03:33:00* Test Item Value Reference Range Interpretation Comments Anion Gap (test code = 95702-2) 15.9 8-16 [facility]lineBlood Urea Oisacmfo0438-95-40 03:33:00* Test Item Value Reference Range Interpretation Comments Blood Urea Nitrogen (test code = 3094-0) 14 7-26 [facility] ShorelineCreatinine2018-10-05 03:33:00* Test Item Value Reference Range Interpretation Comments Creatinine (test code = 2160-0) 0.92 0.57-1.11 [facility]lineBUN/Creatinine Ptget5982-37-21 03:33:00* Test Item Value Reference Range Interpretation Comments BUN/Creatinine Ratio (test code = 3097-3) 15 6- [facility] ShorelineEstimat Glomerular Filtration Rate 2018-08-30 03:33:00* Test Item Value Reference Range Interpretation Comments Estimat Glomerular Filtration Rate (test code = 052383272) 60- >60 Ranges were taken from the National Kidney Disease Education Program and the [facility] Kid[facility] Foundation literature.Reference ranges:60 or greater: Aefnms87-30 ( for 3 consecutive months): Chronic kidney disease 15 or less: Kidney failureCHRISTUS [facility]ohn [facility] – ShorelineGlucose Gzwwn9853-01-64 03:33:00* Test Item Value Reference Range Interpretation Comments Glucose Level (test code = OYZ9868) 144 74-118 H [facility] ShorelineCalcium Vcyxz9002-51-81 03:33:00* Test Item Value Reference Range Interpretation Comments Calcium Level (test code = 15062-8) 9.5 8.4-10.2 [facility] ShorelineTotal Wxvqpjdis6753-49-98 03:33:00* Test Item Value Reference Range Interpretation Comments Total Bilirubin (test code = 1975-2) 0.7 0.2-1.2 [facility] ShorelineAspartate Amino Transf (AST/SGOT) 2018-08-30 03:33:00* Test Item Value Reference Range Interpretation Comments Aspartate Amino Transf (AST/SGOT) (test code = Aspartate Amino Transf (AST/SGOT)) 18 5-34 [facility] ShorelineAlanine Aminotransferase (ALT/SGPT) 2018-08-30 03:33:00* Test Item Value Reference Range Interpretation Comments Alanine Aminotransferase (ALT/SGPT) (test code = 1742-6) 42 0-55 [facility] ShorelineTotal Faupoio2474-19-43 03:33:00* Test Item Value Reference Range Interpretation Comments Total Protein (test code = 2885-2) 8.0 6.5-8.1 [facility] ShorelineAlbumin2018-10-05 03:33:00* Test Item Value Reference Range Interpretation Comments Albumin (test code = 1751-7) 3.8 3.5-5.0 [facility] ShorelineGlobulin2018-10-05 03:33:00* Test Item Value Reference Range Interpretation Comments Globulin (test code = 66761-7) 4.2 2.3-3.5 H [facility] ShorelineAlbumin/Globulin Dendf9447-01-26 03:33:00 * Test Item Value Reference Range Interpretation Comments Albumin/Globulin Ratio (test code = 1759-0) 0.9 0.8-2.0 [facility] ShorelineAlkaline Kuratpsxyxh0093-77-97 03:33:00* Test Item Value Reference Range Interpretation Comments Alkaline Phosphatase (test code = 6768-6) 100 40-150 [facility] ShorelineAmylase Mzcms2964-32-55 03:33:00* Test Item Value Reference Range Interpretation Comments Amylase Level (test code = 1798-8) 62 25-125 [facility] ShorelineLipase2018-10-05 03:33:00* Test Item Value Reference Range Interpretation Comments Lipase (test code = 3040-3) 29 8-78 [facility] ShorelineWhite Blood Moeda6029-71-12 03:17:00* Test Item Value Reference Range Interpretation Comments White Blood Count (test code = 6690-2) 17.12 4.8-10.8 H [facility] ShorelineRed Blood Cpybm1016-10-56 03:17:00* Test Item Value Reference Range Interpretation Comments Red Blood Count (test code = 789-8) 5.16 3.6-5.1 H [facility] ShorelineHemoglobin2018-10-05 03:17:00* Test Item Value Reference Range Interpretation Comments Hemoglobin (test code = 47164-4) 14.6 12.0-16.0 [facility]lineHematocrit2018-10-05 03:17:00* Test Item Value Reference Range Interpretation Comments Hematocrit (test code = 4544-3) 45.1 34.2-44.1 H [facility] ShorelineMean Corpuscular Rpdbeb5303-19-64 03:17:00* Test Item Value Reference Range Interpretation Comments Mean Corpuscular Volume (test code = 787-2) 87.4 81-99 [facility]lineMean Corpuscular Vbrcdiwobk0610-53-37 03:17:00* Test Item Value Reference Range Interpretation Comments Mean Corpuscular Hemoglobin (test code = 785-6) 28.3 28-32 [facility] ShorelineMean Corpuscular Hemoglobin Concent 2018-08-30 03:17:00* Test Item Value Reference Range Interpretation Comments Mean Corpuscular Hemoglobin Concent (test code = 786-4) 32.4 31-35 [facility]lineRed Cell Distribution Ddumt6626-89-63 03:17:00* Test Item Value Reference Range Interpretation Comments Red Cell Distribution Width (test code = 60817-3) 14.1 11.7 -14.4 [facility] ShorelinePlatelet Sugyj5612-59-80 03:17:00* Test Item Value Reference Range Interpretation Comments Platelet Count (test code = 777-3) 326 140-360 [facility] ShorelineNeutrophils (%) (Auto)2018-08-30 03:17:00 * Test Item Value Reference Range Interpretation Comments Neutrophils (%) (Auto) (test code = 91520-9) 79.4 38.7-80.0 [facility] ShorelineLymphocytes (%) (Auto)2018-08-30 03:17:00 * Test Item Value Reference Range Interpretation Comments Lymphocytes (%) (Auto) (test code = 736-9) 15.0 18.0-39.1 L [facility] ShorelineMonocytes (%) (Auto)2018-08-30 03:17:00* Test Item Value Reference Range Interpretation Comments Monocytes (%) (Auto) (test code = 5905-5) 3.2 4.4-11.3 L [facility]lineEosinophils (%) (Auto)2018-08-30 03:17:00 * Test Item Value Reference Range Interpretation Comments Eosinophils (%) (Auto) (test code = 713-8) 1.7 0.0-6.0 [facility]lineBasophils (%) (Auto)2018-08-30 03:17:00* Test Item Value Reference Range Interpretation Comments Basophils (%) (Auto) (test code = 706-2) 0.3 0.0-1.0 [facility] ShorelineIM GRANULOCYTES %2018-08-30 03:17:00* Test Item Value Reference Range Interpretation Comments IM GRANULOCYTES % (test code = IM GRANULOCYTES %) 0.4 0.0- 1.0 [facility]lineNeutrophils # (Auto)2018-08-30 03:17:00* Test Item Value Reference Range Interpretation Comments Neutrophils # (Auto) (test code = 751-8) 13.6 2.1-6.9 H [facility] ShorelineLymphocytes # (Auto)2018-08-30 03:17:00* Test Item Value Reference Range Interpretation Comments Lymphocytes # (Auto) (test code = 31325-5) 2.6 1.0-3.2 [facility]lineMonocytes # (Auto)2018-08-30 03:17:00* Test Item Value Reference Range Interpretation Comments Monocytes # (Auto) (test code = 742-7) 0.5 0.2-0.8 [facility]lineEosinophils # (Auto)2018-08-30 03:17:00* Test Item Value Reference Range Interpretation Comments Eosinophils # (Auto) (test code = 711-2) 0.3 0.0-0.4 [facility]lineBasophils # (Auto)2018-08-30 03:17:00* Test Item Value Reference Range Interpretation Comments Basophils # (Auto) (test code = 704-7) 0.1 0.0-0.1 [facility] ShorelineAbsolute Immature Granulocyte (auto 2018-08-30 03:17:00* Test Item Value Reference Range Interpretation Comments Absolute Immature Granulocyte (auto (liborio t code = Absolute Immature Granulocyte (auto) 0.06 0-0.1 [facility]
[2020-04-28] MEDS ORDERED: IBUPROFEN 400 MG TAB PO ONE (18:45)
[2020-04-28] MEDS ORDERED: IBUPROFEN 400 MG TAB ONE (19:03)
--- NOTE | 2020-04-28 19:12 | NUR ---
Report to CR Luna
--- NOTE | 2020-04-28 19:19 | Emergency Department Note ---
History of Present Illnes History of Present Illness Chief Complaint: Extremity Trauma/Pain History of Present Illness This is a 39 year old female who present with acute onset of left knee pain that started this morning! Patient denies any previous history of knee injury or trauma. No falling. She lives in an apartment where she has to walk up three flights of stairs to her apartment, without an elevator. Pt states that she was walking up the stairs this morning, when she "felt a pop" below the left patella, and then had severe pain with stepping up and lifting up the left lower leg. The knee continued to "pop" with each step that she took. She went up to her apartment and rested today. Coming back down the stairs to work did not reproduce the pain. She has not taken anything for the pain and she has not a pplied ice. There has been no "giving out" of the left knee . Historian: Patient Arrival Mode: Car [employer] S[employer] Manager Required: No Onset (how long ago): hour(s) (12) Location: left knee Quality: "sharp, stabbing, tight" Radiation: non-radiation Severity: severe Onset quality: sudden Duration (how long): hour(s) (12) Timing of current episode: intermittent (walking on a flat surface is fine, but climbing steps or lifting the left leg creates pain in the left knee.) Progression: unchanged Chronicity: new Context: other (denies recent trauma, falling, travel, or hx of DVT) Relieving factors: none Exacerbating factors: none Associated symptoms: denies other symptoms (no numbness, tingling ) Treatments prior to arrival: none Risk factors: morbid obesity Past Medical/Family History Physician Review I have reviewed the patient's past medical and family history. Any updates have been documented here. Past Medical History Recent Fever: No Clinical Suspicion of Infectio: No New/Unexplained Change in Ment: No Past Medical History: None Past Surgical History: Cholecysctectomy, Tubal Ligation, , Hernia Repair, Orthopedic Implants Other Surgery: right finger has screws placed Social History Smoking Cessation: Current every day smoker Counseling Performed: Yes Alcohol Use: None Any Illegal Drug Use: No TB Exposure/Symptoms: No Physically hurt or threatened: No Family History Family history of heart diseas: No Other Last Tetanus: 2011 Any Pre-Existing Lines (PICC,: No Is patient up to date on immun: Yes Last Flu: UTD Last Pneumovax: none Review of Systems Review of Systems Constitutional: no symptoms EENTM: no symptoms Cardiovascular: no symptoms Respiratory: no symptoms Gastrointestinal: no symptoms Genitourinary: no symptoms Musculoskeletal: no symptoms Neurological: no symptoms Psychological: no symptoms Review of other systems All other systems reviewed and negative. Physical Exam Related Data Allergies: Coded Allergies: vancomycin (Verified Allergy, Intermediate, 04/28/20) Sulfa (Sulfonamide Antibiotics) (Verified Allergy, Unknown, 02/07/17) rifampin (Verified Allergy, Unknown, 02/07/17) Triage Vital Signs Vital Signs Date Time Temp Pulse Resp B/P (MAP) Pulse Ox O2 Delivery O2 Flow Rate FiO2 04/28/20 18:10 97.7 86 18 145/80 99 Vital signs reviewed: Yes Physical Exam CONSTITUTIONAL Constitutional: well-developed, well-nourished, morbidly obese HENT HENT: normocephalic, atraumatic, oropharynx clear/moist, nose normal HENT L/R: left ext ear normal, right ext ear normal EYES Eyes: PERRL, conjunctivae normal NECK Neck: ROM normal PULMONARY Pulmonary: effort normal, breath sounds normal CARDIOVASCULAR Cardiovascular: regular rhythm, heart sounds normal, capillary refill normal, normal rate GASTROINTESTINAL GENITOURINARY SKIN Skin: warm, dry MUSCULOSKELETAL Musculoskeletal: tenderness, other (ttp of suprapetellar area and patella tendon, with no crepitus or instability, neg anterior drawer sign; no warmth or erythema; ) NEUROLOGICAL Neurological: alert, oriented x 3, no gross motor or sensory deficits PSYCHOLOGICAL Psychological: mood/affect normal, judgement normal Results Imaging Imaging results reviewed: Yes Imaging Comments [place] [id number] Patient Name: SHERRIE ABDULLAHI MR #: [id number] : 1980 Age/Sex: 39/F Req #: [id number] Adm Physician: Ordered by: TROY SANDOVAL MD Report #: [id number] Location: [facility] Room/Bed: Procedure: [id number] HOPD/KNEE 3VW LT - HOPD Exam Date: 04/28/20 Exam Time: 181 REPORT STATUS: Signed Left knee 3 - views HISTORY: Pain status post trauma. COMPARISON: None FINDINGS: No displaced fracture. Osseous alignment is within normal limits. Mild degenerative changes of the medial compartment with small lateral marginal osteophytes. IMPRESSION: No acute radiographic abnormality. 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 Signed by: Dr. Anila Santiago M.D. on 04/28/2020 7:14 PM Dictated By: KANCHAN SANTIAGO MD, MD 13 Transcribed By: BOGDAN on 04/28/201913 COPY TO: TROY SANDOVAL MD~ Diagnostics Tests Diagnostic test(s) reviewed: Yes Critical Care Time Subsequent provider I assumed direction of critical care for this patient from another provider of my specialty. Assessment & Plan Assessment & Plan Final Impression: (1) PAIN IN LEFT KNEE (2) UNSPECIFIED ABNORMALITIES OF GAIT AND MOBILITY Assessment & Plan - Suspect ligamentous injury, possibly MCL, though no known trauma or injury other than morbid obesity. Knee is stable, and is not "giving out" on patinet. - RICE - Pt may want to consider a knee sleeve, for support. - Recommend Orthopedic follow-up. Dr. Rodriguez's contact info provided to patient, along with copy of xray - Ibuprofen 200 mg - 3 tabs together every 6 hours, with tramadol, prn breakthrough pain. 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, and no evidence of abuse of controlled substances) Depart Disposition: HOME, SELF-CARE Last Vital Signs Date Time Temp Pulse Resp B/P (MAP) Pulse Ox O2 Delivery O2 Flow Rate FiO2 04/28/20 18:10 97.7 86 18 145/80 99 Home Meds Active Scripts Tramadol Hcl (ULTRAM) 50 Mg Tablet, 1-2 TAB PO Q6H for pain, #20 TAB 0 Refills Prov:TROY SANDOVAL MD 04/28/20 Tramadol Hcl (ULTRAM) 50 Mg Tablet, 1-2 TAB PO Q6H PRN for pain, #20 TAB 0 Refills Prov:TROY SANDOVAL MD 04/28/20 Medications in the ED Ibuprofen 800 mg ONCE ONCE PO ; Start 04/28/20 at 18:45; Stop 04/28/20 at 18:49; Status DC Ibuprofen 800 mg STK-MED ONCE .ROUTE ; Start 04/28/20 at 19:03; Stop 04/28/20 at 18:57; Status DC TROY SANDOVAL MD Apr 28, 2020 19:19
[2020-04-28] MEDS ORDERED: ULTRAM50 MG PO ×3 (19:40→19:53)
== END 2020-04-28 20:01 | disposition home or self-care (01) ==
LOC: FSED 18:03
DX: M25.562 Pain in left knee (principal); R26.9 Unspecified abnormalities of gait and mobility; F17.210 Nicotine dependence, cigarettes, uncomplicated
CPT/HCPCS: 99283

== ENCOUNTER 2020-08-27 18:12 | Emergency (ER) | payer BC ==
[~2020-08-27] VITALS: Ht 170.2 cm; Wt 169.2 kg
[~2020-08-27 18:12] MED LIST changes: +ULTRAM50 MG PO
[2020-08-27] MEDS ORDERED: ONDANSETRON HCL INJ 2MG/ML 2ML 2 MG/ML VIAL IV STA (18:35)
[2020-08-27] MEDS ORDERED: KETOROLAC TROMETHAMINE 30 MG/ML VIAL IV STA (18:35)
[2020-08-27] MEDS ORDERED: SODIUM CHLORIDE 0.9% 1000ML 1,000 ML IV STA (18:35)
--- OUTSIDE RECORDS SUMMARY | 2020-08-27 18:46 | XMS REPORT | Clinical Summary ---
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) 10/27/2019 [facility] - Encounter 11/06/2019 after 08/27/2019 Medical History Medical History Date Comments Type 2 diabetes mellitus (HCC) Social History Date Tobacco Use Types Packs/Day Years Used Current Every Day Smoker Cigarettes Smokeless Tobacco: Never Used Comments: 1 pack per week Drinks/Week oz/Week Comments Alcohol Use rarely Yes Sex Assigned at Date Recorded Female 03/03/2020 4:03 AM CDT Last Filed Vital Signs Reading Time Taken Comments Vital Sign 135/79 01/06/2020 10:49 AM CRUSHER SCREEN REPAIRER Blood Pressure 87 01/06/2020 10:49 AM CRUSHER SCREEN REPAIRER Pulse 36.7 C (98.1 F) 01/06/2020 10:49 AM CRUSHER SCREEN REPAIRER Temperature 18 01/06/2020 10:49 AM CRUSHER SCREEN REPAIRER Respiratory Rate 98% 01/06/2020 10:49 AM CRUSHER SCREEN REPAIRER Oxygen Saturation - - Inhaled Oxygen Concentration 172 kg (380 lb) 01/04/2020 12:24 AM CRUSHER SCREEN REPAIRER Weight 170.2 cm (5' 7") 01/04/2020 12:24 AM CRUSHER SCREEN REPAIRER Height 59.52 01/04/2020 12:24 AM CRUSHER SCREEN REPAIRER Body Mass Index Plan of Treatment Health [...] nosis POC GLUCOSE Routine 01/06/2020 11:59 AM CRUSHER SCREEN REPAIRER ESTIMATED GFR Routine 01/06/2020 8:04 AM CRUSHER SCREEN REPAIRER BASIC METABOLIC PANEL Routine 01/06/2020 8:04 AM CRUSHER SCREEN REPAIRER POC GLUCOSE Routine 01/06/2020 5:33 AM CRUSHER SCREEN REPAIRER POC GLUCOSE Routine 01/05/2020 8:50 PM CRUSHER SCREEN REPAIRER POC GLUCOSE Routine 01/05/2020 4:18 PM CRUSHER SCREEN REPAIRER POC GLUCOSE Routine 01/05/2020 11:26 AM CRUSHER SCREEN REPAIRER VENIPUNC NEED PHYS Routine 01/05/2020 SKILL,DX OR RX 10:47 AM CRUSHER SCREEN REPAIRER POC GLUCOSE Routine 01/05/2020 5:39 AM CRUSHER SCREEN REPAIRER ESTIMATED GFR Routine 01/05/2020 5:10 AM CRUSHER SCREEN REPAIRER COMPREHENSIVE METABOLIC Routine 01/05/2020 PANEL 5:10 AM CRUSHER SCREEN REPAIRER HC COMPLETE BLD COUNT Routine 01/05/2020 W/AUTO DIFF 5:10 AM CRUSHER SCREEN REPAIRER POC GLUCOSE Routine 01/04/2020 8:10 PM CRUSHER SCREEN REPAIRER POC GLUCOSE Routine 01/04/2020 3:17 PM CRUSHER SCREEN REPAIRER POC GLUCOSE Routine 01/04/2020 11:17 AM CRUSHER SCREEN REPAIRER POC GLUCOSE Routine 01/04/2020 5:20 AM CRUSHER SCREEN REPAIRER ESTIMATED GFR Routine 01/04/2020 5:15 AM CRUSHER SCREEN REPAIRER COMPREHENSIVE METABOLIC Routine 01/04/2020 PANEL 5:15 AM CRUSHER SCREEN REPAIRER HC COMPLETE BLD COUNT Routine 01/04/2020 W/AUTO DIFF 5:15 AM CRUSHER SCREEN REPAIRER ESTIMATED GFR Routine 11/06/2019 5:06 AM CRUSHER SCREEN REPAIRER HC COMPLETE BLD COUNT Routine 11/06/2019 W/AUTO DIFF 5:06 AM CRUSHER SCREEN REPAIRER BASIC METABOLIC PANEL Routine 11/06/2019 5:06 AM CRUSHER SCREEN REPAIRER ESTIMATED GFR Routine 11/05/2019 5:00 AM CRUSHER SCREEN REPAIRER HC COMPLETE BLD COUNT Routine 11/05/2019 W/AUTO DIFF 5:00 AM CRUSHER SCREEN REPAIRER BASIC METABOLIC PANEL Routine 11/05/2019 5:00 AM CRUSHER SCREEN REPAIRER POC GLUCOSE Routine 11/04/2019 8:02 PM CRUSHER SCREEN REPAIRER MANUAL DIFFERENTIAL Routine 11/04/2019 6:09 AM CRUSHER SCREEN REPAIRER ESTIMATED GFR Routine 11/04/2019 6:09 AM CRUSHER SCREEN REPAIRER CBC WITH PLATELET AND Routine 11/04/2019 DIFFERENTIAL 6:09 AM CRUSHER SCREEN REPAIRER BASIC METABOLIC PANEL Routine 11/04/2019 6:09 AM CRUSHER SCREEN REPAIRER MANUAL DIFFERENTIAL Routine 11/03/2019 7:30 AM CRUSHER SCREEN REPAIRER ESTIMATED GFR Routine 11/03/2019 7:30 AM CRUSHER SCREEN REPAIRER CBC WITH PLATELET AND Routine 11/03/2019 DIFFERENTIAL 7:30 AM CRUSHER SCREEN REPAIRER BASIC METABOLIC PANEL Routine 11/03/2019 7:30 AM CRUSHER SCREEN REPAIRER POC GLUCOSE Routine 11/02/2019 8:13 PM CRUSHER SCREEN REPAIRER ANAEROBIC CULTURE Routine 11/02/2019 1:45 PM CRUSHER SCREEN REPAIRER GRAM STAIN Routine 11/02/2019 1:45 PM CRUSHER SCREEN REPAIRER AEROBIC CULTURE Routine 11/02/2019 1:45 PM CRUSHER SCREEN REPAIRER MANUAL DIFFERENTIAL Routine 11/02/2019 7:45 AM CRUSHER SCREEN REPAIRER ESTIMATED GFR Routine 11/02/2019 7:45 AM CRUSHER SCREEN REPAIRER CBC WITH PLATELET AND Routine 11/02/2019 DIFFERENTIAL 7:45 AM CRUSHER SCREEN REPAIRER BASIC METABOLIC PANEL Routine 11/02/2019 7:45 AM CRUSHER SCREEN REPAIRER MANUAL DIFFERENTIAL Routine 11/01/2019 5:42 AM CRUSHER SCREEN REPAIRER ESTIMATED GFR Routine 11/01/2019 5:42 AM CRUSHER SCREEN REPAIRER COMPREHENSIVE METABOLIC Routine 11/01/2019 PANEL 5:42 AM CRUSHER SCREEN REPAIRER CBC WITH PLATELET AND Routine 11/01/2019 DIFFERENTIAL 5:42 AM CRUSHER SCREEN REPAIRER MANUAL DIFFERENTIAL Routine 10/31/2019 5:15 AM CRUSHER SCREEN REPAIRER ESTIMATED GFR Routine 10/31/2019 5:15 AM CRUSHER SCREEN REPAIRER COMPREHENSIVE METABOLIC Routine 10/31/2019 PANEL 5:15 AM CRUSHER SCREEN REPAIRER CBC WITH PLATELET AND Routine 10/31/2019 DIFFERENTIAL 5:15 AM CRUSHER SCREEN REPAIRER PREALBUMIN LEVEL Routine 10/30/2019 4:57 PM CRUSHER SCREEN REPAIRER VITAMIN D 25 HYDROXY Routine 10/30/2019 LEVEL 4:57 PM CRUSHER SCREEN REPAIRER ESTIMATED GFR Routine 10/30/2019 5:20 AM CRUSHER SCREEN REPAIRER COMPREHENSIVE METABOLIC Routine 10/30/2019 PANEL 5:20 AM CRUSHER SCREEN REPAIRER HC COMPLETE BLD COUNT Routine 10/30/2019 W/AUTO DIFF 5:20 AM CRUSHER SCREEN REPAIRER HEMOGLOBIN A1C Routine 10/29/2019 5:11 AM CRUSHER SCREEN REPAIRER MAGNESIUM LEVEL Routine 10/29/2019 5:11 AM CRUSHER SCREEN REPAIRER ESTIMATED GFR Routine 10/29/2019 5:11 AM CRUSHER SCREEN REPAIRER COMPREHENSIVE METABOLIC Routine 10/29/2019 PANEL 5:11 AM CRUSHER SCREEN REPAIRER HC COMPLETE BLD COUNT Routine 10/29/2019 W/AUTO DIFF 5:11 AM CRUSHER SCREEN REPAIRER MRSA SCREEN CULTURE Routine 10/28/2019 5:32 PM CRUSHER SCREEN REPAIRER VENIPUNC NEED PHYS Routine 10/28/2019 SKILL,DX OR RX 3:03 PM CRUSHER SCREEN REPAIRER MANUAL DIFFERENTIAL Routine 10/28/2019 5:14 AM CRUSHER SCREEN REPAIRER ESTIMATED GFR Routine 10/28/2019 5:14 AM CRUSHER SCREEN REPAIRER COMPREHENSIVE METABOLIC Routine 10/28/2019 PANEL 5:14 AM CRUSHER SCREEN REPAIRER CBC WITH PLATELET AND Routine 10/28/2019 DIFFERENTIAL 5:14 AM CRUSHER SCREEN REPAIRER LACTIC ACID LEVEL, SEPSIS Timed 10/27/2019 - NOW AND REPEAT 2X EVERY 6:30 PM CRUSHER SCREEN REPAIRER 3 HOURS LACTIC ACID LEVEL, SEPSIS Timed 10/27/2019 - NOW AND REPEAT 2X EVERY 3:15 PM CRUSHER SCREEN REPAIRER 3 HOURS XR TIBIA FIBULA 2 VW STAT 10/27/2019 RIGHT 12:22 PM CRUSHER SCREEN REPAIRER ESTIMATED GFR STAT 10/27/2019 11:52 AM CRUSHER SCREEN REPAIRER HCG QUALITATIVE, SERUM STAT 10/27/2019 SCREEN 11:52 AM CRUSHER SCREEN REPAIRER PROTHROMBIN TIME WITH INR STAT 10/27/2019 11:52 AM CRUSHER SCREEN REPAIRER PARTIAL THROMBOPLASTIN STAT 10/27/2019 TIME (PTT) 11:52 AM CRUSHER SCREEN REPAIRER COMPREHENSIVE METABOLIC STAT 10/27/2019 PANEL 11:52 AM CRUSHER SCREEN REPAIRER HC COMPLETE BLD COUNT STAT 10/27/2019 W/AUTO DIFF 11:52 AM CRUSHER SCREEN REPAIRER LACTIC ACID LEVEL, SEPSIS STAT 10/27/2019 - NOW AND REPEAT 2X EVERY 11:52 AM CRUSHER SCREEN REPAIRER 3 HOURS BLOOD CULTURE, AEROBIC & Routine 10/27/2019 ANAEROBIC 11:51 AM CRUSHER SCREEN REPAIRER BLOOD CULTURE, AEROBIC & Routine 10/27/2019 ANAEROBIC 11:45 AM CRUSHER SCREEN REPAIRER after 08/27/2019 Results * POC glucose (01/06/2020 11:59 AM CRUSHER SCREEN REPAIRER) Only the most recent of 12 results within the time period is included. POC glucose 120 (H) 65 - 99 mg/dL [facility] Comment: ROBBY MENDOZA [employer] Name: [facility] Krystyna Device ID: [id number] Specimen Performing Organization Address City/[facility] P sera Number [facility] [address] [place] [address] 58 PATHOLOGY AND GENOMIC MEDICINE [address] * Estimated GFR (01/06/2020 8:04 AM CRUSHER SCREEN REPAIRER) Only the most recent of 14 results within the time period is included. Pathologist [facility] Estimated GFR >=90 mL/min/1.73 m2 [facility] Comment: ROBBY MENDOZA [facility] Interpretation G1 >=90 Normal or high G2 [...] 2014. Specimen Plasma specimen Performing Organization Address [facility] P sera Number [facility] [address] [place] [address] PATHOLOGY AND GENOMIC MEDICINE [address] * Basic metabolic panel (01/06/2020 8:04 AM CRUSHER SCREEN REPAIRER) Only the most recent of 6 results within the time period is included. Sodium 137 135 - 148 mEq/L [facility] Potassium 3.6 3.5 - 5.0 mEq/L [facility] Chloride 96 (L) 98 - 112 mEq/L [facility] CO2 30 24 - 31 mEq/L [facility] Anion gap 11@ANIO 7 - 15 mEq/L [facility] BUN 9 6 - 20 mg/dL [facility] Creatinine 0.60 0.50 - 0.90 mg/dL [facility] Glucose 174 (H) 65 - 99 mg/dL [facility] Calcium 9.6 8.3 - 10.2 mg/dL [facility] Specimen Plasma specimen Performing Organization Address City/[facility] P [place] [id number] [place], [place] [address] PATHOLOGY AND GENOMIC MEDICINE [facility] [address] [place] [address] [facility] * [facility] NEED PHYS SKILL,DX OR RX (01/05/2020 10:47 AM CRUSHER SCREEN REPAIRER) Narrative Performed At Phan Parekh RN 01/05/2020 10: 50 AM Midline Date/Time: 01/05/2020 10:30 AM Performed by: Phan Parekh RN Authorized by: Trina Stewart MD Consent: Consent obtained: Verbal and writte n Consent given by: Patient Risks discussed: arterial puncture, i ncorrect placement, nerve damage, bleeding, infection, pneumothorax, supe rficial thrombus and deep vein thrombus Alternatives discussed: Delayed rocky atment and no treatment [place] protocol: Procedure explained and questions ans wered [...] Flat Indication: Poor venous access and known retirement IV therapy Location: Left cephalic Device Type: Valved Catheter size: 4 Fr Line Characteristics: Catheter Brand: [employer] External Catheter Length (cm): 0 Internal Catheter [...] with platelet and differential (01/05/2020 5:10 AM CRUSHER SCREEN REPAIRER) Only the most recent of 13 results within the time period is included. WBC 6.64 4.50 - 11.00 k/uL [facility] RBC 3.80 (L) 4.20 - 5.50 m/uL [facility] HGB 10.6 (L) 12.0 - 16.0 g/dL [facility] HCT 33.2 (L) 37.0 - 47.0 % [facility] MCV 87.4 82.0 - 100.0 fL [facility] MCH 27.9 27.0 - 34.0 pg [facility] MCHC 31.9 31.0 - 37.0 g/dL [facility] RDW - SD 48.3 37.0 - 55.0 fL [facility] MPV 9.9 8.8 - 13.2 fL [facility] Platelet count 284 150 - 400 k/uL [facility] Nucleated RBC 0.00 /100 WBC [facility] Neutrophils 58.3 39.0 - 69.0 % [facility] Lymphocytes 31.2 25.0 - 45.0 % [facility] Monocytes 3.8 0.0 - 10.0 % [facility] Eosinophils 2.4 0.0 - 5.0 % [facility] Basophils 0.2 0.0 - 1.0 % [facility] Specimen Blood Performing Organization Address City/State/ZIP Code [place] [address] [place] [place], [place] [address] [facility] [address] [place] [address] [facility] * Comprehensive metabolic panel (01/05/2020 5:10 AM CRUSHER SCREEN REPAIRER) Only the most recent of 8 results within the time period is included. Sodium 137 135 - 148 mEq/L [facility] Potassium 3.1 (L) 3.5 - 5.0 mEq/L [facility] Chloride 97 (L) 98 - 112 mEq/L [facility] CO2 27 24 - 31 mEq/L [facility] Anion gap 13@ANIO 7 - 15 mEq/L [facility] BUN 10 6 - 20 mg/dL [facility] Creatinine 0.70 0.50 - 0.90 mg/dL [facility] Glucose 204 (H) 65 - 99 mg/dL [facility] Calcium 9.3 8.3 - 10.2 mg/dL [facility] Protein 6.6 6.3 - 8.3 g/dL [facility] Comment: [facility] Vrwuzsr6413.6-7.0 g/dL [facility] 1 amyx2341.4-7.6 g/dL 7 months-0drnn950.1-7.3 g/dL 1-2 cnaej132.6-7.5 g/dL >3 zqumo898.0-8.0 g/dL 18-9326684.3-8.3 g/dL Albumin 3.1 (L) 3.5 - 5.0 g/dL [facility] A/G ratio 0.9 0.7 - 3.8 [facility] Alkaline 84 35 - 104 U/L [facility] phosphatase [facility] AST 17 10 - 35 U/L [facility] ALT 26 5 - 50 U/L [facility] Total bilirubin 0.3 0.0 - 1.2 mg/dL [facility] Specimen Plasma specimen Performing Organization Address City/State/ZIP Code [place] [id number] [place] [place], [place] [address] [facility] [address] [place] [address] [facility] * Manual differential (11/04/2019 6:09 AM CRUSHER SCREEN REPAIRER) Only the most recent of 6 results within the time period is included. Manual PERFORMED [facility] differential [facility] Neutrophils 83.0 (H) 39.0 - 69.0 % [facility] Lymphocytes 12.0 (L) 25.0 - 45.0 % [facility] Monocytes 1.0 0.0 - 10.0 % [facility] Eosinophils 0.0 0.0 - 5.0 % [facility] Basophils 1.0 0.0 - 1.0 % [facility] Metamyelocytes 2 % [facility] Myelocytes 1 % [facility] Promyelocytes 0 % [facility] Platelet slide Kamilla adequate [facility] Anisocytosis Moderate [facility] Specimen Performing Organization Address City/[facility] P sera Number [facility] [place] [id number] [place], [place] [address] [facility] [address] [address] [place] [id number] [facility] * Aerobic culture (11/02/2019 1:45 PM CRUSHER SCREEN REPAIRER) Aerobic culture Acinetobacter species [facility] , [facility] identification/susceptibility to follow (A) Comment: Specimen Information [...] LUANN >16 mcg/mL: Resistant Acinetobacter species Gentamicin LUNAN 2 mcg/mL: Susceptible Acinetobacter species Imipenem LUANN <=0.25 mcg/mL: Susceptible Acinetobacter species Levofloxacin LUANN <=1 mcg/mL: Susceptible Acinetobacter species Meropenem LUANN <=0.125 mcg/mL: Susceptible Acinetobacter species Minocycline LUANN <=1 mcg/mL: Susceptible Acinetobacter species Tobramycin LUANN 1 mcg/mL: Susceptible Acinetobacter species Ampicillin/Sulbactam LUANN 2/1 mcg/mL: Susceptible Acinetobacter species Trimethoprim/Sulfamethoxazole LUANN <=0.5/9.5 mcg/mL: Susceptible Acinetobacter species Performing Organization Address City/State/ZIP Code P sera Number [facility] DEPARTMENT OF [address] [place] [address] PATHOLOGY AND GENOMIC MEDICINE [facility] [address] [place] [address] * Gram stain (11/02/2019 1:45 PM CRUSHER SCREEN REPAIRER) [facility] Gram stain No WBC's or organisms seen. [facility] isolate Comment: [facility] Specimen Information HOSPITAL Specimen Source: Abscess Specimen Site: Leg Specimen Abscess - Leg Performing Organization Address City/State/ZIP Code P sera Number [facility] DEPARTMENT OF [address] [place] [address] PATHOLOGY AND [facility] MED[facility] [address] [place] [address] * Anaerobic culture (11/02/2019 1:45 PM CRUSHER SCREEN REPAIRER) [facility] Anaerobic No anaerobic organisms [facility] culture isolate isolated. [facility] Comment: HOSPITAL Specimen Information Specimen Source: Abscess Specimen Site: Leg Specimen Abscess - Leg Performing Organization Address City/[facility]/ZIP [facility] P sera Number [facility] [place] [address] PATHOLOGY [facility] MEDICINE [facility] [address] [place] [address] * Vitamin D 25 hydroxy level (10/30/2019 4:57 PM CRUSHER SCREEN REPAIRER) [facility] Vitamin D, 11.5 (L) 30.0 - 150.0 ng/mL [facility] 25-hydroxy Comment: [facility] This assay reports the sum of HOSPITAL [...] alternative methods. Specimen Blood Performing Organization Address City/State/ZIP Code P sera Number [facility] DEPARTMENT OF [address] [place] [address] PATHOLOGY AND [facility] [address] [place] [address] HOSPITAL * Prealbumin level (10/30/2019 4:57 PM CRUSHER SCREEN REPAIRER) Prealbumin 13 (L) 16 - 32 mg/dL [facility] Specimen Serum Performing Organization Address [facility] P sera Number [facility] DEPARTMENT OF [address] [place] [address] PATHOLOGY AND [facility] MEDICINE [address] * Magnesium level (10/29/2019 5:11 AM CRUSHER SCREEN REPAIRER) [facility] Magnesium 2.5 1.6 - 2.6 mg/dL [facility] Specimen Plasma specimen Performing Organization Address City/[facility] P sera Number [facility] DEPARTMENT [address] [place] [address] PATHOLOGY AND [facility] MEDICINE [address] * Hemoglobin A1c (10/29/2019 5:11 AM CRUSHER SCREEN REPAIRER) [facility] Hemoglobin A1C 6.6 (H) 4.0 - 5.6 % [facility] Comment: [facility] HbA1c cutoffs for diagnosing [facility] diabetes: 4.0% - 5.6% = normal 5.7% - 6.4% = increased risk for diabetes (prediabetes)9 >=6.5% = diabetes9 Goals for glycemic control (ADA 2016) < 7.0% Target for non adults with diabetes. More or less stringent targets may be appropriate for individual patients. <7.5% Target for Children and adolescents with type 1 diabetes. Specimen Blood Performing Organization Address [facility] P sera Number [address] [place] [address] PATHOLOGY AND [facility] [address] * MRSA screen culture (10/28/2019 5:32 PM CRUSHER SCREEN REPAIRER) [facility] MRSA screen No Methicillin Resistant [facility] culture isolate Staphylococcus aureus [facility] isolated. HOSPITAL Comment: Specimen Information Specimen Source: Nares Specimen Site: Left Specimen Nares - Left Performing Organization Address City/[facility]/ZIP Code P sera Number [facility] DEPARTMENT OF [address] [place] [address] PATHOLOGY AND GENOMIC MEDICINE [address] * [facility] NEED PHYS SKILL,DX OR RX (10/28/2019 3:03 PM CRUSHER SCREEN REPAIRER) Narrative Performed At Phan Parekh RN 10/28/2019 3 :06 PM Midline Date/Time: 10/28/2019 3:04 PM Performed by: Phan Parekh RN Authorized by: Brittany King MD Consent: Consent obtained: Verbal and writte n Consent given by: Patient Risks discussed: arterial puncture, i ncorrect placement, nerve damage, bleeding, infection, pneumothorax, supe rficial thrombus and deep vein thrombus Alternatives discussed: No treatmen t and delayed treatment [place] protocol: Procedure explained and questions ans wered [...] Flat Indication: Poor venous access and known retirement IV therapy Location: Right cephalic Device Type: Non-valved Catheter size: 4 Fr (18 gauge) Midline Characteristics: Catheter Brand: [employer] External Catheter Length (cm): 0 Internal Catheter [...] 2x every 3 hours (10/27/2019 6:30 PM CRUSHER SCREEN REPAIRER) Only the most recent of 3 results within the time period is included. Lactic acid 1.4 0.5 - 2.2 mmol/L ELYSSA OLEARYIST REJI [facility] Specimen Plasma specimen Performing Organization Address [facility] P sera Number [address] [place], [place] [address] PATHOLOGY AND GENOMIC MEDICINE [facility] [place] [address] [facility] * XR Tibia Fibula 2 Vw Right (10/27/2019 12:22 PM CRUSHER SCREEN REPAIRER) Specimen Narrative Performed At Study:XR TIBIA FIBULA 2 VW RIGHT [facility] History:possible infection COMPARISON:None. IMPRESSION: 2 views of the right leg. No acute frac ture or erosions. There is a focal opacity in the anterior soft tissues di stally which is nonspecific. No soft tissue air. [id number] Procedure Note Hm Interface, Radiology Results Incoming - 10/27/2019 12:55 PM CRUSHER SCREEN REPAIRER Study:XR TIBIA FIBULA 2 VW RIGHT History:possible infection COMPARISON:None. IMPRESSION: 2 views of the right leg. No acute fract ure or erosions. There is a focal opacity in the anterior soft tissues distally which is nonspecific. No soft tissue air. [id number] Performing Organization Address [facility] P sera Number [facility] [address] [place] [address] * Partial thromboplastin time, activated (10/27/2019 11:52 AM CRUSHER SCREEN REPAIRER) PTT 40.1 (H) 23.0 - 36.0 sec [facility] Comment: ROBBY MENDOZA PTT therapeutic range for [facility] unfractionated heparin is 61.0-112.0 seconds which corresponds to Anti-Xa 0.3-0.7 U/ml. Specimen Blood Performing Organization Address City/[facility]/ZIP Code P sera Number [facility] DEPARTMENT [address] [place] [address] PATHOLOGY AND GENOMIC MEDICINE [facility] [address] * Prothrombin time with INR (10/27/2019 11:52 AM CRUSHER SCREEN REPAIRER) Pathologist [facility] Prothrombin 13.2 11.5 - 14.5 sec [facility] INR 1.0 [facility] Comment: [facility] CLEAR The International Normalized [facility] Ratio (INR) is a therapeutic monitoring tool for patients who are stable on oral anticoagulant therapy. An INR of 2.0-3.0 is suggested for deep vein thrombosis/pulmonary embolism. Specimen Blood Performing Organization Address [facility] P sera Number [facility] DEPARTMENT [address] [place] [address] PATHOLOGY AND [facility] [address] * hCG qualitative, serum screen (10/27/2019 11:52 AM CRUSHER SCREEN REPAIRER) [facility] hCG Negative [facility] Specimen Blood Performing Organization Address [facility] P sera Number [facility] DEPARTMENT [address] [place] [address] PATHOLOGY AND [facility] [address] * Blood culture, aerobic & anaerobic (10/27/2019 11:51 AM CRUSHER SCREEN REPAIRER) Only the most recent of 2 results within the time period is included. [facility] Blood culture No growth after 5 days of [facility] isolate incubation. [facility] Comment: HOSPITAL Specimen Information Specimen Source: Blood Specimen Site: Antecubital, right Specimen Blood - Antecubital, right Performing Organization Address [facility] P sera Number [facility] DEPARTMENT OF [address] [place] [address] PATHOLOGY AND [facility] [place] [address] HOSPITAL after 08/27/2019 Insurance Type Payer Benefit Subscriber ID Effective Phone Address Plan / Dates Group PPO BCBS [facility] [id number] 2013-P CHOICE resent PPO/[facility] [employer] [facility]PO [facility] [id number] 2013-P CHOICE resent PPO/[facility] [employer] PPO Advance Directives For more information, please contact: [phone] Patient 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
--- OUTSIDE RECORDS SUMMARY | 2020-08-27 18:46 | XMS REPORT | Continuity of Care Document ---
Author Author [email or web address] Organization [email or web address] Address Unknown Phone Unavailable Care Team Providers Care Physician Support Coordinator Name Role Phone [employer] Unavailable Un available Problems Problem Status Onset Date Classification Date Reported Comments Source AV CANAL DEFECT Active 09/16/2012 [facility] TRISOMY 21 TO BE PERFORMED BY DR MILNER Active 07/16/2012 [facility] Anemia Active 01/30/2014 [facility] Active 01/30/2014 [facility] Seroma Complicating A Procedure Active 01/30/2014 [facility] Medications Medication Details Route Status Patient Instructions Ordering Provider Order Date Source Embrace Blood Glucose Test In Vitro Strip ; Start Date: 10/02/2012; End Date: (Active) Active 10/02/2012 [facility] Lancets Miscellaneous ; Start Date: 10/02/2012; End Date: (Active) Active 10/02/2012 [facility] Levothyroxine Sodium 50 MCG Oral Tablet ; Start Date: 09/30/2012 (Active) Active 09/30/2012 [facility] GlyBURIDE 5 MG Oral Tablet ; S tart Date: 09/30/2012 (Active) Active 09/30/2012 [facility] Ferralet 90 90-1 MG Oral Tablet ; Start Date: 09/25/2012; End Date: (Active) Active 09/25/2012 [facility] GlyBURIDE 5 MG Oral Tablet ; S tart Date: 09/20/2012 (Active) Active 09/20/2012 [facility] Vitamins 0.8 MG Oral Tablet ; Start Date: 09/06/2012 (Active) Active 09/06/2012 [facility] Allergies, Adverse Reactions, Alerts Substance Category Reaction Severity Reaction type Status Date Reported Comments Source S[facility] drug allergy drug allergy Active [facility] Immunizations Immunization Date Given Site Status Last Updated Comments Source Fluvirin Intramuscular Injectable 09/06/2012 completed [facility] Results No Data Provided for This Section Pathology Reports No Data Provided for This Section Diagnostic Reports No Data Provided for This Section Consultation Notes No Data Provided for This Section Discharge Summaries No Data Provided for This Section History and Physicals No Data Provided for This Section Vital Signs Vital Sign Value Date Comments Source Height 170.18 cm 10/04/2012 [facility] Weight 157.273 10/04/2012 [facility] Height 170.18 cm 07/19/2012 [facility] Weight 156.364 07/19/2012 [facility] Encounters Location Location Details Encounter Type Encounter Number Reason For Visit Attending Provider ADM Date DC Date Status Source [facility] Outpatient [id number] TRISOMY 21 TO BE PERFORMED BY DR MILNER BEV DEL RIO 07/19/[address] [facility] AUDIT [id number] 09/06/2012 09/06/2012 [facility] AUDIT [id number] 09/06/2012 09/06/2012 [facility] EOB, Provi gerry: CRISTINA CAVAZOS, Status: Pen, Time: 1:45 PM [id number] 09/20/20 12 09/06/2012 [facility] AUDIT [id number] 09/20/2012 09/20/2012 [facility] AUDIT [id number] 09/23/2012 09/23/2012 [facility] AUDIT [id number] 09/25/2012 09/25/2012 [facility] AUDIT [id number] 09/25/2012 09/25/2012 [facility] AUDIT [id number] 09/30/2012 09/30/2012 [facility] BPP, Provi gerry: ROOM 5,PHARMACEUTICAL DETAILER, Status: Pen, Time: 2:45 PM [id number] 09/30/20 12 09/30/2012 [facility] AUDIT [id number] 10/01/2012 10/01/2012 [facility] AUDIT [id number] 10/02/2012 10/02/2012 [facility] BPP, Provi gerry: ROOM 5,PHARMACEUTICAL DETAILER, Status: Pen, Time: 1:45 PM [id number] 10/04/20 12 10/02/2012 [facility] EOB, Provi gerry: CRISTINA CAVAZOS, Status: Pen, Time: 2:30 PM [id number] 10/04/20 12 10/02/2012 [facility] AUDIT [id number] 10/04/2012 10/04/2012 [facility] AUDIT [id number] 10/06/2012 10/06/2012 [facility] BPP, Provi gerry: ROOM 2,PHARMACEUTICAL DETAILER, Status: Pen, Time: 12:45 PM [id number] 10/11/20 12 10/06/2012 [facility] EOB, Provi gerry: CRISTINA CAVAZOS, Status: Pen, Time: 1:15 PM [id number] 10/11/20 12 10/06/2012 [facility] AUDIT [id number] 10/11/2012 10/11/2012 [facility] AUDIT [id number] 11/14/2012 11/14/2012 [facility] AUDIT [id number] 12/02/2012 12/03/2012 [facility] POS, Provi gerry: CRISTINA CAVAZOS, Status: Pen, Time: 1:00 PM [id number] 12/12/19 13 12/03/2012 [facility] AUDIT [id number] 12/12/2012 12/13/2012 [facility] POS, Provi gerry: CRISTINA CAVAZOS, Status: Pen, Time: 1:15 PM [id number] 12/26/19 13 12/13/2012 [facility] AUDIT [id number] 04/09/2013 04/09/2013 [facility] AUDIT [id number] 06/06/2013 06/07/2013 [facility] AUDIT [id number] 01/30/2014 01/30/[address] [facility] Outpatient [id number] AV CANAL DEFECT VIOLETA MILNER Active [facility] Procedures No Data Provided for This Section Assessment and Plan No Data Provided for This Section Plan of Care Plan of Care Date Source [Q] HIV 1/2 EIA AB SCREEN 10/04/2012 Routine 06/07/2013 [facility] [Q] HIV 1/2 EIA AB SCREEN 10/04/2012 Routine 04/09/2013 [facility] [Q] HIV 1/2 EIA AB SCREEN 10/04/2012 Routine 12/13/2012 [facility] [Q] HIV 1/2 EIA AB SCREEN 10/04/2012 Routine 12/03/2012 [facility] [Q] HIV 1/2 EIA AB SCREEN 10/04/2012 Routine 11/14/2012 [facility] [Q] HIV 1/2 EIA AB SCREEN 10/04/2012 Routine 10/11/2012 [facility] [Q] HIV 1/2 EIA AB SCREEN 10/04/2012 Routine 10/06/2012 [facility] [QH] STREPTOCOCCUS, GROUP B CULTURE (Gen ital Strep Screen) 10/04/2012 Routine[Q] HIV 1/2 EIA AB SCREEN 10/04/2012 Routine 10/04/2012 [facility] Social History Social History Date Source Never A Smoker (Active) 01/30/2014 [facility] Family History Value Date S ource Family history of Diabetes Mellitus (V18 .0); (Active) Family history of Breast Cancer (V16.3); (Active) 01/30/2014 [facility] Family history of Diabetes Mellitus (V18 .0); (Active) Family history of Breast Cancer (V16.3); (Active) 06/07/2013 [facility] Family history of Diabetes Mellitus (V18 .0); (Active) Family history of Breast Cancer (V16.3); (Active) 04/09/2013 [facility] Family history of Diabetes Mellitus (V18 .0); (Active) Family history of Breast Cancer (V16.3); (Active) 12/13/2012 [facility] Family history of Diabetes Mellitus (V18 .0); (Active) Family history of Breast Cancer (V16.3); (Active) 12/03/2012 [facility] Family history of Diabetes Mellitus (V18 .0); (Active) Family history of Breast Cancer (V16.3); (Active) 11/14/2012 [facility] Advance Directives Order Name Results Value Date Source Advance Directives Advance Dir ectives No Advance Directives available. 01/30/2014 [facility] Advance Directives Advance Dir ectives No Advance Directives available. 06/07/2013 [facility] Advance Directives Advance Dir ectives No Advance Directives available. 04/09/2013 [facility] Advance Directives Advance Dir ectives No Advance Directives available. 12/13/2012 [facility] Advance Directives Advance Dir ectives No Advance Directives available. 12/03/2012 [facility] Advance Directives Advance Dir ectives No Advance Directives available. 11/14/2012 [facility] Advance Directives Advance Dir ectives No Advance Directives available. 10/11/2012 [facility] Advance Directives Advance Dir ectives No Advance Directives available. 10/06/2012 [facility] Advance Directives Advance Dir ectives No Advance Directives available. 10/04/2012 [facility] Advance Directives Advance Dir ectives No Advance Directives available. 10/02/2012 [facility] Advance Directives Advance Dir ectives No Advance Directives available. 10/01/2012 [facility] Advance Directives Advance Dir ectives No Advance Directives available. 09/30/2012 [facility] Advance Directives Advance Dir ectives No Advance Directives available. 09/25/2012 [facility] Advance Directives Advance Dir ectives No Advance Directives available. 09/25/2012 [facility] Advance Directives Advance Dir ectives No Advance Directives available. 09/23/2012 [facility] Advance Directives Advance Dir ectives No Advance Directives available. 09/20/2012 [facility] Advance Directives Advance Dir ectives No Advance Directives available. 09/06/2012 [facility] Advance Directives Advance Dir ectives No Advance Directives available. 09/06/2012 [facility] Functional Status No Data Provided for This Section
--- OUTSIDE RECORDS SUMMARY | 2020-08-27 18:47 | XMS REPORT | Continuity of Care Document ---
Author Author [facility] t Organization [facility] Address 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 Plant Operators Name Role Phone MD Amy SONI PCP Nila SANDOVAL Attphys Unavailable Pat CHIU, Bacekeeley Attphys Fernando CHIU, Charlie Soto Attphys Andres CHIU, Kimberlyn Dumont Attphys Shweta HANKINS, Danisha Attphys Unavailable UMBERTO DRIVER Attphys Unavailable Keeley POWELL Attphys Unavailable BRITTANY KING Admphys Unavailable Payers Payer Name Policy Type Policy Number Effective Date Expiration Date S rios [employer] [place] Ppo [id number] 2019 00:00:00 [facility] CHOICE PPO/FEDERAL EMPL [id number] 2013-Pre sentPPO [id number] 2013 00:00:00 Torrey Paniagua Problems Condition Name Condition Details Condition Category Status Onset Date Resolution Date Last Treatment Date Treating Clinician Comments Source Morbid obesity Morbid obesity Disease Active 2020-01-04 00:00:00 Torrey Paniagua Type 2 diabetes mellitus Type 2 diabetes mellitus Disease Acti ve 2020-01-04 00:00:[address] Cellulitis of right lower extremity Cellulitis of right lower ex tremity Disease Active 2020-01-03 00:00:00 [place] Type II diabetes mellitus with manifestations Type II diabetes mellitus with manifestations Disease Active 2019-11-06 00:00:00 Torrey Paniagua Cellulitis of right lower extremity Cellulitis of right lower ex tremity Disease Active 2019-10-27 00:00:00 [place] Hypokalemia Hypokalemia Disease Active 2019-10-27 00:00:00 Torrey Paniagua Hyponatremia Hyponatremia Disease Active 2019-10-27 00:00:00 Torrey Paniagua Morbid obesity Morbid obesity Disease Active 2019-10-27 00:00:00 [place] [facility] Dehydration Dehydration Problem Active 2015-10-06 00:00:00 [facility] AV CANAL DEFECT AV C ANAL DEFECT Active 09/16/[address] [facility] Diagnosis Active 2012-09-16 00:00:00 2012-10-04 0 9:17:00 Inez Myers TRISOMY 21 TO BE PERFORMED BY DR MILNER TRISOMY 21 TO BE PERFORMED BY DR MILNER Active 07/16/[address] [facility] Diagnosis Active 2012-07-16 00:00:00 2012-07-19 09:39:00 Inez Myers Abdominal pain Abdominal pain Problem Active [facility] Abscess of abdominal wall Abscess of abdominal wall Problem Active [facility] Anemia Anem ia Active 01/30/2014 [facility] 2014[facility]01[facility]30 [facility] Preg sparkle Active 01/30/2014 [facility] Problem Active 2014-01-30 23:17:54 [facility] Louis Seroma Complicating A Procedure Seroma Complicating A Procedure Active 01/30/2014 [facility] Problem Active 2014-01-30 23:17:54 [facility] Louis Allergies, Adverse Reactions, Alerts Allergy Name Allergy Type Status Severity Reaction(s) Onset Date Inacti ve Date Treating Clinician Comments Source Vancomycin Allergy to substance Active Moderate 2020-04-28 00:00:0 0 [facility] Sulfa (Sulfonamide Antibiotics) Propensity to adverse reactions to drug Active Hives 2020-01-03 00:00:00 Aydin Clineist Vancomycin Propensity to adverse reactions to drug Active Hives 2020-01-03 00:00:00 Torrey Clineis t Vancomycin Propensity to adverse reactions to drug Active Hives, Itching, Other (See Comments) 2019-10-28 00:00:00 Redness of skin (Facial, RUE, Back) Torrey Paniagua Rifampin Propensity to adverse reactions to drug Active Swelling 2019-10-27 00:00:00 Torrey Ramachandran t Sulfa (Sulfonamide Antibiotics) Propensity to adverse reactions to drug Active Unknown Reaction 2019-10-27 00:00:00 Torrey Paniagua Sulfa (Sulfonamide Antibiotics) Allergy to substance Active 2017-02-07 00:00:00 [facility] Rifampin Allergy to substance Active 2017-02-07 00:00:00 [facility] Sulfa Drugs Sulfa Drugs Active [facility] Family History Family Member Diagnosis Comments Start Date Stop Date Source Unknown Family Member Family History 2012-11-14 22:04:40 2 22:04:40 [facility] Social [facility] Social Habit Start Date Stop Date Quantity Comments Source History of tobacco use Cigarette Smoker Torrey Paniagua Tobacco use and exposure 2020-01-23 00:00:00 2020-01-23 00:00:00 Elizabethe r used Torrey Paniagua Alcohol intake 2020-01-23 00:00:00 2020-01-23 00:00:00 Current drinker of alcohol (finding) Torrey Paniagua Tobacco Comment 2019-10-31 00:00:00 2019-10-31 00:00:00 1 pack per we ek Torrey Paniagua Alcohol Comment 2019-10-31 00:00:00 2019-10-31 00:00:00 rarely Torrey Paniagua Social History 2014-01-30 23:17:54 2014-01-30 23:17:54 [facility] Sex Assigned At 1980 00:00:00 1980 00:00:00 Female [facility] Smoking Status Start Date Stop Date Source Current every day smoker 2020-01-23 00:00:00 Tobias Paniagua Medications Ordered Medication Name Filled Medication Name Start Date Stop Da te Current Medication? Ordering Clinician Indication Dosage Frequency Signature (SIG) Comments Components Source Tramadol Hcl (Ultram) 50 Mg TABLET Tramadol Hcl (Ultram) 50 Mg TABLET 2020-04-28 19:53:00 Yes Every 6 Hours for Pain [facility] hydroCHLOROthiazide (HYDRODIURIL) 25 MG tablet 2020-01-23 08:55: 06 Yes 25mg QD Take 25 mg by mouth daily. Ketan Paniagua metFORMIN (GLUCOPHAGE) 500 mg tablet 2020-01-23 08:55:06 Ye s 500mg Q.5D Take 500 mg by mouth 2 (two) times a day with meals. Torrey Paniagua gabapentin (NEURONTIN) 100 mg capsule 2020-01-23 08:55:06 Yes 100mg Q.5D Take 100 mg by mouth 2 (two) times a day. Torrey Paniagua ergocalciferol (VITAMIN D2) 50,000 unit capsule 2020-01-23 08:55 :06 Yes [id number] Q7D Take 50,000 Units by mouth once [...] unit capsule 2019-11-07 00:00:00 2019-12-07 23:59:00 No [id number] Q7D Take 1 capsule (50,000 Units total) [...] Pain. Max Daily Amount: 3 tablets Torrey Lugo Blood Glucose Test In Vitro Strip 2012-10-02 06:00:00 Yes ; Start Date: 10/02/2012; End Date: (Active) Inez [place] Lancets Miscellaneous 2012-10-02 06:00:00 Yes ; Start Date: 10/02/2012; End Date: (Active) Inez Myers Levothyroxine Sodium 50 MCG Oral Tablet 2012-09-30 06:00:00 Yes ; Start Date: 09/30/2012 (Active) Inez Myers GlyBURIDE 5 MG Oral Tablet 2012-09-30 06:00:00 Yes ; Start Date: 09/30/2012 (Active) Inez Myers Ferralet 90 90-1 MG Oral Tablet 2012-09-25 05:00:00 Yes ; Start Date: 09/25/2012; End Date: (Active) Inez Myers GlyBURIDE 5 MG Oral Tablet 2012-09-20 05:00:00 Yes ; Start Date: 09/20/2012 (Active) Inez Myers Vitamins 0.8 MG Oral Tablet 2012-09-06 05:00:00 Ye s ; Start Date: 09/06/2012 (Active) Inez piedra Acetaminophen With Codeine (Tylenol With Codeine #3 Ta blet) 1 Each TABLET Acetaminophen With Codeine (Tylenol With Codeine #3 Tablet) 1 Each TABLET 2017-02-07 00:00:00 No 300 Every 4 Hours as nee ded for Pain [facility] Levofloxacin (Levaquin) 500 Mg TABLET Levofloxacin (Levaquin) 50 0 Mg TABLET 2017-02-07 00:00:00 No 500 Daily [facility] Clindamycin Hcl Clindamycin Hcl 2017-01-16 00:00:00 No 300 Every 8 Hours [facility] Acetaminophen (Tylenol Extra Strength) 500 Mg TABLET A cetaminophen (Tylenol Extra Strength) 500 Mg TABLET 2015-10-06 00:00:00 No 500 As Needed for Migraine [facility] Cephalexin Monohydrate (Keflex) 500 Mg CAPSULE Cephale levar Monohydrate (Keflex) 500 Mg CAPSULE 2015-10-06 00:00:00 No 500 Every 6 H ours [facility] Hydrocodone Bit/Acetaminophen ([place] 7.5-325 Tablet) 1 Each TABLET Hydrocodone Bit/Acetaminophen ([place] 7.5-325 Tablet) 1 Each TABLET 2015-09-26 1 00:00:00 No 1 Every 4 Hours as needed for Pain [facility] Vital Signs Vital Name Observation Time Observation Value Comments Source Weight 2020-04-28 18:10:00 373 [lb_av] [facility] BMI (Body Mass Index) 2020-04-28 18:10:00 58.4 kg/m2 [facility] Systolic blood pressure 2020-01-06 10:49:14 135 mm[Hg] [place] [facility] Diastolic blood pressure 2020-01-06 10:49:14 79 mm[Hg] [place] [facility] Heart rate 2020-01-06 10:49:14 87 /min [place] [facility] Body temperature 2020-01-06 10:49:14 36.72 U[place] [facility] Respiratory rate 2020-01-06 10:49:14 18 /min [place] Oxygen saturation in Arterial blood by Pulse oximetry 01-06 10:49:14 98 /min [place] [facility] Body height 2020-01-04 00:24:00 170.2 cm [place] [facility] Body weight 2020-01-04 00:24:00 172.367 kg [place] [facility] BMI 2020-01-04 00:24:00 59.52 kg/m2 [place] [facility] Body Temperature 2020-01-03 21:33:00 99.0 [degF] [facility] Height 2012-10-04 15:28:00 170.18 cm [facility] Weight 2012-10-04 15:28:00 [facility] Height 2012-07-19 14:46:00 170[facility]18 [facility] 2012-07-19 14:46:00 [facility] Procedures Procedure Date / Time Performed Performing Clinician Sour e POC GLUCOSE 2020-01-06 11:59:00 Brittany King BASIC METABOLIC PANEL 2020-01-06 08:04:00 Brittany King ESTIMATED GFR 2020-01-06 08:04:00 Brittany King POC GLUCOSE 2020-01-06 05:33:00 Brittany King POC GLUCOSE 2020-01-05 20:50:00 Brittany King POC GLUCOSE 2020-01-05 16:18:00 Brittany King POC GLUCOSE 2020-01-05 11:26:00 Santi Kingrenato Guerra [place] VENIPUNC NEED PHYS SKILL,DX OR RX 2020-01-05 10:47:51 Phan Parekh [facility] POC GLUCOSE 2020-01-05 05:39:00 Brittany King [place] [facility] HC COMPLETE BLD COUNT W/AUTO DIFF 2020-01-05 05:10:00 Vijay Lee [facility] COMPREHENSIVE METABOLIC PANEL 2020-01-05 05:10:00 Kathy Lee [facility] ESTIMATED GFR 2020-01-05 05:10:00 Kathy Lee on [facility] POC GLUCOSE 2020-01-04 20:10:00 Brittany King [facility] POC GLUCOSE 2020-01-04 15:17:00 Brittany King [place] POC GLUCOSE 2020-01-04 11:17:00 Brittany King [place] POC GLUCOSE 2020-01-04 05:20:00 Brittany King [facility] HC COMPLETE BLD COUNT W/AUTO DIFF 2020-01-04 05:15:00 Vijay Lee [facility] COMPREHENSIVE METABOLIC PANEL 2020-01-04 05:15:00 Kathy Lee [facility] ESTIMATED GFR 2020-01-04 05:15:00 [place] BASIC METABOLIC PANEL 2019-11-06 05:06:00 Kathy Lee [facility] HC COMPLETE BLD COUNT W/AUTO DIFF 2019-11-06 05:06:00 Vijay Lee [facility] ESTIMATED GFR 2019-11-06 05:06:00 [place] BASIC METABOLIC PANEL 2019-11-05 05:00:00 Kathy Lee [facility] HC COMPLETE BLD COUNT W/AUTO DIFF 2019-11-05 05:00:00 Vijay Lee [facility] ESTIMATED GFR 2019-11-05 05:00:00 [place] POC GLUCOSE 2019-11-04 20:02:00 Brittany King [facility] BASIC METABOLIC PANEL 2019-11-04 06:09:00 Kathy Lee [facility] CBC WITH PLATELET AND DIFFERENTIAL 2019-11-04 06:09:00 Jack Lee [facility] ESTIMATED GFR 2019-11-04 06:09:00 [place] MANUAL DIFFERENTIAL 2019-11-04 06:09:00 Kathy Lee [facility] BASIC METABOLIC PANEL 2019-11-03 07:30:00 Kathy Lee [facility] CBC WITH PLATELET AND DIFFERENTIAL 2019-11-03 07:30:00 Jack Lee [facility] ESTIMATED GFR 2019-11-03 07:30:00 Kathy [place] MANUAL DIFFERENTIAL 2019-11-03 07:30:00 Kathy Lee [facility] POC GLUCOSE 2019-11-02 20:13:00 Brittany King [facility] AEROBIC CULTURE 2019-11-02 13:45:00 Brittany King [facility] GRAM STAIN 2019-11-02 13:45:00 Brittany King [facility] ANAEROBIC CULTURE 2019-11-02 13:45:00 Brittany King [facility] BASIC METABOLIC PANEL 2019-11-02 07:45:00 Kathy Lee Gn[facility] CBC WITH PLATELET AND DIFFERENTIAL 2019-11-02 07:45:00 Jack Lee [facility] ESTIMATED GFR 2019-11-02 07:45:00 Kathy [place] MANUAL DIFFERENTIAL 2019-11-02 07:45:00 Kathy Lee [facility] CBC WITH PLATELET AND DIFFERENTIAL 2019-11-01 05:42:00 Jack Lee [facility] COMPREHENSIVE METABOLIC PANEL 2019-11-01 05:42:00 Kathy Lee Gn[facility] ESTIMATED GFR 2019-11-01 05:42:00 Kathy [place] MANUAL DIFFERENTIAL 2019-11-01 05:42:00 Kathy Lee [facility] CBC WITH PLATELET AND DIFFERENTIAL 2019-10-31 05:15:00 Jack Lee Gnostic[facility] COMPREHENSIVE METABOLIC PANEL 2019-10-31 05:15:00 Kathy Lee [facility] ESTIMATED GFR 2019-10-31 05:15:00 [place] MANUAL DIFFERENTIAL 2019-10-31 05:15:00 Kathy Lee [facility] VITAMIN D 25 HYDROXY LEVEL 2019-10-30 16:57:00 Jonelle Thornton [place] [facility] PREALBUMIN LEVEL 2019-10-30 16:57:00 Jonelle Thornton [place] [facility] HC COMPLETE BLD COUNT W/AUTO DIFF 2019-10-30 05:20:00 Vijay Lee [facility] COMPREHENSIVE METABOLIC PANEL 2019-10-30 05:20:00 Kathy Lee [facility] ESTIMATED GFR 2019-10-30 05:20:00 Kathy [place] on [facility] HC COMPLETE BLD COUNT W/AUTO DIFF 2019-10-29 05:11:00 Vijay Lee [facility] COMPREHENSIVE METABOLIC PANEL 2019-10-29 05:11:00 Kathy Lee [facility] ESTIMATED GFR 2019-10-29 05:11:00 Kathy [place] MAGNESIUM LEVEL 2019-10-29 05:11:00 Kathy [place] HEMOGLOBIN A1C 2019-10-29 05:11:00 Brittany King [facility] MRSA SCREEN CULTURE 2019-10-28 17:32:00 Burke Dickson on [facility] VENIPUNC NEED PHYS SKILL,DX OR RX 2019-10-28 15:03:56 Phan Parekh [facility] CBC WITH PLATELET AND DIFFERENTIAL 2019-10-28 05:14:00 Jack Lee [facility] COMPREHENSIVE METABOLIC PANEL 2019-10-28 05:14:00 Kathy Lee [facility] ESTIMATED GFR 2019-10-28 05:14:00 Kathy [place] MANUAL DIFFERENTIAL 2019-10-28 05:14:00 Kathy Lee [facility] LACTIC ACID LEVEL, SEPSIS - NOW AND REPEAT 2X EVERY 3 HOURS 2019-10-27 18:30:00 Brittany King LACTIC ACID LEVEL, SEPSIS - NOW AND REPEAT 2X EVERY 3 HOURS 2019-10-27 15:15:00 Brittany King XR TIBIA FIBULA 2 VW RIGHT 2019-10-27 12:22:07 Tim Campos LACTIC ACID LEVEL, SEPSIS - NOW AND REPEAT 2X EVERY 3 HOURS 2019-10-27 11:52:00 Brittany King HC COMPLETE BLD COUNT W/AUTO DIFF 2019-10-27 11:52:00 Beatrice Campos in Kimberlyn Pani[place] COMPREHENSIVE METABOLIC PANEL 2019-10-27 11:52:00 Tim Campos PARTIAL THROMBOPLASTIN TIME (PTT) 2019-10-27 11:52:00 Beatrice Campos in Kimberlyn Paniagua PROTHROMBIN TIME WITH INR 2019-10-27 11:52:00 Tim Campos HCG QUALITATIVE, SERUM SCREEN 2019-10-27 11:52:00 Tim Campos ESTIMATED GFR 2019-10-27 11:52:00 Tim Campos ethodist BLOOD CULTURE, AEROBIC & ANAEROBIC 2019-10-27 11:51:00 Amita Campos BLOOD CULTURE, AEROBIC & ANAEROBIC 2019-10-27 11:45:00 Amita Campos Plan of Care Planned Activity Planned Date Details Comments Source Future Scheduled Test 2020-06-26 00:00:00 INFLUENZA VACCINE [code = INFLUENZA VACCINE] [facility] Future Scheduled Test 2013-06-07 03:50:29 Plan of Care [code = 1877 6-5] [facility] Scheduled Test 2013-04-09 10:51:48 Plan of Care [code = 1877 6-5] [facility] Scheduled Test 2012-12-13 00:03:35 Plan of Care [code = 1877 6-5] [facility] Scheduled Test 2012-12-03 01:05:18 Plan of Care [code = 1877 6-5] [facility] Scheduled Test 2012-11-14 22:04:40 Plan of Care [code = 1877 6-5] [facility] Scheduled Test 2012-10-11 20:24:25 Plan of Care [code = 1877 6-5] [facility] Scheduled Test 2012-10-06 23:00:43 Plan of Care [code = 1877 6-5] [facility] Scheduled Test 2012-10-04 21:11:57 Plan of Care [code = 1877 6-5] [facility] Scheduled Test 1999 00:00:00 Screening for sachin gnant neoplasm of cervix (procedure) [code = 786924291] [facility] Scheduled Test 1988 00:00:00 DIABETIC FOOT EXAM [code = DIABETIC FOOT EXAM] [facility] Scheduled Test 1988 00:00:00 URINE MICROALBUMIN [code = URINE MICROALBUMIN] [facility] Scheduled Test 1978 00:00:00 DIABETIC RETINAL E YE EXAM [code = DIABETIC RETINAL EYE EXAM] [facility] Knee Overuse [facility] Encounters Start Date/Time End Date/Time Encounter Type Admission Type Attendi [facility] Care Department Encounter ID Source 2020-04-28 18:03:00 2020-04-28 20:01:00 Departed Emergency Room 1 TROY SANDOVAL [facility] [id number] [facility] 2020-01-03 00:00:00 2020-01-06 00:00:00 Inpatient BRITTANY KING [facility] [id number] [facility] 2020-01-03 18:21:00 2020-01-03 21:45:00 Departed Emergency Room [facility] [id number] [facility] 2019-11-18 16:31:00 2019-11-18 19:29:00 Departed Emergency Room [facility] [id number] [facility] 2019-10-27 00:00:00 2019-11-06 00:00:00 Inpatient BRITTANY KING [facility] [id number] Torrey Paniagua 2019-09-07 19:20:00 2019-09-07 19:47:00 Departed Emergency Room [facility] [id number] [facility] 2019-09-02 23:53:00 2019-09-05 13:00:00 Discharged Inpatient 1 UMBERTO DRIVER [facility] [id number] [facility] 2019-09-02 07:14:00 2019-09-02 08:13:00 Departed Emergency Room [facility] [id number] [facility] 2018-08-30 02:58:00 2018-08-30 06:03:00 Departed Emergency Room 1 CRISTINA POWELL [facility] [id number] [facility] 2014-01-30 17:17:55 2014-01-30 17:17:54 Outpatient [facility] [id number] 2013-06-06 22:50:49 2013-06-06 22:50:29 Outpatient [facility] [id number] 2013-04-09 05:52:07 2013-04-09 05:51:48 Outpatient [facility] [id number] 2012-12-12 18:03:51 2012-12-12 18:03:35 Outpatient [facility]IE [facility] [id number] 2012-12-02 19:05:35 2012-12-02 19:05:18 Outpatient MHIE [facility] [id number] 2012-11-14 16:04:56 2012-11-14 16:04:40 Outpatient [facility]IE MHIE [id number] 2012-10-11 14:24:41 2012-10-11 14:24:25 Outpatient [facility]IE [facility] [id number] 2012-10-06 17:00:58 2012-10-06 17:00:43 Outpatient MHIE [facility] [id number] 2012-10-04 15:12:13 2012-10-04 15:11:57 Outpatient [facility]IE [facility] [id number] 2012-10-02 11:51:53 2012-10-02 11:51:38 Outpatient [facility]IE [facility]IE [id number] 2012-10-01 12:38:34 2012-10-01 12:38:19 Outpatient MHIE MHIE [id number] 2012-09-30 13:44:57 2012-09-30 13:44:42 Outpatient MHIE [facility]IE [id number] 2012-09-25 15:22:31 2012-09-25 15:22:16 Outpatient MHIE MHIE [id number] 2012-09-25 09:54:10 2012-09-25 09:53:54 Outpatient MHIE MHIE [id number] 2012-09-23 11:08:14 2012-09-23 11:07:59 Outpatient MHIE [facility]IE [id number] 2012-09-20 14:47:59 2012-09-20 14:47:44 Outpatient MHIE [facility]IE [id number] 2012-09-06 14:27:48 2012-09-06 14:27:31 Outpatient MHIE MHIE [id number] 2012-09-06 13:17:51 2012-09-06 13:17:36 Outpatient MHIE MHIE [id number] Results Test Description Test Time Test Comments Results Result Comments Source KNEE 3VW LT - HOPD 2020-04-28 19:12:00 [place] [address] Patient Name: SHERRIE ABDULLAHI MR #: [id number] : 1980 Age/Sex: 39/F Req #: [id number] Adm Physician: Ordered by: TROY SANDOVAL MD Report #: [id number] Location: [facility] Room/Bed: Procedure: [id number] HOPD/KNEE 3VW LT - HOPD Exam Date: 04/28/20 Exam Time: 1819 REPORT STATUS: Signed Left knee 3 - views HISTORY: Pain status post trauma. COMPARISON: None FINDINGS: No displaced fracture. Osseous alignment is within normal limits. Mild degenerative changes of the medial compartment with small lateral marginal osteophytes. IMPRESSION: No acute radiographic abnormality. 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 Signed by: Dr. Anila aSntiago M.D. on 04/28/2020 7:14 PM Dictated By: KANCHAN SANTIAGO MD, MD 13 Transcribed By: BOGDAN on 04/28/201913 COPY TO: TROY SANDOVAL MD POC glucose 2020-01-06 12:05:37 Test Item POC glucose (test code = 60459-3) 120 mg/dL 65-99 H Tail Edger Name: Caroline Olguin ID: [id number] Lab Interpretation (test code = 34261-5) Abnormal [place] [facility] [id number] 08:31:55* Test Item Value Reference Range Interpretation Comments Sodium (test code = 2951-2) 137 135- 148 mEq/L Potassium (test code = 2823-3) 3.6 3.5- 5.0 mEq/L Chloride (test code = 2075-0) 96 98- 112 mEq/L L CO2 (test code = 8-9) 30 24- 31 mEq/L Anion gap (test code = 89469-6) 11@ANIO 7- 15 mEq/L BUN (test code = 3094-0) 9 mg/dL 6-20 Creatinine (test code = 2160-0) 0.60 mg/dL 0.5-0.9 Glucose (test code = 2345-7) 174 mg/dL 65-99 H Calcium (test code = 05537-9) 9.6 mg/dL 8.3-10.2 Lab Interpretation (test code = 14621-3) Abnormal [place] [facility] [id number] 08:31:55* Test Item Value Reference Range Interpretation Comments Estimated GFR (test code = 5488) >=90 mL/min/1.73 m2 Catergory Units InterpretationG1 >=90 Normal or highG2 60-89 Mildly bvxfdwazzT8j 45-59 Mildly to moderately ysuefedboN8p 30-44 Moderately to severely decreasedG4 15-29 Severely decreasedG5 <15 Kidney failureThe eGFR was calculated using the Chronic Kidney Disease Epidemiology Collaboration (CKD-EPI) equation. Interpretation is based on recommendations of the National Kidney Foundation-Kidney Disease Outcomes Quality Initiative (NKF-KDOQI) published in 2014. 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 IV therapy Location: Left cephalic Device Type: Valved Catheter size: 4 FrLine Characteristics: Cat heter Brand: Optaros External Catheter Length (cm): 0 Internal Catheter [...] of procedure: To lerated well, no immediate complicationsTinley Park MethodistComprehensive metabolic [id number] 05:58:50* Test Item Value Reference Range Interpretation Comments Sodium (test code = 2951-2) 137 135- 148 mEq/L Potassium (test code = 2823-3) 3.1 3.5- 5.0 mEq/L L Chloride (test code = 5-0) 97 98- 112 mEq/L L CO2 (test code = 2027-9) 27 24- 31 mEq/L Anion gap (test code = 17534-8) 13@ANIO 7- 15 mEq/L BUN (test code = 3094-0) 10 mg/dL 6-20 Creatinine (test code = 2160-0) 0.70 mg/dL 0.5-0.9 Glucose (test code = 2345-7) 204 mg/dL 65-99 H Calcium (test code = 05976-6) 9.3 mg/dL 8.3-10.2 Protein (test code = 2885-2) 6.6 g/dL 6.3-8.3 Gomwzra4240.6-7.0 g/dL1 ifyw4528.4-7.6 g/dL7 months-8oktc113.1-7.3 g/dL1-2 .6-7.5 g/dL>3 wervs221.0-8.0 g/bK74-9729561.3-8.3 g/dL Albumin (test code = 1751-7) 3.1 g/dL 3.5-5 L A/G ratio (test code = 1759-0) 0.9 0.7-3.8 Alkaline phosphatase (test code = 6768-6) 84 U/L 35-104 AST (test code = 1920-8) 17 U/L 10-35 ALT (test code = 1742-6) 26 U/L 5-50 Total bilirubin (test code = 1975-2) 0.3 mg/dL 0-1.2 Lab Interpretation (test code = 96482-8) [facility] with platelet and [id number] 05:37:01* Test Item Value Reference Range Interpretation Comments WBC (test code = 37761-8) 6.64 4.50- 11.00 k/uL RBC (test code = 99508-4) 3.80 m/uL 4.2-5.5 L HGB (test code = 718-7) 10.6 g/dL 12-16 L HCT (test code = 4544-3) 33.2 % 37-47 L MCV (test code = 787-2) 87.4 fL 82-100 MCH (test code = 785-6) 27.9 pg 27-34 MCHC (test code = 786-4) 31.9 g/dL 31-37 RDW - SD (test code = 46986-9) 48.3 fL 37-55 MPV (test code = 15630-8) 9.9 fL 8.8-13.2 Platelet count (test code = 95257-6) 284 150- 400 k/uL Nucleated RBC (test code = 75741-0) 0.00 /100 WBC Neutrophils (test code = 76509-5) 58.3 % 39-69 Lymphocytes (test code = 57182-8) 31.2 % 25-45 Monocytes (test code = 23699-2) 3.8 % 0-10 Eosinophils (test code = 31354-9) 2.4 % 0-5 Basophils (test code = 92192-4) 0.2 % 0-1 Lab Interpretation (test code = 53644-7) Abnormal [place] [facility]Anaerobic [id number] 09:19:21* Test Item Value Reference Range Interpretation Comments Anaerobic culture isolate (test code = 552) No anaerobic organis ms isolated. Specimen InformationSpecimen Source: Abs cessSpecimen Site: Leg [place] MethodistGram [id number] 19:00:09* Test Item Value Reference Range Interpretation Comments Gram stain isolate (test code = 1469) No WBC's or organisms seen. Specimen InformationSpecimen Source: AbscessSpecimen Site: Leg [place] MethodistManual vqzancerdvlg9737-31-16 06:40:54* Test Item Value Reference Range Interpretation Comments Manual differential (test code = 04187-2) PERFORMED Neutrophils (test code = 26052-1) 83.0 % 39-69 H Lymphocytes (test code = 58393-3) 12.0 % 25-45 L Monocytes (test code = 66730-3) 1.0 % 0-10 Eosinophils (test code = 98655-8) 0.0 % 0-5 Basophils (test code = 26957-1) 1.0 % 0-1 Metamyelocytes (test code = 740-1) 2 % Myelocytes (test code = 749-2) 1 % Promyelocytes (test code = 783-1) 0 % Platelet slide review (test code = 36782-2) Kamilla adequate Anisocytosis (test code = 702-1) Moderate Lab Interpretation (test code = 90565-4) Abnormal [place] MethodistBlood culture, aerobic & zfchqumcj7226-04-59 21:33:04* Test Item Value Reference Range Interpretation Comments Blood culture isolate (test code = 600-7) No growth after 5 days of incubation. Specimen InformationSpecimen Source: BloodSpecimen Site: Antecubital, right [place] MethodistMRSA screen kigdwon7651-52-10 17:47:17* Test Item Value Reference Range Interpretation Comments MRSA screen culture isolate (test code = 1754) No Meth icillin Resistant Staphylococcus aureus isolated. Specimen InformationSpecimen Source: NaresSpecimen Site: Left [place] MethodistVitamin D 25 hydroxy rctzy2126-89-52 22:21:15* Test Item Value Reference Range Interpretation [...] alternative methods. Lab Interpretation (test code = 26530-2) Abnormal [place] MethodistPrealbumin yaigs0659-22-37 21:14:19* Test Item Value Reference Range Interpretation Comments Prealbumin (test code = 6793-4) 13 mg/dL 16-32 L Lab Interpretation (test code = 64018-7) Abnormal [place] MethodistHemoglobin F4s8963-14-32 07:32:36* Test Item Value Reference Range Interpretation Comments Hemoglobin A1C (test code = 27882-1) 6.6 % 4-5.6 H HbA1c cutoffs for diagnosing diabetes:4.0% - 5.6% = normal5.7% - 6.4% = increased risk for diabetes (prediabetes)9>=6.5% = pdpiermu9Hxrmk for glycemic control (ADA 2016)< 7.0% Target for non adults with diabetes. More or less stringent targets may be appropriate for individual patients. <7.5% Target for Children and adolescents with type 1 diabetes. Lab Interpretation (test code = 57017-4) Abnormal [place] MethodistMagnesium rzhay7202-29-38 06:33:43* Test Item Value Reference Range Interpretation Comments Magnesium (test code = 62988-5) 2.5 mg/dL 1.6-2.6 [place] MethodistVENIPUNC NEED PHYS SKILL,DX OR SQ7362-04-18 15:03:56Phan Parekh RN 10/28/2019 3:06 PMMidlineDate/Time: 10/28/2019 [...] Flat Indication: Poor venous access and known correction IV therapy Location: Right cephalic Device Type: [...] of procedur e: Tolerated well, no immediate complicationsTorrey MethodistLactic acid level, SEPSIS - Now and repeat 2x every 3 mucwh7038-35-14 18:48:05* Test Item Value Reference Range Interpretation Comments Lactic acid (test code = 25001-0) 1.4 mmol/L 0.5-2.2 [place] PaniaguaXR Tibia Fibula 2 Vw Ycjmc0978-90-06 12:52:32Hm Interface, Radiology Results Incoming - 10/27/2019 12:55 PM CSTStudy:XR TIBIA FIBULA 2 VW RIGHTHistory:possible infectionCOMPARISON:None.IMPRESSION:2 views of the right leg. No acute fracture or erosions. There is a focal opacity in the anterior soft tissues distally which is nonspecific. No soft tissue air.[id number] [place] ClineisthCG qualitative, serum ndcbjn9387-25-20 12:18:33* Test Item Value Reference Range Interpretation Comments hCG qualitative, serum (test code = 2118-8) Negative [place] MethodistProthrombin time with VKD5744-54-16 12:15:14* Test Item Value Reference Range Interpretation Comments Prothrombin time (test code = 5902-2) 13.2 11.5- 14.5 sec INR (test code = 97973-4) 1.0 Th e International Normalized Ratio (INR) is a therapeutic monitoring tool for patients who are stable on oral anticoagulant therapy. An INR of 2.0-3.0 is suggested for deep vein thrombosis/pulmonary embolism. [place] [facility]gila [facility] centerPartial thromboplastin time, cdnnabxoy6825-59-62 12:15:14* Test Item Value Reference Range Interpretation Comments PTT (test code = 23715-9) 40.1 23.0- 36.0 sec H PTT therapeutic range for unfractionated heparin is61.0-112.0 seconds which corresponds to Anti-Xa0.3-0.7 U/ml. Lab Interpretation (test code = 56308-5) Abnormal [facility] Smuvrqz2377-34-96 21:42:00* Test Item Value Reference Range Interpretation Comments Blood Culture (test code = 99116316) NO GROWTH AFTER 5 DAYS, FINAL REPORT [facility] Fiignpg9217-65-31 21:42:00* Test Item Value Reference Range Interpretation Comments Blood Culture (test code = 04683606) NO GROWTH AFTER 5 DAYS, [facility] Juoyyoq0792-24-73 21:42:00* Test Item Value Reference Range Interpretation Comments Blood Culture (test code = 11638952) NO GROWTH AFTER 72 HOURS [facility] CenterPlatelet Tqwaqeav1603-03-53 07:34:00* Test Item Value Reference Range Interpretation Comments Platelet Estimate (test code = 43125-8) MODERATELY DECREASED [facility] CenterPlatelet Morphology Gqyasvg7606-02-17 07:34:00* Test Item Value Reference Range Interpretation Comments Platelet Morphology Comment (test code = 59489-8) FEW LARGE NO EDTA PLT CLUMPS SEENCHI [facility]Pl[facility] Estimate 2019-09-05 07:34:00* Test Item Value Reference Range Interpretation Comments Platelet Estimate (test code = 07461-2) MODERATELY DECREASED [facility] CenterPlatelet Morphology Vzolssp7227-66-14 07:34:00* Test Item Value Reference Range Interpretation Comments Platelet Morphology Comment (test code = 16233-1) FEW LARGE NO EDTA PLT CLUMPS SEENCarl R. Darnall Army Medical CenterPlatelet Estimate 2019-09-05 07:34:00* Test Item Value Reference Range Interpretation Comments Platelet Estimate (test code = 04386-1) MODERATELY DECREASED [facility] CenterPlatelet Morphology Wglbmlt2324-90-57 07:34:00* Test Item Value Reference Range Interpretation Comments Platelet Morphology Comment (test code = 22612-2) FEW LARGE NO EDTA PLT CLUMPS SEENCarl R. [facility]all [facility] CenterPlatelet Estimate 2019-09-05 07:34:00* Test Item Value Reference Range Interpretation Comments Platelet Estimate (test code = 43265-0) MODERATELY DECREASED [facility] CenterPlatelet Morphology Msajehz6004-24-43 07:34:00* Test Item Value Reference Range Interpretation Comments Platelet Morphology Comment (test code = 09204-6) FEW LARGE NO EDTA PLT CLUMPS SEENB[facility] Planoodium Level 2019-09-05 06:17:00* Test Item Value Reference Range Interpretation Comments Sodium Level (test code = 2951-2) 136 136-145 [facility] CenterPotassium Wyvdx6751-31-07 06:17:00* Test Item Value Reference Range Interpretation Comments Potassium Level (test code = 2823-3) 4.2 3.5-5.1 [facility] CenterChloride Odgij6217-09-72 06:17:00* Test Item Value Reference Range Interpretation Comments Chloride Level (test code = 2075-0) 106 98-107 [facility] CenterCarbon Dioxide Ljbcr9475-60-41 06:17:00* Test Item Value Reference Range Interpretation Comments Carbon Dioxide Level (test code = 2028-9) 18 22-29 L [facility] CenterAnion Iby4929-87-37 06:17:00* Test Item Value Reference Range Interpretation Comments Anion Gap (test code = 83459-2) 16.2 8-16 H [facility] CenterBlood Urea Sfwdphxo9092-79-89 06:17:00* Test Item Value Reference Range Interpretation Comments Blood Urea Nitrogen (test code = 3094-0) 10 7-26 [facility] CenterCreatinine2019-10-11 06:17:00* Test Item Value Reference Range Interpretation Comments Creatinine (test code = 2160-0) 0.80 0.57-1.11 [facility] CenterBUN/Creatinine Hktjv9931-90-14 06:17:00* Test Item Value Reference Range Interpretation Comments BUN/Creatinine Ratio (test code = 3097-3) 13 05-20 [facility] CenterEstimat Glomerular Filtration Rate 2019-09-05 06:17:00* Test Item Value Reference Range Interpretation Comments Estimat Glomerular Filtration Rate (test code = 027210141) > 60 >60 Ranges were taken from the National Kidney Disease Education Program and the [facility] [employer] literature.Reference ranges:60 or greater: Rkbjrb75-56 ( for 3 consecutive months): Chronic kidney disease 15 or less: Kidney failureCarl R. Darnall Army Medical CenterGlucose Vrwwz2327-93-22 06:17:00* Test Item Value Reference Range Interpretation Comments Glucose Level (test code = UGA1172) 272 74-118 H [facility] CenterCalcium Uofcp1409-35-98 06:17:00* Test Item Value Reference Range Interpretation Comments Calcium Level (test code = 23460-3) 9.2 8.4-10.2 [facility] Planoodium Yesfw7426-69-74 06:17:00* Test Item Value Reference Range Interpretation Comments Sodium Level (test code = 2951-2) 136 136-145 [facility] CenterPotassium Awkjy5577-84-85 06:17:00* Test Item Value Reference Range Interpretation Comments Potassium Level (test code = 2823-3) 4.2 3.5-5.1 [facility] CenterChloride Pltxc9644-49-46 06:17:00* Test Item Value Reference Range Interpretation Comments Chloride Level (test code = 2075-0) 106 98-107 [facility] CenterCarbon Dioxide Tiiup3183-10-36 06:17:00* Test Item Value Reference Range Interpretation Comments Carbon Dioxide Level (test code = 2028-9) 18 22-29 L [facility] CenterAnion Pas9614-49-49 06:17:00* Test Item Value Reference Range Interpretation Comments Anion Gap (test code = 01672-7) 16.2 8-16 H [facility] CenterBlood Urea Eicpmfsa3431-07-30 06:17:00* Test Item Value Reference Range Interpretation Comments Blood Urea Nitrogen (test code = 3094-0) 10 7-26 [facility] CenterCreatinine2019-10-11 06:17:00* Test Item Value Reference Range Interpretation Comments Creatinine (test code = 2160-0) 0.80 0.57-1.11 [facility] CenterBUN/Creatinine Sijvh0776-74-33 06:17:00* Test Item Value Reference Range Interpretation Comments BUN/Creatinine Ratio (test code = 3097-3) 13 6-25 [facility] CenterEstimat Glomerular Filtration Rate 2019-09-05 06:17:00* Test Item Value Reference Range Interpretation Comments Estimat Glomerular Filtration Rate (test code = 971486172) > 60 >60 Ranges were taken from the National Kidney Disease Education Program and the [facility] [employer] literature.Reference ranges:60 or greater: Kcggjr80-84 ( for 3 consecutive months): Chronic kidney disease 15 or less: Kidney failureCarl R. Darnall Army Medical CenterGlucose Nhppf2496-57-47 06:17:00* Test Item Value Reference Range Interpretation Comments Glucose Level (test code = LNO1657) 272 74-118 H [facility] CenterCalcium Jmbyb1646-96-24 06:17:00* Test Item Value Reference Range Interpretation Comments Calcium Level (test code = 84311-3) 9.2 8.4-10.2 [facility] Wqsuj5594-81-42 06:17:00* Test Item Value Reference Range Interpretation Comments Sodium Level (test code = 2951-2) 136 136-145 [facility] CenterPotassium Qjyun6528-06-08 06:17:00* Test Item Value Reference Range Interpretation Comments Potassium Level (test code = 2823-3) 4.2 3.5-5.1 [facility] CenterChloride Gsije6062-19-37 06:17:00* Test Item Value Reference Range Interpretation Comments Chloride Level (test code = 2075-0) 106 98-107 [facility] CenterCarbon Dioxide Kftdo3773-59-19 06:17:00* Test Item Value Reference Range Interpretation Comments Carbon Dioxide Level (test code = 2028-9) 18 22-29 L [facility] CenterAnion Dgt9826-90-42 06:17:00* Test Item Value Reference Range Interpretation Comments Anion Gap (test code = 96285-8) 16.2 8-16 H [facility] CenterBlood Urea Nvkngtxs1934-33-99 06:17:00* Test Item Value Reference Range Interpretation Comments Blood Urea Nitrogen (test code = 3094-0) 10 7-26 [facility] CenterCreatinine2019-10-11 06:17:00* Test Item Value Reference Range Interpretation Comments Creatinine (test code = 2160-0) 0.80 0.57-1.11 [facility] CenterBUN/Creatinine Fazrf2697-20-10 06:17:00* Test Item Value Reference Range Interpretation Comments BUN/Creatinine Ratio (test code = 3097-3) 13 6-25 [facility] CenterEstimat Glomerular Filtration Rate 2019-09-05 06:17:00* Test Item Value Reference Range Interpretation Comments Estimat Glomerular Filtration Rate (test code = 308756821) > 60 >60 Ranges were taken from the National Kidney Disease Education Program and the [facility] [employer] literature.Reference ranges:60 or greater: Gteumn49-96 ( for 3 consecutive months): Chronic kidney disease 15 or less: Kidney failureCarl R. Darnall Army Medical CenterGlucose Vpjzw9794-93-51 06:17:00* Test Item Value Reference Range Interpretation Comments Glucose Level (test code = NKK4162) 272 74-118 H [facility] CenterCalcium Fwrwe4348-90-63 06:17:00* Test Item Value Reference Range Interpretation Comments Calcium Level (test code = 09314-3) 9.2 8.4-10.2 [facility] Wkjyo8868-78-54 06:17:00* Test Item Value Reference Range Interpretation Comments Sodium Level (test code = 2951-2) 136 136-145 [facility] CenterPotassium Rqxxx2980-69-75 06:17:00* Test Item Value Reference Range Interpretation Comments Potassium Level (test code = 2823-3) 4.2 3.5-5.1 [facility] CenterChloride Cyujh6076-78-76 06:17:00* Test Item Value Reference Range Interpretation Comments Chloride Level (test code = 2075-0) 106 98-107 [facility] CenterCarbon Dioxide Gcioc1729-51-91 06:17:00* Test Item Value Reference Range Interpretation Comments Carbon Dioxide Level (test code = 2028-9) 18 22-29 L [facility] CenterAnion Xjg0672-77-80 06:17:00* Test Item Value Reference Range Interpretation Comments Anion Gap (test code = 40015-9) 16.2 8-16 H [facility] CenterBlood Urea Kmyxmztp0035-74-30 06:17:00* Test Item Value Reference Range Interpretation Comments Blood Urea Nitrogen (test code = 3094-0) 10 7-26 [facility] CenterCreatinine2019-10-11 06:17:00* Test Item Value Reference Range Interpretation Comments Creatinine (test code = 2160-0) 0.80 0.57-1.11 [facility] CenterBUN/Creatinine Flkvy1140-24-63 06:17:00* Test Item Value Reference Range Interpretation Comments BUN/Creatinine Ratio (test code = 3097-3) 13 6-25 [facility] CenterEstimat Glomerular Filtration Rate 2019-09-05 06:17:00* Test Item Value Reference Range Interpretation Comments Estimat Glomerular Filtration Rate (test code = 617010246) > 60 >60 Ranges were taken from the National Kidney Disease Education Program and the [facility] [employer] literature.Reference ranges:60 or greater: Dmjufu95-32 ( for 3 consecutive months): Chronic kidney disease 15 or less: Kidney failureCarl R. Darnall Army Medical CenterGlucose Nyxrw3562-37-79 06:17:00* Test Item Value Reference Range Interpretation Comments Glucose Level (test code = XEU3804) 272 74-118 H [facility] CenterCalcium Nbdmr9160-36-50 06:17:00* Test Item Value Reference Range Interpretation Comments Calcium Level (test code = 43170-2) 9.2 8.4-10.2 [facility] CenterWhite Blood Vdttc7848-26-77 06:15:00* Test Item Value Reference Range Interpretation Comments White Blood Count (test code = 6690-2) 12.38 4.8-10.8 H [facility] CenterRed Blood Yqboi6539-91-52 06:15:00* Test Item Value Reference Range Interpretation Comments Red Blood Count (test code = 789-8) 4.44 3.6-5.1 [facility] CenterHemoglobin2019-10-11 06:15:00* Test Item Value Reference Range Interpretation Comments Hemoglobin (test code = 30879-6) 12.4 12.0-16.0 [facility] CenterHematocrit2019-10-11 06:15:00* Test Item Value Reference Range Interpretation Comments Hematocrit (test code = 4544-3) 40.4 34.2-44.1 [facility] CenterMean Corpuscular Stxdjp1362-20-09 06:15:00* Test Item Value Reference Range Interpretation Comments Mean Corpuscular Volume (test code = 787-2) 91.0 81-99 [facility] CenterMean Corpuscular Gmmapnnhuf8233-92-71 06:15:00* Test Item Value Reference Range Interpretation Comments Mean Corpuscular Hemoglobin (test code = 785-6) 27.9 28-32 L [facility] CenterMean Corpuscular Hemoglobin Concent 2019-09-05 06:15:00* Test Item Value Reference Range Interpretation Comments Mean Corpuscular Hemoglobin Concent (test code = 786-4) 30.7 31-35 L [facility] CenterRed Cell Distribution Xnkgz2238-55-09 06:15:00* Test Item Value Reference Range Interpretation Comments Red Cell Distribution Width (test code = 16460-9) 14.7 11.7 -14.4 H [facility] CenterPlatelet Fgjkj1293-50-78 06:15:00* Test Item Value Reference Range Interpretation Comments Platelet Count (test code = 777-3) 163 140-360 [facility] CenterNeutrophils (%) (Auto)2019-09-05 06:15:00 * Test Item Value Reference Range Interpretation Comments Neutrophils (%) (Auto) (test code = 88982-2) 83.4 38.7-80.0 H [facility] CenterLymphocytes (%) (Auto)2019-09-05 06:15:00 * Test Item Value Reference Range Interpretation Comments Lymphocytes (%) (Auto) (test code = 736-9) 10.7 18.0-39.1 L [facility] CenterMonocytes (%) (Auto)2019-09-05 06:15:00* Test Item Value Reference Range Interpretation Comments Monocytes (%) (Auto) (test code = 5905-5) 4.2 4.4-11.3 L [facility] CenterEosinophils (%) (Auto)2019-09-05 06:15:00 * Test Item Value Reference Range Interpretation Comments Eosinophils (%) (Auto) (test code = 713-8) 0.4 0.0-6.0 [facility] CenterBasophils (%) (Auto)2019-09-05 06:15:00* Test Item Value Reference Range Interpretation Comments Basophils (%) (Auto) (test code = 706-2) 0.2 0.0-1.0 [facility] CenterIM GRANULOCYTES %2019-09-05 06:15:00* Test Item Value Reference Range Interpretation Comments IM GRANULOCYTES % (test code = IM GRANULOCYTES %) 1.1 0.0- 1.0 H [facility] CenterNeutrophils # (Auto)2019-09-05 06:15:00* Test Item Value Reference Range Interpretation Comments Neutrophils # (Auto) (test code = 751-8) 10.3 2.1-6.9 H [facility] CenterLymphocytes # (Auto)2019-09-05 06:15:00* Test Item Value Reference Range Interpretation Comments Lymphocytes # (Auto) (test code = 04238-1) 1.3 1.0-3.2 [facility] CenterMonocytes # (Auto)2019-09-05 06:15:00* Test Item Value Reference Range Interpretation Comments Monocytes # (Auto) (test code = 742-7) 0.5 0.2-0.8 [facility] CenterEosinophils # (Auto)2019-09-05 06:15:00* Test Item Value Reference Range Interpretation Comments Eosinophils # (Auto) (test code = 711-2) 0.1 0.0-0.4 [facility] CenterBasophils # (Auto)2019-09-05 06:15:00* Test Item Value Reference Range Interpretation Comments Basophils # (Auto) (test code = 704-7) 0.0 0.0-0.1 [facility] CenterAbsolute Immature Granulocyte (auto 2019-09-05 06:15:00* Test Item Value Reference Range Interpretation Comments Absolute Immature Granulocyte (auto (liborio t code = Absolute Immature Granulocyte (auto) 0.13 0-0.1 H [facility] CenterWhite Blood Byero0483-10-62 06:15:00* Test Item Value Reference Range Interpretation Comments White Blood Count (test code = 6690-2) 12.38 4.8-10.8 H [facility] CenterRed Blood Uoolk6476-09-89 06:15:00* Test Item Value Reference Range Interpretation Comments Red Blood Count (test code = 789-8) 4.44 3.6-5.1 [facility] CenterHemoglobin2019-10-11 06:15:00* Test Item Value Reference Range Interpretation Comments Hemoglobin (test code = 45823-9) 12.4 12.0-16.0 [facility] CenterHematocrit2019-10-11 06:15:00* Test Item Value Reference Range Interpretation Comments Hematocrit (test code = 4544-3) 40.4 34.2-44.1 [facility] CenterMean Corpuscular Gfewcz2632-90-46 06:15:00* Test Item Value Reference Range Interpretation Comments Mean Corpuscular Volume (test code = 787-2) 91.0 81-99 [facility] CenterMean Corpuscular Nudohdjugq2075-39-55 06:15:00* Test Item Value Reference Range Interpretation Comments Mean Corpuscular Hemoglobin (test code = 785-6) 27.9 28-32 L [facility] CenterMean Corpuscular Hemoglobin Concent 2019-09-05 06:15:00* Test Item Value Reference Range Interpretation Comments Mean Corpuscular Hemoglobin Concent (test code = 786-4) 30.7 31-35 L [facility] CenterRed Cell Distribution Eiurm2620-66-03 06:15:00* Test Item Value Reference Range Interpretation Comments Red Cell Distribution Width (test code = 21938-4) 14.7 11.7 -14.4 H [facility] CenterPlatelet Bkaci7804-16-45 06:15:00* Test Item Value Reference Range Interpretation Comments Platelet Count (test code = 777-3) 163 140-360 [facility] CenterNeutrophils (%) (Auto)2019-09-05 06:15:00 * Test Item Value Reference Range Interpretation Comments Neutrophils (%) (Auto) (test code = 36097-2) 83.4 38.7-80.0 H [facility] CenterLymphocytes (%) (Auto)2019-09-05 06:15:00 * Test Item Value Reference Range Interpretation Comments Lymphocytes (%) (Auto) (test code = 736-9) 10.7 18.0-39.1 L [facility] CenterMonocytes (%) (Auto)2019-09-05 06:15:00* Test Item Value Reference Range Interpretation Comments Monocytes (%) (Auto) (test code = 5905-5) 4.2 4.4-11.3 L [facility] CenterEosinophils (%) (Auto)2019-09-05 06:15:00 * Test Item Value Reference Range Interpretation Comments Eosinophils (%) (Auto) (test code = 713-8) 0.4 0.0-6.0 [facility] CenterBasophils (%) (Auto)2019-09-05 06:15:00* Test Item Value Reference Range Interpretation Comments Basophils (%) (Auto) (test code = 706-2) 0.2 0.0-1.0 [facility] CenterIM GRANULOCYTES %2019-09-05 06:15:00* Test Item Value Reference Range Interpretation Comments IM GRANULOCYTES % (test code = IM GRANULOCYTES %) 1.1 0.0- 1.0 H [facility] CenterNeutrophils # (Auto)2019-09-05 06:15:00* Test Item Value Reference Range Interpretation Comments Neutrophils # (Auto) (test code = 751-8) 10.3 2.1-6.9 H [facility] CenterLymphocytes # (Auto)2019-09-05 06:15:00* Test Item Value Reference Range Interpretation Comments Lymphocytes # (Auto) (test code = 60095-8) 1.3 1.0-3.2 [facility] CenterMonocytes # (Auto)2019-09-05 06:15:00* Test Item Value Reference Range Interpretation Comments Monocytes # (Auto) (test code = 742-7) 0.5 0.2-0.8 [facility] CenterEosinophils # (Auto)2019-09-05 06:15:00* Test Item Value Reference Range Interpretation Comments Eosinophils # (Auto) (test code = 711-2) 0.1 0.0-0.4 [facility] CenterBasophils # (Auto)2019-09-05 06:15:00* Test Item Value Reference Range Interpretation Comments Basophils # (Auto) (test code = 704-7) 0.0 0.0-0.1 [facility] CenterAbsolute Immature Granulocyte (auto 2019-09-05 06:15:00* Test Item Value Reference Range Interpretation Comments Absolute Immature Granulocyte (auto (liborio t code = Absolute Immature Granulocyte (auto) 0.13 0-0.1 H [facility] CenterWhite Blood Bbfbg3597-07-83 06:15:00* Test Item Value Reference Range Interpretation Comments White Blood Count (test code = 6690-2) 12.38 4.8-10.8 H [facility] CenterRed Blood Dlsbx6084-38-98 06:15:00* Test Item Value Reference Range Interpretation Comments Red Blood Count (test code = 789-8) 4.44 3.6-5.1 [facility] CenterHemoglobin2019-10-11 06:15:00* Test Item Value Reference Range Interpretation Comments Hemoglobin (test code = 68288-8) 12.4 12.0-16.0 [facility] CenterHematocrit2019-10-11 06:15:00* Test Item Value Reference Range Interpretation Comments Hematocrit (test code = 4544-3) 40.4 34.2-44.1 [facility] CenterMean Corpuscular Vzjoaw2950-28-12 06:15:00* Test Item Value Reference Range Interpretation Comments Mean Corpuscular Volume (test code = 787-2) 91.0 81-99 [facility] CenterMean Corpuscular Uwxgeudcpu9837-85-98 06:15:00* Test Item Value Reference Range Interpretation Comments Mean Corpuscular Hemoglobin (test code = 785-6) 27.9 28-32 L [facility] CenterMean Corpuscular Hemoglobin Concent 2019-09-05 06:15:00* Test Item Value Reference Range Interpretation Comments Mean Corpuscular Hemoglobin Concent (test code = 786-4) 30.7 31-35 L [facility] CenterRed Cell Distribution Ztqga8094-29-23 06:15:00* Test Item Value Reference Range Interpretation Comments Red Cell Distribution Width (test code = 46201-3) 14.7 11.7 -14.4 H [facility] CenterPlatelet Mlyrz7728-49-51 06:15:00* Test Item Value Reference Range Interpretation Comments Platelet Count (test code = 777-3) 163 140-360 [facility] CenterNeutrophils (%) (Auto)2019-09-05 06:15:00 * Test Item Value Reference Range Interpretation Comments Neutrophils (%) (Auto) (test code = 01588-8) 83.4 38.7-80.0 H [facility] CenterLymphocytes (%) (Auto)2019-09-05 06:15:00 * Test Item Value Reference Range Interpretation Comments Lymphocytes (%) (Auto) (test code = 736-9) 10.7 18.0-39.1 L [facility] CenterMonocytes (%) (Auto)2019-09-05 06:15:00* Test Item Value Reference Range Interpretation Comments Monocytes (%) (Auto) (test code = 5905-5) 4.2 4.4-11.3 L [facility] CenterEosinophils (%) (Auto)2019-09-05 06:15:00 * Test Item Value Reference Range Interpretation Comments Eosinophils (%) (Auto) (test code = 713-8) 0.4 0.0-6.0 [facility] CenterBasophils (%) (Auto)2019-09-05 06:15:00* Test Item Value Reference Range Interpretation Comments Basophils (%) (Auto) (test code = 706-2) 0.2 0.0-1.0 [facility] CenterIM GRANULOCYTES %2019-09-05 06:15:00* Test Item Value Reference Range Interpretation Comments IM GRANULOCYTES % (test code = IM GRANULOCYTES %) 1.1 0.0- 1.0 H [facility] CenterNeutrophils # (Auto)2019-09-05 06:15:00* Test Item Value Reference Range Interpretation Comments Neutrophils # (Auto) (test code = 751-8) 10.3 2.1-6.9 H [facility] CenterLymphocytes # (Auto)2019-09-05 06:15:00* Test Item Value Reference Range Interpretation Comments Lymphocytes # (Auto) (test code = 94392-2) 1.3 1.0-3.2 [facility] CenterMonocytes # (Auto)2019-09-05 06:15:00* Test Item Value Reference Range Interpretation Comments Monocytes # (Auto) (test code = 742-7) 0.5 0.2-0.8 [facility] CenterEosinophils # (Auto)2019-09-05 06:15:00* Test Item Value Reference Range Interpretation Comments Eosinophils # (Auto) (test code = 711-2) 0.1 0.0-0.4 [facility] CenterBasophils # (Auto)2019-09-05 06:15:00* Test Item Value Reference Range Interpretation Comments Basophils # (Auto) (test code = 704-7) 0.0 0.0-0.1 [facility] CenterAbsolute Immature Granulocyte (auto 2019-09-05 06:15:00* Test Item Value Reference Range Interpretation Comments Absolute Immature Granulocyte (auto (liborio t code = Absolute Immature Granulocyte (auto) 0.13 0-0.1 H [facility] CenterWhite Blood Aeapa2521-92-37 06:15:00* Test Item Value Reference Range Interpretation Comments White Blood Count (test code = 6690-2) 12.38 4.8-10.8 H [facility] CenterRed Blood Xyhpc2842-08-77 06:15:00* Test Item Value Reference Range Interpretation Comments Red Blood Count (test code = 789-8) 4.44 3.6-5.1 [facility] CenterHemoglobin2019-10-11 06:15:00* Test Item Value Reference Range Interpretation Comments Hemoglobin (test code = 70595-5) 12.4 12.0-16.0 [facility] CenterHematocrit2019-10-11 06:15:00* Test Item Value Reference Range Interpretation Comments Hematocrit (test code = 4544-3) 40.4 34.2-44.1 [facility] CenterMean Corpuscular Fjmlqh9471-38-71 06:15:00* Test Item Value Reference Range Interpretation Comments Mean Corpuscular Volume (test code = 787-2) 91.0 81-99 [facility] CenterMean Corpuscular Uvrzyunrqo9130-86-17 06:15:00* Test Item Value Reference Range Interpretation Comments Mean Corpuscular Hemoglobin (test code = 785-6) 27.9 28-32 L [facility] CenterMean Corpuscular Hemoglobin Concent 2019-09-05 06:15:00* Test Item Value Reference Range Interpretation Comments Mean Corpuscular Hemoglobin Concent (test code = 786-4) 30.7 31-35 L [facility] CenterRed Cell Distribution Cymno8135-83-89 06:15:00* Test Item Value Reference Range Interpretation Comments Red Cell Distribution Width (test code = 29612-6) 14.7 11.7 -14.4 H [facility] CenterPlatelet Twypo0644-84-24 06:15:00* Test Item Value Reference Range Interpretation Comments Platelet Count (test code = 777-3) 163 140-360 [facility] CenterNeutrophils (%) (Auto)2019-09-05 06:15:00 * Test Item Value Reference Range Interpretation Comments Neutrophils (%) (Auto) (test code = 61819-9) 83.4 38.7-80.0 H [facility] CenterLymphocytes (%) (Auto)2019-09-05 06:15:00 * Test Item Value Reference Range Interpretation Comments Lymphocytes (%) (Auto) (test code = 736-9) 10.7 18.0-39.1 L [facility] CenterMonocytes (%) (Auto)2019-09-05 06:15:00* Test Item Value Reference Range Interpretation Comments Monocytes (%) (Auto) (test code = 5905-5) 4.2 4.4-11.3 L [facility] CenterEosinophils (%) (Auto)2019-09-05 06:15:00 * Test Item Value Reference Range Interpretation Comments Eosinophils (%) (Auto) (test code = 713-8) 0.4 0.0-6.0 [facility] CenterBasophils (%) (Auto)2019-09-05 06:15:00* Test Item Value Reference Range Interpretation Comments Basophils (%) (Auto) (test code = 706-2) 0.2 0.0-1.0 [facility] CenterIM GRANULOCYTES %2019-09-05 06:15:00* Test Item Value Reference Range Interpretation Comments IM GRANULOCYTES % (test code = IM GRANULOCYTES %) 1.1 0.0- 1.0 H [facility] CenterNeutrophils # (Auto)2019-09-05 06:15:00* Test Item Value Reference Range Interpretation Comments Neutrophils # (Auto) (test code = 751-8) 10.3 2.1-6.9 H [facility] CenterLymphocytes # (Auto)2019-09-05 06:15:00* Test Item Value Reference Range Interpretation Comments Lymphocytes # (Auto) (test code = 22741-8) 1.3 1.0-3.2 [facility] CenterMonocytes # (Auto)2019-09-05 06:15:00* Test Item Value Reference Range Interpretation Comments Monocytes # (Auto) (test code = 742-7) 0.5 0.2-0.8 [facility] CenterEosinophils # (Auto)2019-09-05 06:15:00* Test Item Value Reference Range Interpretation Comments Eosinophils # (Auto) (test code = 711-2) 0.1 0.0-0.4 [facility] CenterBasophils # (Auto)2019-09-05 06:15:00* Test Item Value Reference Range Interpretation Comments Basophils # (Auto) (test code = 704-7) 0.0 0.0-0.1 [facility] CenterAbsolute Immature Granulocyte (auto 2019-09-05 06:15:00* Test Item Value Reference Range Interpretation Comments Absolute Immature Granulocyte (auto (liborio t code = Absolute Immature Granulocyte (auto) 0.13 0-0.1 H [facility] CenterBlood leukocytes automated count (number/volume)2019-09-05 05:35:00* Test Item Value Reference Range Interpretation Comments White Blood Count (test code = 6690-2) 12.38 4.8-10.8 [facility] CenterBlood erythrocytes automated count (number/volume)2019-09-05 05:35:00* Test Item Value Reference Range Interpretation Comments Red Blood Count (test code = 789-8) 4.44 3.6-5.1 [facility] CenterBlood hemoglobin measurement (moles/volume)2019-09-05 05:35:00* Test Item Value Reference Range Interpretation Comments Hemoglobin (test code = 00980-5) 12.4 12.0-16.0 [facility] CenterAutomated blood hematocrit (volume fraction)2019-09-05 05:35:00* Test Item Value Reference Range Interpretation Comments Hematocrit (test code = 4544-3) 40.4 34.2-44.1 [facility] CenterAutomated erythrocyte mean corpuscular jpheqm7913-03-29 05:35:00* Test Item Value Reference Range Interpretation Comments Mean Corpuscular Volume (test code = 787-2) 91.0 81-99 [facility] CenterAutomated erythrocyte mean corpuscular hemoglobin (mass per erythrocyte)2019-09-05 05:35:00* Test Item Value Reference Range Interpretation Comments Mean Corpuscular Hemoglobin (test code = 785-6) 27.9 28-32 [facility] CenterAutomated erythrocyte mean corpuscular hemoglobin concentration measurement (mass/volume)2019-09-05 05:35:00* Test Item Value Reference Range Interpretation Comments Mean Corpuscular Hemoglobin Concent (test code = 786-4) 30.7 31-35 [facility] CenterRDW YfnLc-Wat0976-61-11 05:35:00* Test Item Value Reference Range Interpretation Comments Red Cell Distribution Width (test code = 35226-1) 14.7 11.7 -14.4 [facility] CenterAutomated blood platelet count (count/volume)2019-09-05 05:35:00* Test Item Value Reference Range Interpretation Comments Platelet Count (test code = 777-3) 163 140-360 [facility] CenterAutomated blood segmented neutrophil count as percentage of total ynntkiyeup5316-94-69 05:35:00* Test Item Value Reference Range Interpretation Comments Neutrophils (%) (Auto) (test code = 92848-4) 83.4 38.7-80.0 [facility] CenterAutomated blood lymphocyte count as percentage ot total cypelykoic0470-19-58 05:35:00* Test Item Value Reference Range Interpretation Comments Lymphocytes (%) (Auto) (test code = 736-9) 10.7 18.0-39.1 [facility] CenterAutomated blood monocyte count as percentage of total rzvpecwymy8808-16-38 05:35:00* Test Item Value Reference Range Interpretation Comments Monocytes (%) (Auto) (test code = 5905-5) 4.2 4.4-11.3 [facility] CenterAutomated blood eosinophil count as percentage of total kuohqeojdh6228-77-04 05:35:00* Test Item Value Reference Range Interpretation Comments Eosinophils (%) (Auto) (test code = 713-8) 0.4 0.0-6.0 [facility] CenterAutomated blood basophil count as percentage of total fjdijhwlky8017-53-18 05:35:00* Test Item Value Reference Range Interpretation Comments Basophils (%) (Auto) (test code = 706-2) 0.2 0.0-1.0 [facility] CenterFluoroscopic procedure less than one hour tllsupxj1805-13-67 05:35:00* Test Item Value Reference Range Interpretation Comments IM GRANULOCYTES % (test code = IM GRANULOCYTES %) 1.1 0.0- 1.0 [facility] CenterAutomated blood neutrophil count 2019-09-05 05:35:00* Test Item Value Reference Range Interpretation Comments Neutrophils # (Auto) (test code = 751-8) 10.3 2.1-6.9 [facility] CenterBlood lymphocytes count (number/volume) 2019-09-05 05:35:00* Test Item Value Reference Range Interpretation Comments Lymphocytes # (Auto) (test code = 09843-7) 1.3 1.0-3.2 [facility] CenterBlood monocytes automated count (number/volume)2019-09-05 05:35:00* Test Item Value Reference Range Interpretation Comments Monocytes # (Auto) (test code = 742-7) 0.5 0.2-0.8 [facility] CenterAutomated blood eosinophil count 2019-09-05 05:35:00* Test Item Value Reference Range Interpretation Comments Eosinophils # (Auto) (test code = 711-2) 0.1 0.0-0.4 [facility] CenterAutomated blood basophil count (count/volume)2019-09-05 05:35:00* Test Item Value Reference Range Interpretation Comments Basophils # (Auto) (test code = 704-7) 0.0 0.0-0.1 [facility] CenterFluoroscopic procedure less than one hour cqyloynw2672-98-61 05:35:00* Test Item Value Reference Range Interpretation Comments Absolute Immature Granulocyte (auto (liborio t code = Absolute Immature Granulocyte (auto) 0.13 0-0.1 [facility] CenterBlood platelets count by estimate (number/volume)2019-09-05 05:35:00* Test Item Value Reference Range Interpretation Comments Platelet Estimate (test code = 33678-7) MODERATELY DECREASED [facility] CenterPlatelet jljdnyucso3777-57-66 05:35:00* Test Item Value Reference Range Interpretation Comments Platelet Morphology Comment (test code = 36366-3) FEW LARGE NO EDTA PLT CLUMPS SEENB[facility] Planoerum or plasma sodium measurement (moles/volume)2019-09-05 05:35:00* Test Item Value Reference Range Interpretation Comments Sodium Level (test code = 2951-2) 136 136-145 [facility] Planoerum or plasma potassium measurement (moles/volume)2019-09-05 05:35:00* Test Item Value Reference Range Interpretation Comments Potassium Level (test code = 2823-3) 4.2 3.5-5.1 [facility] Planoerum or plasma chloride measurement (moles/volume)2019-09-05 05:35:00* Test Item Value Reference Range Interpretation Comments Chloride Level (test code = 2075-0) 106 98-107 [facility] Planoerum or plasma carbon dioxide, total measurement (moles/volume)2019-09-05 05:35:00* Test Item Value Reference Range Interpretation Comments Carbon Dioxide Level (test code = 2028-9) 18 22-29 [facility] Planoerum or plasma anion ttt4649-87-73 05:35:00* Test Item Value Reference Range Interpretation Comments Anion Gap (test code = 59963-4) 16.2 8-16 [facility] Planoerum or plasma urea nitrogen measurement (mass/volume)2019-09-05 05:35:00* Test Item Value Reference Range Interpretation Comments Blood Urea Nitrogen (test code = 3094-0) 10 7-26 [facility]anoerum or plasma creatinine measurement (mass/volume)2019-09-05 05:35:00* Test Item Value Reference Range Interpretation Comments Creatinine (test code = 2160-0) 0.80 0.57-1.11 [facility] Planoerum or plasma urea nitrogen/creatinine mass eehcr3133-59-52 05:35:00* Test Item Value Reference Range Interpretation Comments BUN/Creatinine Ratio (test code = 3097-3) 13 6-25 [facility] CenterEstimated glomerular filtration rate (GFR) lgyhqjuhlcfwg1964-42-34 05:35:00* Test Item Value Reference Range Interpretation Comments Estimat Glomerular Filtration Rate (test code = 313600619) > 60 >60 Ranges were taken from the National Kidney Disease Education Program and the [facility] [employer] literature.Reference ranges:60 or greater: Nsavqa10-71 ( for 3 consecutive months): Chronic kidney disease 15 or less: Kidney failureCarl R. Darnall Army Medical CenterGlucose ysfifqgqlki1269-36-22 05:35:00* Test Item Value Reference Range Interpretation Comments Glucose Level (test code = QHN6485) 272 74-118 [facility]anoerum or plasma calcium measurement (mass/volume)2019-09-05 05:35:00* Test Item Value Reference Range Interpretation Comments Calcium Level (test code = 78337-1) 9.2 8.4-10.2 [facility] CenterBlood Bgiaesi8544-93-58 21:42:00* Test Item Value Reference Range Interpretation Comments Blood Culture (test code = 07366412) NO GROWTH AFTER 48 HOURS [facility] CenterTotal Svbhvnjqk3241-56-26 06:43:00* Test Item Value Reference Range Interpretation Comments Total Bilirubin (test code = 1975-2) 0.8 0.2-1.2 [facility] CenterAspartate Amino Transf (AST/SGOT) 2019-09-04 06:43:00* Test Item Value Reference Range Interpretation Comments Aspartate Amino Transf (AST/SGOT) (test code = Aspartate Amino Transf (AST/SGOT)) 13 5-34 [facility] CenterAlanine Aminotransferase (ALT/SGPT) 2019-09-04 06:43:00* Test Item Value Reference Range Interpretation Comments Alanine Aminotransferase (ALT/SGPT) (test code = 1742-6) 24 0-55 [facility] CenterTotal Eqchipr8970-47-35 06:43:00* Test Item Value Reference Range Interpretation Comments Total Protein (test code = 2885-2) 6.0 6.5-8.1 L [facility] CenterAlbumin2019-10-10 06:43:00* Test Item Value Reference Range Interpretation Comments Albumin (test code = 1751-7) 2.5 3.5-5.0 L [facility] CenterGlobulin2019-10-10 06:43:00* Test Item Value Reference Range Interpretation Comments Globulin (test code = 19957-5) 3.5 2.3-3.5 [facility] CenterAlbumin/Globulin Hqzsu5127-07-75 06:43:00 * Test Item Value Reference Range Interpretation Comments Albumin/Globulin Ratio (test code = 1759-0) 0.7 0.8-2.0 L [facility] CenterAlkaline Lnwsrhgqpad1233-13-50 06:43:00* Test Item Value Reference Range Interpretation Comments Alkaline Phosphatase (test code = 6768-6) 83 40-150 [facility] CenterTriglycerides Xnvgp6637-56-96 06:43:00* Test Item Value Reference Range Interpretation Comments Triglycerides Level (test code = 2571-8) 96 0-149 [facility] CenterCholesterol Wqrly0733-43-06 06:43:00* Test Item Value Reference Range Interpretation Comments Cholesterol Level (test code = 2093-3) 156 0-199 Less than 200 mg/dL Low Cgot080 - 239 mg/dL Borderline Fgww348 m g/dl and greater High Risk [facility] CenterLDL Mtvqrnfhstk6844-21-14 06:43:00* Test Item Value Reference Range Interpretation Comments LDL Cholesterol (test code = 2089-1) 96 60-130 [facility] CenterHDL Zdclniotizc3181-57-23 06:43:00* Test Item Value Reference Range Interpretation Comments HDL Cholesterol (test code = 2085-9) 41 40-60 [facility] CenterCholesterol/HDL Jpxih9176-57-69 06:43:00 * Test Item Value Reference Range Interpretation Comments Cholesterol/HDL Ratio (test code = 9830-1) 3.8 3.0-3.6 H [facility] CenterTotal Qmolkania7656-37-90 06:43:00* Test Item Value Reference Range Interpretation Comments Total Bilirubin (test code = 1975-2) 0.8 0.2-1.2 [facility] CenterAspartate Amino Transf (AST/SGOT) 2019-09-04 06:43:00* Test Item Value Reference Range Interpretation Comments Aspartate Amino Transf (AST/SGOT) (test code = Aspartate Amino Transf (AST/SGOT)) 13 5-34 [facility] CenterAlanine Aminotransferase (ALT/SGPT) 2019-09-04 06:43:00* Test Item Value Reference Range Interpretation Comments Alanine Aminotransferase (ALT/SGPT) (test code = 1742-6) 24 0-55 [facility] CenterTotal Oosjsuu6691-66-62 06:43:00* Test Item Value Reference Range Interpretation Comments Total Protein (test code = 2885-2) 6.0 6.5-8.1 L [facility] CenterAlbumin2019-10-10 06:43:00* Test Item Value Reference Range Interpretation Comments Albumin (test code = 1751-7) 2.5 3.5-5.0 L [facility] CenterGlobulin2019-10-10 06:43:00* Test Item Value Reference Range Interpretation Comments Globulin (test code = 32058-1) 3.5 2.3-3.5 [facility] CenterAlbumin/Globulin Wczww4595-27-80 06:43:00 * Test Item Value Reference Range Interpretation Comments Albumin/Globulin Ratio (test code = 1759-0) 0.7 0.8-2.0 L [facility] CenterAlkaline Dejetuizvpn0850-63-51 06:43:00* Test Item Value Reference Range Interpretation Comments Alkaline Phosphatase (test code = 6768-6) 83 40-150 [facility] CenterTriglycerides Sudrb1330-84-01 06:43:00* Test Item Value Reference Range Interpretation Comments Triglycerides Level (test code = 2571-8) 96 0-149 [facility] CenterCholesterol Cnbcj6035-48-61 06:43:00* Test Item Value Reference Range Interpretation Comments Cholesterol Level (test code = 2093-3) 156 0-199 Less than 200 mg/dL Low Nbza819 - 239 mg/dL Borderline Gqzc321 m g/dl and greater High Risk [facility] CenterLDL Lwhobsnishk2496-23-97 06:43:00* Test Item Value Reference Range Interpretation Comments LDL Cholesterol (test code = 2089-1) 96 60-130 [facility] CenterHDL Yqpyecowvti6920-77-36 06:43:00* Test Item Value Reference Range Interpretation Comments HDL Cholesterol (test code = 2085-9) 41 40-60 [facility] CenterCholesterol/HDL Pbnuk4920-33-54 06:43:00 * Test Item Value Reference Range Interpretation Comments Cholesterol/HDL Ratio (test code = 9830-1) 3.8 3.0-3.6 H [facility] CenterTotal Cbcedsspu2018-83-78 06:43:00* Test Item Value Reference Range Interpretation Comments Total Bilirubin (test code = 1975-2) 0.8 0.2-1.2 [facility] CenterAspartate Amino Transf (AST/SGOT) 2019-09-04 06:43:00* Test Item Value Reference Range Interpretation Comments Aspartate Amino Transf (AST/SGOT) (test code = Aspartate Amino Transf (AST/SGOT)) 13 5-34 [facility] CenterAlanine Aminotransferase (ALT/SGPT) 2019-09-04 06:43:00* Test Item Value Reference Range Interpretation Comments Alanine Aminotransferase (ALT/SGPT) (test code = 1742-6) 24 0-55 [facility] CenterTotal Coteela8584-79-82 06:43:00* Test Item Value Reference Range Interpretation Comments Total Protein (test code = 2885-2) 6.0 6.5-8.1 L [facility] CenterAlbumin2019-10-10 06:43:00* Test Item Value Reference Range Interpretation Comments Albumin (test code = 1751-7) 2.5 3.5-5.0 L [facility] CenterGlobulin2019-10-10 06:43:00* Test Item Value Reference Range Interpretation Comments Globulin (test code = 44883-6) 3.5 2.3-3.5 [facility] CenterAlbumin/Globulin Wfuzk3672-80-46 06:43:00 * Test Item Value Reference Range Interpretation Comments Albumin/Globulin Ratio (test code = 1759-0) 0.7 0.8-2.0 L [facility] CenterAlkaline Kwcstmbgrxd9230-37-85 06:43:00* Test Item Value Reference Range Interpretation Comments Alkaline Phosphatase (test code = 6768-6) 83 40-150 [facility] CenterTriglycerides Busbt2920-69-15 06:43:00* Test Item Value Reference Range Interpretation Comments Triglycerides Level (test code = 2571-8) 96 0-149 [facility] CenterCholesterol Gibgv1462-76-09 06:43:00* Test Item Value Reference Range Interpretation Comments Cholesterol Level (test code = 2093-3) 156 0-199 Less than 200 mg/dL Low Icxw923 - 239 mg/dL Borderline Nalp872 m g/dl and greater High Risk [facility] CenterLDL Kneqbnktxlb1611-71-66 06:43:00* Test Item Value Reference Range Interpretation Comments LDL Cholesterol (test code = 2089-1) 96 60-130 [facility] CenterHDL Fxxhspotmzi3618-38-22 06:43:00* Test Item Value Reference Range Interpretation Comments HDL Cholesterol (test code = 2085-9) 41 40-60 [facility] CenterCholesterol/HDL Xyemk3471-63-63 06:43:00 * Test Item Value Reference Range Interpretation Comments Cholesterol/HDL Ratio (test code = 9830-1) 3.8 3.0-3.6 H [facility] CenterT[facility] Xuabljrtw7009-60-53 06:43:00* Test Item Value Reference Range Interpretation Comments Total Bilirubin (test code = 1975-2) 0.8 0.2-1.2 [facility] CenterAspartate Amino Transf (AST/SGOT) 2019-09-04 06:43:00* Test Item Value Reference Range Interpretation Comments Aspartate Amino Transf (AST/SGOT) (test code = Aspartate Amino Transf (AST/SGOT)) 13 5-34 [facility] CenterAlanine Aminotransferase (ALT/SGPT) 2019-09-04 06:43:00* Test Item Value Reference Range Interpretation Comments Alanine Aminotransferase (ALT/SGPT) (test code = 1742-6) 24 0-55 [facility] CenterTotal Wfbqeto8460-88-33 06:43:00* Test Item Value Reference Range Interpretation Comments Total Protein (test code = 2885-2) 6.0 6.5-8.1 L [facility] CenterAlbumin2019-10-10 06:43:00* Test Item Value Reference Range Interpretation Comments Albumin (test code = 1751-7) 2.5 3.5-5.0 L [facility] CenterGlobulin2019-10-10 06:43:00* Test Item Value Reference Range Interpretation Comments Globulin (test code = 60776-3) 3.5 2.3-3.5 [facility] CenterAlbumin/Globulin Hfisn5250-14-99 06:43:00 * Test Item Value Reference Range Interpretation Comments Albumin/Globulin Ratio (test code = 1759-0) 0.7 0.8-2.0 L [facility] CenterAlkaline Lkbbjqddfgf2023-21-62 06:43:00* Test Item Value Reference Range Interpretation Comments Alkaline Phosphatase (test code = 6768-6) 83 40-150 [facility] CenterTriglycerides Zxttc8602-33-14 06:43:00* Test Item Value Reference Range Interpretation Comments Triglycerides Level (test code = 2571-8) 96 0-149 [facility] CenterCholesterol Pkapp5893-56-57 06:43:00* Test Item Value Reference Range Interpretation Comments Cholesterol Level (test code = 2093-3) 156 0-199 Less than 200 mg/dL Low Njmf689 - 239 mg/dL Borderline Wulg858 m g/dl and greater High Risk [facility] CenterLDL Qessklpdoxy0384-29-79 06:43:00* Test Item Value Reference Range Interpretation Comments LDL Cholesterol (test code = 2089-1) 96 60-130 [facility] CenterHDL Mzmqktfsojk1319-14-65 06:43:00* Test Item Value Reference Range Interpretation Comments HDL Cholesterol (test code = 2085-9) 41 40-60 [facility] CenterCholesterol/HDL Jllmh6994-46-10 06:43:00 * Test Item Value Reference Range Interpretation Comments Cholesterol/HDL Ratio (test code = 9830-1) 3.8 3.0-3.6 H [facility] CenterHemoglobin A1c Oamowmi3070-83-61 06:40:00 * Test Item Value Reference Range Interpretation Comments Hemoglobin A1c Percent (test code = Hemoglobin A1c Percent) 6.2 4.0-7.0 [facility] CenterHemoglobin A1c Neawufo1615-52-06 06:40:00 * Test Item Value Reference Range Interpretation Comments Hemoglobin A1c Percent (test code = Hemoglobin A1c Percent) 6.2 4.0-7.0 [facility] CenterHemoglobin A1c Jnwtitt8728-46-25 06:40:00 * Test Item Value Reference Range Interpretation Comments Hemoglobin A1c Percent (test code = Hemoglobin A1c Percent) 6.2 4.0-7.0 [facility] CenterHemoglobin A1c Hojtyrq3770-35-52 06:40:00 * Test Item Value Reference Range Interpretation Comments Hemoglobin A1c Percent (test code = Hemoglobin A1c Percent) 6.2 4.0-7.0 [facility] CenterFluoroscopic procedure less than one hour yjtxadcl8216-73-45 06:10:00* Test Item Value Reference Range Interpretation Comments Hemoglobin A1c Percent (test code = Hemoglobin A1c Percent) 6.2 4.0-7.0 [facility]um [facility] plasma total bilirubin measurement (mass/volume)2019-09-04 06:10:00* Test Item Value Reference Range Interpretation Comments Total Bilirubin (test code = 1975-2) 0.8 0.2-1.2 [facility] CenterFluoroscopic procedure less than one hour ygegmaoj4380-45-93 06:10:00* Test Item Value Reference Range Interpretation Comments Aspartate Amino Transf (AST/SGOT) (test code = Aspartate Amino Transf (AST/SGOT)) 13 5-34 [facility]anoerum or plasma alanine aminotransferase measurement (enzymatic activity/volume)2019-09-04 06:10:00* Test Item Value Reference Range Interpretation Comments Alanine Aminotransferase (ALT/SGPT) (test code = 1742-6) 24 0-55 [facility]anoerum or plasma protein measurement (mass/volume)2019-09-04 06:10:00* Test Item Value Reference Range Interpretation Comments Total Protein (test code = 2885-2) 6.0 6.5-8.1 [facility]anoerum or plasma albumin measurement (mass/volume)2019-09-04 06:10:00* Test Item Value Reference Range Interpretation Comments Albumin (test code = 1751-7) 2.5 3.5-5.0 [facility] CenterPlasma globulin measurement (mass/volume) 2019-09-04 06:10:00* Test Item Value Reference Range Interpretation Comments Globulin (test code = 66031-4) 3.5 2.3-3.5 [facility]anoerum or plasma albumin/globulin mass kzkcx5721-06-46 06:10:00* Test Item Value Reference Range Interpretation Comments Albumin/Globulin Ratio (test code = 1759-0) 0.7 0.8-2.0 [facility]anoerum or plasma alkaline phosphatase measurement (enzymatic activity/volume)2019-09-04 06:10:00* Test Item Value Reference Range Interpretation Comments Alkaline Phosphatase (test code = 6768-6) 83 40-150 [facility]anoerum or plasma triglyceride measurement (mass/volume)2019-09-04 06:10:00* Test Item Value Reference Range Interpretation Comments Triglycerides Level (test code = 2571-8) 96 0-149 [facility]anoerum or plasma cholesterol measurement (mass/volume)2019-09-04 06:10:00* Test Item Value Reference Range Interpretation Comments Cholesterol Level (test code = 2093-3) 156 0-199 Less than 200 mg/dL Low Leri143 - 239 mg/dL Borderline Oryw191 m g/dl and greater High Risk [facility]anoerum or plasma cholesterol in LDL measurement (mass/volume) 2019-09-04 06:10:00* Test Item Value Reference Range Interpretation Comments LDL Cholesterol (test code = 2089-1) 96 60-130 [facility]anoerum or plasma cholesterol in HDL measurement (mass/volume)2019-09-04 06:10:00* Test Item Value Reference Range Interpretation Comments HDL Cholesterol (test code = 2085-9) 41 40-60 [facility]anoerum or plasma total cholesterol/cholesterol in HDL mass pzcng0624-48-71 06:10:00* Test Item Value Reference Range Interpretation Comments Cholesterol/HDL Ratio (test code = 9830-1) 3.8 3.0-3.6 [facility] CenterProthrombin Hqph9919-40-59 07:23:00* Test Item Value Reference Range Interpretation Comments Prothrombin Time (test code = 5902-2) 13.4 11.9-14.5 [facility] CenterProthromb Time International Ratio 2019-09-03 07:23:00* Test Item Value Reference Range Interpretation Comments Prothromb Time International Ratio (test code = 6301-6) 0.97 Oral Anticoagulant Therapy INR Values:1. Low Intensity Therapy 1.5 - 2.02 . Moderate Intensity Therapy 2.0 - 3.03. High Intensity Therapy(1) 2.5 - 3. 54. High Intensity Therapy(2) 3.0 - 4.05. Panic Value INR > 5.0 [facility] CenterActivated Partial Thromboplast Time 2019-09-03 07:23:00* Test Item Value Reference Range Interpretation Comments Activated Partial Thromboplast Time (test code = 11575-5) 31.5 23.8-35.5 [facility] CenterProthrombin Qmys0748-12-12 07:23:00* Test Item Value Reference Range Interpretation Comments Prothrombin Time (test code = 5902-2) 13.4 11.9-14.5 [facility] CenterProthromb Time International Ratio 2019-09-03 07:23:00* Test Item Value Reference Range Interpretation Comments Prothromb Time International Ratio (test code = 6301-6) 0.97 Oral Anticoagulant Therapy INR Values:1. Low Intensity Therapy 1.5 - 2.02 . Moderate Intensity Therapy 2.0 - 3.03. High Intensity Therapy(1) 2.5 - 3. 54. High Intensity Therapy(2) 3.0 - 4.05. Panic Value INR > 5.0 [facility] CenterActivated Partial Thromboplast Time 2019-09-03 07:23:00* Test Item Value Reference Range Interpretation Comments Activated Partial Thromboplast Time (test code = 49327-6) 31.5 23.8-35.5 [facility] CenterProthrombin Mkuu7042-54-88 07:23:00* Test Item Value Reference Range Interpretation Comments Prothrombin Time (test code = 5902-2) 13.4 11.9-14.5 [facility] CenterProthromb Time International Ratio 2019-09-03 07:23:00* Test Item Value Reference Range Interpretation Comments Prothromb Time International Ratio (test code = 6301-6) 0.97 Oral Anticoagulant Therapy INR Values:1. Low Intensity Therapy 1.5 - 2.02 . Moderate Intensity Therapy 2.0 - 3.03. High Intensity Therapy(1) 2.5 - 3. 54. High Intensity Therapy(2) 3.0 - 4.05. Panic Value INR > 5.0 [facility] CenterActivated Partial Thromboplast Time 2019-09-03 07:23:00* Test Item Value Reference Range Interpretation Comments Activated Partial Thromboplast Time (test code = 57682-6) 31.5 23.8-35.5 [facility] CenterProthrombin Yqtf9019-92-82 07:23:00* Test Item Value Reference Range Interpretation Comments Prothrombin Time (test code = 5902-2) 13.4 11.9-14.5 [facility] CenterProthromb Time International Ratio 2019-09-03 07:23:00* Test Item Value Reference Range Interpretation Comments Prothromb Time International Ratio (test code = 6301-6) 0.97 Oral Anticoagulant Therapy INR Values:1. Low Intensity Therapy 1.5 - 2.02 . Moderate Intensity Therapy 2.0 - 3.03. High Intensity Therapy(1) 2.5 - 3. 54. High Intensity Therapy(2) 3.0 - 4.05. Panic Value INR > 5.0 [facility] CenterActivated Partial Thromboplast Time 2019-09-03 07:23:00* Test Item Value Reference Range Interpretation Comments Activated Partial Thromboplast Time (test code = 73922-4) 31.5 23.8-35.5 [facility] CenterProthrombin time (PT) in platelet poor plasma by coagulation yqeat7402-29-75 06:28:00* Test Item Value Reference Range Interpretation Comments Prothrombin Time (test code = 5902-2) 13.4 11.9-14.5 [facility] CenterINR in Platelet poor plasma by Coagulation gpdqm9808-31-55 06:28:00* Test Item Value Reference Range Interpretation Comments Prothromb Time International Ratio (test code = 6301-6) 0.97 Oral Anticoagulant Therapy INR Values:1. Low Intensity Therapy 1.5 - 2.02 . Moderate Intensity Therapy 2.0 - 3.03. High Intensity Therapy(1) 2.5 - 3. 54. High Intensity Therapy(2) 3.0 - 4.05. Panic Value INR > 5.0 [facility] CenterActivated partial thromboplastin time (aPTT) in platelet poor plasma by coagulation zblkg8847-95-50 06:28:00* Test Item Value Reference Range Interpretation Comments Activated Partial Thromboplast Time (test code = 76026-8) 31.5 23.8-35.5 [facility] QUDRCDXA-CLST4544-78-08 23:15:00 [facility] [address] [address] Patient Name: SHERRIE ABDULLAHI MR #: [id number] : 1980 Age/Sex: 39/F Req #: [id number] Adm Physician: Ordered by: UMBERTO DRIVER MD Report #: [id number] Location: [facility] Room/Bed: Procedure: 1008-001 0 HOPD/CT ABD/PEL WITH [...] UMBERTO SHEFFIELD MD CXR 2 VIEW - CZSW9290-98-50 23:11:00 [address] [place] [address] Patient Name: SHERRIE ABDULLAHI MR #: [id number] : 1980 Age/Sex: 39/F Req #: [id number] Adm Physician: Ordered by: UMBERTO DRIVER MD Report #: [id number] Location: [facility] Room/Bed: Procedure: 1008-001 1 HOPD/CXR 2 VIEW [...] on 09/02/2019 11:12 PM Dictated By: KANCHAN SANTIAGO MD, MD Electronica ll Signed By: KANCHAN SANTIAGO MD, MD on 09/02/192311 Transcribed By: BOGDAN on 09/02/192311 COPY TO: UMBERTO DRIVER MD Lactic Acid Level 2019-09-02 21:58:00* Test Item Value Reference Range Interpretation Comments Lactic Acid Level (test code = Lactic Acid Level) 17.2 4.5- 19.8 [facility] CenterLactic Acid Umggm3593-12-37 21:58:00* Test Item Value Reference Range Interpretation Comments Lactic Acid Level (test code = Lactic Acid Level) 17.2 4.5- 19.8 [facility] CenterLactic Acid Ehbiz4932-50-08 21:58:00* Test Item Value Reference Range Interpretation Comments Lactic Acid Level (test code = Lactic Acid Level) 17.2 4.5- 19.8 [facility] CenterLactic Acid Othhx4703-62-50 21:58:00* Test Item Value Reference Range Interpretation Comments Lactic Acid Level (test code = Lactic Acid Level) 17.2 4.5- 19.8 [facility] CenterFluoroscopic procedure less than one hour mkaobejq6552-62-86 21:25:00* Test Item Value Reference Range Interpretation Comments Lactic Acid Level (test code = Lactic Acid Level) 17.2 4.5- 19.8 [facility] CenterBlood qidmfnt3274-75-95 21:25:00* Test Item Value Reference Range Interpretation Comments Blood Culture (test code = 55532045) NO GROWTH AFTER 5 DAYS, FINAL REPORT [facility] CenterCT ABDOMEN/PELVIS [id number] 05:12:00 [facility] [address] [address] Patient Name: SHERRIE ABDULLAHI MR #: [id number] DO B: 1980 Age/Sex: 38/F Req #: [id number] Adm Physici an: Ordered by: CRISTINA POWELL MD Report #: [id number] Location: ER Room/Bed: Procedure: [id number] CT/CT ABDOMEN/PELVIS W Exam Date: 08/30/18 Exam [...] Color (test code = 5778-6) YELLOW YELLOW [facility] CenterUrine Ulpdjnr8228-05-30 04:03:00* Test Item Value Reference Range Interpretation Comments Urine Clarity (test code = 03320-7) CLEAR CLEAR [facility] CenterUrine Specific Gjxytkw0063-13-27 04:03:00 * Test Item Value Reference Range Interpretation Comments Urine Specific Keiser (test code = 5811-5) 1.030 1.010-1.02 5 H [facility] CenterUrine mJ3994-54-27 04:03:00* Test Item Value Reference Range Interpretation Comments Urine pH (test code = 92664-9) 6 5-7 [facility] CenterUrine Leukocyte Kltpqbpo8776-47-60 04:03:00* Test Item Value Reference Range Interpretation Comments Urine Leukocyte Esterase (test code = 5799-2) NEGATIVE NEGATIVE [facility] CenterUrine Twfxznz4950-95-86 04:03:00* Test Item Value Reference Range Interpretation Comments Urine Nitrite (test code = 70111-1) NEGATIVE NEGATIVE [facility] CenterUrine Pfqlblq8016-59-87 04:03:00* Test Item Value Reference Range Interpretation Comments Urine Protein (test code = 5804-0) TRACE NEGATIVE H [facility] CenterUrine Glucose (UA)2018-08-30 04:03:00* Test Item Value Reference Range Interpretation Comments Urine Glucose (UA) (test code = 2349-9) NEGATIVE NEGATIVE [facility] CenterUrine Xhjztdn2087-66-43 04:03:00* Test Item Value Reference Range Interpretation Comments Urine Ketones (test code = 26690-7) NEGATIVE NEGATIVE [facility] Uiktaxoihtxq3061-97-73 04:03:00* Test Item Value Reference Range Interpretation Comments Urine Urobilinogen (test code = 08306-3) 0.2 0.2-1 [facility] Ygcndryif8431-97-81 04:03:00* Test Item Value Reference Range Interpretation Comments Urine Bilirubin (test code = 1978-6) NEGATIVE NEGATIVE [facility] Xkufu0319-93-22 04:03:00* Test Item Value Reference Range Interpretation Comments Urine Blood (test code = 75862-3) NEGATIVE NEGATIVE [facility] CenterUrine DZP8779-82-82 04:03:00* Test Item Value Reference Range Interpretation Comments Urine WBC (test code = 5821-4) 0-5 0-5 [facility] CenterUrine UID2115-90-11 04:03:00* Test Item Value Reference Range Interpretation Comments Urine RBC (test code = 75172-1) 0-5 0-5 [facility] Qkobmicd1254-36-37 04:03:00* Test Item Value Reference Range Interpretation Comments Urine Bacteria (test code = 70438-8) FEW NONE [facility] CenterUrine Epithelial Xtanx8002-45-94 04:03:00 * Test Item Value Reference Range Interpretation Comments Urine Epithelial Cells (test code = 95040-6) MODERATE NONE [facility] CenterUrine Ngmqz6767-23-89 04:03:00* Test Item Value Reference Range Interpretation Comments Urine Mucus (test code = 8247-9) FEW RARE H [facility] Keik4342-89-29 04:03:00* Test Item Value Reference Range Interpretation Comments Urine Test (test code = 2106-3) NEGATIVE NEGATIVE [facility] Planoodium Wbbke5963-75-23 03:33:00* Test Item Value Reference Range Interpretation Comments Sodium Level (test code = 2951-2) 138 136-145 [facility] CenterPotassium Batwa6373-83-57 03:33:00* Test Item Value Reference Range Interpretation Comments Potassium Level (test code = 2823-3) 3.9 3.5-5.1 [facility] CenterChloride Zgoty9716-97-81 03:33:00* Test Item Value Reference Range Interpretation Comments Chloride Level (test code = 2075-0) 104 98-107 [facility] CenterCarbon Dioxide Rrzri4802-01-08 03:33:00* Test Item Value Reference Range Interpretation Comments Carbon Dioxide Level (test code = 2028-9) 22 22-29 [facility] CenterAnion Huo0311-57-98 03:33:00* Test Item Value Reference Range Interpretation Comments Anion Gap (test code = 91157-8) 15.9 8-16 [facility] CenterBlood Urea Ewfatwvh6542-56-88 03:33:00* Test Item Value Reference Range Interpretation Comments Blood Urea Nitrogen (test code = 3094-0) 14 7-26 [facility] CenterCreatinine2018-10-05 03:33:00* Test Item Value Reference Range Interpretation Comments Creatinine (test code = 2160-0) 0.92 0.57-1.11 [facility] CenterBUN/Creatinine Ngbfj2492-70-12 03:33:00* Test Item Value Reference Range Interpretation Comments BUN/Creatinine Ratio (test code = 3097-3) 15 6-25 [facility] CenterEstimat Glomerular Filtration Rate 2018-08-30 03:33:00* Test Item Value Reference Range Interpretation Comments Estimat Glomerular Filtration Rate (test code = 807446525) 60- >60 Ranges were taken from the National Kidney Disease Education Program and the [facility] [employer] literature.Reference ranges:60 or greater: Emgmvn25-87 ( for 3 consecutive months): Chronic kidney disease 15 or less: Kidney failureCarl R. Darnall Army Medical CenterGlucose Phsnz1059-94-75 03:33:00* Test Item Value Reference Range Interpretation Comments Glucose Level (test code = AKO2411) 144 74-118 H [facility] CenterCalcium Anjjw5185-40-65 03:33:00* Test Item Value Reference Range Interpretation Comments Calcium Level (test code = 56874-5) 9.5 8.4-10.2 [facility] CenterTotal Wfutscnul3699-31-05 03:33:00* Test Item Value Reference Range Interpretation Comments Total Bilirubin (test code = 1975-2) 0.7 0.2-1.2 [facility] CenterAspartate Amino Transf (AST/SGOT) 2018-08-30 03:33:00* Test Item Value Reference Range Interpretation Comments Aspartate Amino Transf (AST/SGOT) (test code = Aspartate Amino Transf (AST/SGOT)) 18 5-34 [facility] CenterAlanine Aminotransferase (ALT/SGPT) 2018-08-30 03:33:00* Test Item Value Reference Range Interpretation Comments Alanine Aminotransferase (ALT/SGPT) (test code = 1742-6) 42 0-55 [facility] CenterTotal Jihtfvb2274-18-16 03:33:00* Test Item Value Reference Range Interpretation Comments Total Protein (test code = 2885-2) 8.0 6.5-8.1 [facility] CenterAlbumin2018-10-05 03:33:00* Test Item Value Reference Range Interpretation Comments Albumin (test code = 1751-7) 3.8 3.5-5.0 [facility] CenterGlobulin2018-10-05 03:33:00* Test Item Value Reference Range Interpretation Comments Globulin (test code = 04554-3) 4.2 2.3-3.5 H [facility] CenterAlbumin/Globulin Irzte8360-86-41 03:33:00 * Test Item Value Reference Range Interpretation Comments Albumin/Globulin Ratio (test code = 1759-0) 0.9 0.8-2.0 [facility] CenterAlkaline Iyfgmmcflms3705-32-74 03:33:00* Test Item Value Reference Range Interpretation Comments Alkaline Phosphatase (test code = 6768-6) 100 40-150 [facility] CenterAmylase Hudso3026-96-33 03:33:00* Test Item Value Reference Range Interpretation Comments Amylase Level (test code = 1798-8) 62 25-125 [facility] CenterLipase2018-10-05 03:33:00* Test Item Value Reference Range Interpretation Comments Lipase (test code = 3040-3) 29 8-78 [facility] CenterWhite Blood Lgbjj7782-66-53 03:17:00* Test Item Value Reference Range Interpretation Comments White Blood Count (test code = 6690-2) 17.12 4.8-10.8 H [facility] CenterRed Blood Glasz9958-35-58 03:17:00* Test Item Value Reference Range Interpretation Comments Red Blood Count (test code = 789-8) 5.16 3.6-5.1 H [facility] CenterHemoglobin2018-10-05 03:17:00* Test Item Value Reference Range Interpretation Comments Hemoglobin (test code = 03644-4) 14.6 12.0-16.0 [facility] CenterHematocrit2018-10-05 03:17:00* Test Item Value Reference Range Interpretation Comments Hematocrit (test code = 4544-3) 45.1 34.2-44.1 H [facility] CenterMean Corpuscular Fckxmn6128-21-25 03:17:00* Test Item Value Reference Range Interpretation Comments Mean Corpuscular Volume (test code = 787-2) 87.4 81-99 [facility] CenterMean Corpuscular Nhviumtlyn4645-38-50 03:17:00* Test Item Value Reference Range Interpretation Comments Mean Corpuscular Hemoglobin (test code = 785-6) 28.3 28-32 [facility] Hemoglobin Concent 2018-08-30 03:17:00* Test Item Value Reference Range Interpretation Comments Mean Corpuscular Hemoglobin Concent (test code = 786-4) 32.4 31-35 [facility] CenterRed Cell Distribution Djsbd6408-42-83 03:17:00* Test Item Value Reference Range Interpretation Comments Red Cell Distribution Width (test code = 96435-1) 14.1 11.7 -14.4 [facility] CenterPlatelet Vdxdw8608-63-00 03:17:00* Test Item Value Reference Range Interpretation Comments Platelet Count (test code = 777-3) 326 140-360 [facility] CenterNeutrophils (%) (Auto)2018-08-30 03:17:00 * Test Item Value Reference Range Interpretation Comments Neutrophils (%) (Auto) (test code = 43095-0) 79.4 38.7-80.0 [facility] CenterLymphocytes (%) (Auto)2018-08-30 03:17:00 * Test Item Value Reference Range Interpretation Comments Lymphocytes (%) (Auto) (test code = 736-9) 15.0 18.0-39.1 L [facility] CenterMonocytes (%) (Auto)2018-08-30 03:17:00* Test Item Value Reference Range Interpretation Comments Monocytes (%) (Auto) (test code = 5905-5) 3.2 4.4-11.3 L [facility] CenterEosinophils (%) (Auto)2018-08-30 03:17:00 * Test Item Value Reference Range Interpretation Comments Eosinophils (%) (Auto) (test code = 713-8) 1.7 0.0-6.0 [facility] CenterBasophils (%) (Auto)2018-08-30 03:17:00* Test Item Value Reference Range Interpretation Comments Basophils (%) (Auto) (test code = 706-2) 0.3 0.0-1.0 [facility] CenterIM GRANULOCYTES %2018-08-30 03:17:00* Test Item Value Reference Range Interpretation Comments IM GRANULOCYTES % (test code = IM GRANULOCYTES %) 0.4 0.0- 1.0 [facility] CenterNeutrophils # (Auto)2018-08-30 03:17:00* Test Item Value Reference Range Interpretation Comments Neutrophils # (Auto) (test code = 751-8) 13.6 2.1-6.9 H [facility] CenterLymphocytes # (Auto)2018-08-30 03:17:00* Test Item Value Reference Range Interpretation Comments Lymphocytes # (Auto) (test code = 99814-5) 2.6 1.0-3.2 [facility] CenterMonocytes # (Auto)2018-08-30 03:17:00* Test Item Value Reference Range Interpretation Comments Monocytes # (Auto) (test code = 742-7) 0.5 0.2-0.8 [facility] CenterEosinophils # (Auto)2018-08-30 03:17:00* Test Item Value Reference Range Interpretation Comments Eosinophils # (Auto) (test code = 711-2) 0.3 0.0-0.4 [facility] CenterBasophils # (Auto)2018-08-30 03:17:00* Test Item Value Reference Range Interpretation Comments Basophils # (Auto) (test code = 704-7) 0.1 0.0-0.1 [facility] CenterAbsolute Immature Granulocyte (auto 2018-08-30 03:17:00* Test Item Value Reference Range Interpretation Comments Absolute Immature Granulocyte (auto (liborio t code = Absolute Immature Granulocyte (auto) 0.06 0-0.1 [facility]
[2020-08-27] MEDS ORDERED: SODIUM CHLORIDE 0.9% 1000ML 1,000 ML ONE (18:59)
[2020-08-27] MEDS ORDERED: KETOROLAC TROMETHAMINE 30 MG/ML VIAL ONE (18:59)
[2020-08-27] MEDS ORDERED: ONDANSETRON HCL INJ 2MG/ML 2ML 2 MG/ML VIAL ONE (18:59)
--- NOTE | 2020-08-27 20:03 | Diagnostic Imaging Report ---
EXAM: CT Abdomen and Pelvis WITHOUT contrast INDICATION: Abdominal pain. Nausea. COMPARISON: 09/02/2019. TECHNIQUE: Abdomen and pelvis were scanned utilizing a multidetector helical scanner from the lung base to the pubic symphysis without administration of IV contrast. Absence of intravenous contrast decreases sensitivity for detection of focal lesions and vascular pathology. Coronal and sagittal reformations were obtained. Routine protocol was performed. IV CONTRAST: None. ORAL CONTRAST: Water RADIATION DOSE: Total DLP: 1074.57 mGy*cm Estimated effective dose: (DLP x 0.015 x size factor) mSv COMPLICATIONS: None FINDINGS: LINES and TUBES: None. LOWER THORAX: Unremarkable HEPATOBILIARY: The liver is diffuse hypodense compared to the spleen, consistent with diffuse hepatic diffuse hepatic steatosis. No focal hepatic lesions. No biliary ductal dilation. GALLBLADDER: There are cholecystectomy clips. SPLEEN: No splenomegaly. PANCREAS: No focal masses or ductal dilatation. ADRENALS: No adrenal nodules KIDNEYS/URETERS: No hydronephrosis. No cystic or solid mass lesions. No stones. GI TRACT: No abnormal distention, wall thickening, or evidence of bowel obstruction. Appendix is not clearly identified, however, no acute appendicitis. PELVIC ORGANS/BLADDER: Bilateral tubal ligation clips. LYMPH NODES: No lymphadenopathy. VESSELS: Unremarkable. PERITONEUM / RETROPERITONEUM: No free air or fluid. BONES: There are degenerative changes in the lumbar spine particularly at L4-L5 and L5-S1 with bilateral neuroforaminal narrowing. 2.0 cm loculated fluid collection on sagittal image 84 may represent a subcutaneous lipoma or a supra umbilical fat containing hernia with the hernia defect percent not clearly identified. SOFT TISSUES: Lobulated soft tissue attenuation again observed in the umbilical region as seen on image 75 series 2, unchanged. IMPRESSION: 1. No acute abdominal pelvic abnormality. Signed by: Dr. Anila Richardson M.D. on 08/27/2020 8:00 PM
[2020-08-27] MEDS ORDERED: CEFTRIAXONE SOD 1 GM VIAL IM ONE (20:30)
[2020-08-27] MEDS ORDERED: CEFTRIAXONE SOD 1 GM VIAL ONE (20:40)
--- NOTE | 2020-08-27 21:06 | Emergency Department Note ---
History of Present Illnes History of Present Illness Chief Complaint: Skin Rash or Abscess History of Present Illness This is a 40 year old female Chief Complaint Comment PT C/O PAINFUL BLISTER TO THE BACK OF HER NECK THAT MANIFESTED TODAY, FOR PAST 3 DAYS, PT STATES HAS BEEN FEELING "ILL"; GEN MALIAISE, NAUSEA, AND BODY ACHES, DENIES FEVER. 2 DAYS AGO STARTED TO FEEL SOME DISCOMFORT/PAIN TO THE AREA THAT TURNED INTO A BLISTER TODAY. 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 . Historian: Patient Arrival Mode: Car Onset (how long ago): day(s) (2) Location: abdominal pain myalgia Quality: dull Radiation: Denies non-radiation, Denies back, Denies neck, Denies extremity, Denies abdomen, Denies periumbilical, Denies flank, Denies proximal, Denies distal, Denies other Severity: moderate Onset quality: gradual Duration (how long): day(s) (2) Timing of current episode: constant Progression: waxing and waning Chronicity: new Context: Denies recent illness, Denies recent surgery, Denies recent immobilization, Denies recent travel, Denies trauma/injury, Denies new medications, Denies hx of DVT/PE, Denies non-compliance w/ medications, Denies other Relieving factors: none Exacerbating factors: none Associated symptoms: Denies denies other symptoms, Denies confusion, Denies chest pain, Denies cough, Denies diaphoresis, Denies fever/chills, Denies headaches, Denies loss of appetite, Denies malaise, Denies nausea/vomiting, Denies rash, Denies seizure, Denies shortness of breath, Denies syncope, Denies weakness, Denies other Treatments prior to arrival: none Past Medical/Family History Physician Review I have reviewed the patient's past medical and family history. Any updates have been documented here. Past Medical History Recent Fever: No Clinical Suspicion of Infectio: No New/Unexplained Change in Ment: No Past Medical History: None Past Surgical History: Cholecysctectomy, Tubal Ligation, , Hernia Re pair, Orthopedic Implants Other Surgery: right finger has screws placed Social History Smoking Cessation: Current every day smoker Counseling Performed: Yes Alcohol Use: None Any Illegal Drug Use: No Physically hurt or threatened: No Other Last Tetanus: 2011 Any Pre-Existing Lines (PICC,: Yes Review of Systems Review of Systems Constitutional: Reports no symptoms, Reports weakness EENTM: Reports no symptoms Cardiovascular: Reports no symptoms Respiratory: Reports no symptoms Gastrointestinal: Reports as per HPI Genitourinary: Reports no symptoms Musculoskeletal: Reports no symptoms Integumentary: Reports no symptoms Neurological: Reports no symptoms Psychological: Reports no symptoms Endocrine: Reports no symptoms Hematological/Lymphatic: Reports no symptoms Physical Exam Related Data Allergies: Coded Allergies: vancomycin (Verified Allergy, Intermediate, 04/28/20) Sulfa (Sulfonamide Antibiotics) (Verified Allergy, Unknown, 02/07/17) rifampin (Verified Allergy, Unknown, 02/07/17) Triage Vital Signs Vital Signs Date Time Temp Pulse Resp B/P (MAP) Pulse Ox O2 Delivery O2 Flow Rate FiO2 08/27/20 18:30 97.8 77 20 165/95 98 Room Air Vital signs reviewed: Yes Physical Exam CONSTITUTIONAL Constitutional: Present well-developed, Present well-nourished HENT HENT: Present normocephalic, Present atraumatic, Present oropharynx clear/moist, Present nose normal HENT L/R: Present left ext ear normal, Present right ext ear normal EYES Eyes: Reports PERRL, Reports conjunctivae normal NECK Neck: Present ROM normal PULMONARY Pulmonary: Present effort normal, Present breath sounds normal CARDIOVASCULAR Cardiovascular: Present regular rhythm, Present heart sounds normal, Present capillary refill normal, Present normal rate GASTROINTESTINAL Abdominal: Present soft, Present bowel sounds normal, Present tender GENITOURINARY Genitourinary: Present exam deferred SKIN Skin: Present warm, Present dry MUSCULOSKELETAL Musculoskeletal: Present ROM normal NEUROLOGICAL Neurological: Present alert, Present oriented x 3, Present no gross motor or sensory deficits PSYCHOLOGICAL Psychological: Present mood/affect normal, Present judgement normal Results Laboratory Laboratory Laboratory Tests Test 08/27/20 19:20 Lab results reviewed: Yes Imaging Imaging results reviewed: Yes Assessment & Plan Medical Decision Making MDM gastritis flu Reassessment Reassessment time: 21:06 Reassessment better Assessment & Plan Final Impression: (1) Abdominal pain (2) Dehydration (3) Flu (4) UTI (urinary tract infection) Depart Disposition: HOME, SELF-CARE Last Vital Signs Date Time Temp Pulse Resp B/P (MAP) Pulse Ox O2 Delivery O2 Flow Rate FiO2 08/27/20 18:30 97.8 77 20 165/95 98 Room Air Home Meds Active Scripts Cefdinir (OMNICEF) 300 Mg Capsule, 300 MG PO BID, #10 CAP Prov:PRAVEEN SOLORZANO MD 08/27/20 Oseltamivir Phosphate (TAMIFLU) 75 Mg Cap, 75 MG PO BID, #10 CAP Prov:PRAVEEN SOLORZANO MD 08/27/20 Tramadol Hcl (ULTRAM) 50 Mg Tablet, 1-2 TAB PO Q6H for pain, #20 TAB 0 Refills Prov:TROY SANDOVAL MD 04/28/20 Tramadol Hcl (ULTRAM) 50 Mg Tablet, 1-2 TAB PO Q6H PRN for pain, #20 TAB 0 Refills Prov:TROY SANDOVAL MD 04/28/20 Medications in the ED Ondansetron HCl 4 mg NOW STAT IV Last administered on 08/27/20at 18:50; Admin Dose 4 MG; Start 08/27/20 at 18:35; Stop 08/27/20 at 18:48; Status DC Ketorolac Tromethamine 15 mg ONCE STAT IV Last administered on 08/27/20at 18:50; Admin Dose 15 MG; Start 08/27/20 at 18:35; Stop 08/27/20 at 18:48; Status DC Sodium Chloride 1,000 ml @ 0 mls/hr Q0M STAT IV Last administered on 08/27/20at 18:50; Admin Dose 999 MLS/HR; Start 08/27/20 at 18:35; Stop 08/27/20 at 18:39; Status DC Ketorolac Tromethamine 30 mg STK-MED ONCE .ROUTE ; Start 08/27/20 at 18:59; Stop 08/27/20 at 18:52; Status DC Ondansetron HCl 4 mg STK-MED ONCE .ROUTE ; Start 08/27/20 at 18:59; Stop 08/27/20 at 18:53; Status DC Sodium Chloride 1,000 ml @ ud STK-MED ONCE .ROUTE ; Start 08/27/20 at 18:59; Stop 08/27/20 at 18:53; Status DC Ceftriaxone Sodium 1 gm ONCE ONCE IM Last administered on 08/27/20at 20:38; Admin Dose 1 GM; Start 08/27/20 at 20:30; Stop 08/27/20 at 20:32; Status DC Ceftriaxone Sodium 1 gm STK-MED ONCE .ROUTE ; Start 08/27/20 at 20:40; Stop 08/27/20 at 20:35; Status DC PRAVEEN SOLORZANO MD Aug 27, 2020 21:06
[2020-08-27] MEDS ORDERED: CEFDINIR300 MG PO (21:08)
[2020-08-27] MEDS ORDERED: TAMIFLU75 MG PO (21:08)
== END 2020-08-27 21:27 | disposition home or self-care (01) ==
LOC: FSED 18:37
DX: J11.1 Influenza due to unidentified influenza virus with other respiratory manifestations (principal); E86.0 Dehydration; R10.84 Generalized abdominal pain; Z20.828 Contact with and (suspected) exposure to other viral communicable diseases; F17.210 Nicotine dependence, cigarettes, uncomplicated
CPT/HCPCS: 74176; 80053; 85025; 87400; 99283; J0696; J1885; J2405; J7030; U0002

== ENCOUNTER → 2020-12-02 | Outpatient (CLI) | payer OTHER ==
[~2020-12-02] MED LIST changes: +CEFDINIR300 MG PO; +COVID-19 VACC, MRNA(MODERNA)/PF 100 MCG/0.5 ML VIAL IM ONE; +TAMIFLU75 MG PO
== END ==
LOC: VACCPMC 07:00
DX: Z23 Encounter for immunization (principal); Z20.822 Contact with and (suspected) exposure to COVID-19

== ENCOUNTER → 2021-01-03 | Outpatient (CLI) | payer OTHER | END | DRG 951 | LOC: VACCPMC 07:30 | DX: Z23 Encounter for immunization (principal); Z20.822 Contact with and (suspected) exposure to COVID-19 | CPT/HCPCS: 0012A; 91301 ==

== ENCOUNTER 2021-01-14 21:52 | Emergency (ER) | payer BC, OTHER ==
[~2021-01-14] VITALS: Ht 170.2 cm; Wt 169.2 kg
[~2021-01-14 21:52] MED LIST changes: -COVID-19 VACC, MRNA(MODERNA)/PF 100 MCG/0.5 ML VIAL IM ONE
[2021-01-14] MEDS ORDERED: CLINDAMYCIN HC150 MG PO (22:29)
[2021-01-14] MEDS ORDERED: KETOROLAC TROMETHAMINE 60 MG/2 ML VIAL ONE (22:30)
[2021-01-14] MEDS ORDERED: KETOROLAC TROMETHAMINE 60 MG/2 ML VIAL IM ONE (22:30)
[2021-01-14] MEDS ORDERED: ULTRAM 50MG50 MG PO (22:34)
== END 2021-01-14 22:50 | disposition home or self-care (01) ==
LOC: FSED 22:36
DX: L03.116 Cellulitis of left lower limb (principal); F17.210 Nicotine dependence, cigarettes, uncomplicated
CPT/HCPCS: 99282; J1885

== ENCOUNTER 2021-01-15 15:11 | Inpatient (IN) | payer OTHER ==
[~2021-01-15] VITALS: Ht 170.2 cm; Wt 169.2 kg
[~2021-01-15 15:11] MED LIST changes: +ULTRAM 50MG50 MG PO
[2021-01-15] MEDS ORDERED: SODIUM CHLORIDE 0.9% 1000ML 1,000 ML IV STA (15:24)
[2021-01-15] MEDS ORDERED: MORPHINE SULFATE INJ 10 MG/ML IV NR (15:30)
[2021-01-15] MEDS ORDERED: ONDANSETRON HCL INJ 2MG/ML 2ML 2 MG/ML VIAL IV NR (15:30)
[2021-01-15 16:00] LABS: BASOPHILS % 0.3 % (0.0-1.0); EOSINOPHILS # (AUTO) 0.4 (0.0-0.4); EOSINOPHILS % 4.1 % (0.0-6.0); HEMATOCRIT 40.5 % (34.2-44.1); HEMOGLOBIN 12.9 g/dL (12.0-16.0); LYMPHOCYTES # (AUTO) 2.4 (1.0-3.2); LYMPHOCYTES % 23.1 % (18.0-39.1); MEAN CORPUSCULAR HEMOGLOBIN 27.3 pg (28-32); MEAN CORPUSCULAR HGB CONC 31.9 g/dL (31-35); MEAN CORPUSCULAR VOLUME 85.8 fL (81-99); MONOCYTES # (AUTO) 0.5 (0.2-0.8); MONOCYTES % 4.7 % (4.4-11.3); NEUTROPHILS % 67.4 % (38.7-80.0); PLATELET COUNT 313 x10e3/uL (140-360); RED BLOOD COUNT 4.72 x10e6/uL (3.6-5.1); RED CELL DISTRIBUTION WIDTH 14.6 % (11.7-14.4)
[2021-01-15] MEDS ORDERED: MORPHINE SULFATE INJ 4 MG/ML INJ 1ML ONE (16:01)
[2021-01-15 16:19] LABS: ALANINE AMINOTRANSFERASE 17 IU/L (0-55); ALBUMIN 3.2 g/dL (3.5-5.0); ALBUMIN/GLOBULIN RATIO 0.9 (0.8-2.0); ALKALINE PHOSPHATASE 95 IU/L (40-150); ANION GAP 14.7 mmol/L (8-16); BLOOD UREA NITROGEN 15 mg/dL (7-26); BUN/CREATININE RATIO 18 (6-25); CALCIUM 8.5 mg/dL (8.4-10.2); CARBON DIOXIDE 26 mmol/L (22-29); CHLORIDE 101 mmol/L (98-107); CREATININE, SERUM 0.85 mg/dL (0.57-1.11); EST GLOMERULAR FILTRATION RATE > 60 ML/MIN (60-); GLUCOSE 162 mg/dL (74-118); POTASSIUM 3.7 mmol/L (3.5-5.1); SODIUM 138 mmol/L (136-145)
[2021-01-15] MEDS ORDERED: CLINDAMYCIN PHOS 900MG/ 50ML 50 ML IV NR (16:30)
[2021-01-15] MEDS ORDERED: MORPHINE SULFATE INJ 4 MG/ML INJ 1ML IV STA (17:33)
[2021-01-15] MEDS ORDERED: ONDANSETRON HCL INJ 2MG/ML 2ML 2 MG/ML VIAL IV STA (17:33)
[2021-01-15] MEDS ORDERED: IOPAMIDOL 370 MG/ML 200 ML INFUS..BTL INJ ONE (17:53)
[2021-01-15] MEDS ORDERED: SODIUM CHLORIDE 0.9% 50ML 50 ML ONE (17:53)
[2021-01-15] MEDS ORDERED: ONDANSETRON HCL INJ 2MG/ML 2ML 2 MG/ML VIAL ONE (18:29)
[2021-01-15] MEDS ORDERED: PROMETHAZINE HCL (IM) 25 MG/ML VIAL IM PRN (20:15)
[2021-01-15] MEDS ORDERED: CLINDAMYCIN PHOS 900MG/ 50ML 50 ML IV ONE (20:42)
[2021-01-15] MEDS ORDERED: PROMETHAZINE 25MG/ NS 50ML (IV) IV ONE (21:00)
[2021-01-15 21:14] VITALS: BP 108/63
[2021-01-15 21:30] VITALS: BP 108/63
[2021-01-16] VITALS (8 sets, daily range): BP systolic 99–121; BP diastolic 51–79
[2021-01-16] MEDS: ONDANSETRON HCL INJ 2MG/ML 2ML 2 MG/ML VIAL IV PRN ×4 (03:22→23:25)
[2021-01-16] MEDS: MORPHINE SULFATE INJ 4 MG/ML INJ 1ML IV PRN ×4 (03:22→23:25)
[2021-01-16] MEDS: CLINDAMYCIN PHOS 900MG/ 50ML 50 ML IV SCH ×4 (06:00→22:00)
[2021-01-16] MEDS ORDERED: SODIUM CHLORIDE 0.9% 250ML 250 ML ONE (07:10)
[2021-01-16 07:28] LABS: BASOPHILS % 0.1 % (0.0-1.0); EOSINOPHILS # (AUTO) 0.3 (0.0-0.4); EOSINOPHILS % 3.1 % (0.0-6.0); HEMATOCRIT 37.4 % (34.2-44.1); HEMOGLOBIN 11.7 g/dL (12.0-16.0); LYMPHOCYTES # (AUTO) 2.2 (1.0-3.2); LYMPHOCYTES % 26.2 % (18.0-39.1); MEAN CORPUSCULAR HEMOGLOBIN 27.2 pg (28-32); MEAN CORPUSCULAR HGB CONC 31.3 g/dL (31-35); MONOCYTES # (AUTO) 0.4 (0.2-0.8); MONOCYTES % 4.9 % (4.4-11.3); NEUTROPHILS # (AUTO) 5.6 (2.1-6.9); NEUTROPHILS % 65.2 % (38.7-80.0); PLATELET COUNT 264 x10e3/uL (140-360)
[2021-01-16 07:49] LABS: ALANINE AMINOTRANSFERASE 15 IU/L (0-55); ALBUMIN 2.7 g/dL (3.5-5.0); ALBUMIN/GLOBULIN RATIO 0.8 (0.8-2.0); ALKALINE PHOSPHATASE 80 IU/L (40-150); ANION GAP 12.7 mmol/L (8-16); BLOOD UREA NITROGEN 14 mg/dL (7-26); BUN/CREATININE RATIO 19 (6-25); CALCIUM 7.8 mg/dL (8.4-10.2); CARBON DIOXIDE 26 mmol/L (22-29); CHLORIDE 103 mmol/L (98-107); CREATININE, SERUM 0.72 mg/dL (0.57-1.11); EST GLOMERULAR FILTRATION RATE > 60 ML/MIN (60-); GLUCOSE 94 mg/dL (74-118); POTASSIUM 3.7 mmol/L (3.5-5.1); SODIUM 138 mmol/L (136-145)
[2021-01-16] MEDS: GABAPENTIN 300 MG CAP PO SCH ×3 (08:00→20:25)
[2021-01-16] MEDS: FUROSEMIDE INJ 10 MG/ML 4 ML VIAL IV SCH ×2 (08:00→20:25)
[2021-01-16] MEDS: HYDROCODONE/APAP 10MG-325MG TAB PO PRN ×2 (09:45→18:03)
[2021-01-16] MEDS: DOCUSATE SODIUM 100 MG CAP PO PRN ×2 (09:45→18:03)
[2021-01-16] MEDS ORDERED: NEURONTIN300 MG PO (19:23)
[2021-01-16] MEDS ORDERED: CEPHALEXIN500 MG PO (19:25)
[2021-01-16] MEDS ORDERED: LASIX40 MG PO (19:25)
[2021-01-16] MEDS ORDERED: KETOROLAC TROME10 MG PO (19:29)
[2021-01-16] MEDS ORDERED: TYLENOL # 31 EA PO (19:30)
[2021-01-16] MEDS ORDERED: BACTRIM DS TAB1 EACH PO (19:31)
[2021-01-17] VITALS (9 sets, daily range): BP systolic 115–140; BP diastolic 57–91
[2021-01-17] MEDS: HYDROCODONE/APAP 10MG-325MG TAB PO PRN ×3 (04:30→13:45)
[2021-01-17] MEDS: CLINDAMYCIN PHOS 900MG/ 50ML 50 ML IV SCH ×4 (05:17→21:22)
[2021-01-17] MEDS: FUROSEMIDE INJ 10 MG/ML 4 ML VIAL IV SCH ×2 (08:17→20:06)
[2021-01-17] MEDS: GABAPENTIN 300 MG CAP PO SCH ×3 (08:17→20:06)
[2021-01-17] MEDS: DOCUSATE SODIUM 100 MG CAP PO PRN (08:22)
[2021-01-17] MEDS ORDERED: ACETAMINOPHEN 325 MG TAB ONE (10:40)
[2021-01-17] MEDS: MORPHINE SULFATE INJ 4 MG/ML INJ 1ML IV PRN ×2 (10:42→20:06)
[2021-01-17] MEDS: ACETAMINOPHEN 325 MG TAB PO PRN (10:42)
[2021-01-17] MEDS: ONDANSETRON HCL INJ 2MG/ML 2ML 2 MG/ML VIAL IV PRN (20:06)
[2021-01-18] VITALS (7 sets, daily range): BP systolic 101–146; BP diastolic 62–90
[2021-01-18] MEDS: MORPHINE SULFATE INJ 4 MG/ML INJ 1ML IV PRN (04:24)
[2021-01-18] MEDS: ONDANSETRON HCL INJ 2MG/ML 2ML 2 MG/ML VIAL IV PRN (04:24)
[2021-01-18] MEDS: CLINDAMYCIN PHOS 900MG/ 50ML 50 ML IV SCH ×3 (06:15→21:29)
[2021-01-18] MEDS: HYDROCODONE/APAP 10MG-325MG TAB PO PRN ×2 (07:29→12:35)
[2021-01-18] MEDS: GABAPENTIN 300 MG CAP PO SCH ×3 (08:46→21:29)
[2021-01-18] MEDS: FUROSEMIDE INJ 10 MG/ML 4 ML VIAL IV SCH ×2 (08:46→21:29)
[2021-01-18] MEDS ORDERED: HYDROCORTISONE 2.5% CREAM 30GM TUBE TOP PRN (15:15)
[2021-01-18] MEDS: DOCUSATE SODIUM 100 MG CAP PO PRN (17:30)
[2021-01-18] MEDS: ACETAMINOPHEN 325 MG TAB PO PRN (17:34)
[2021-01-19] VITALS (8 sets, daily range): BP systolic 114–148; BP diastolic 66–119
[2021-01-19] MEDS: CLINDAMYCIN PHOS 900MG/ 50ML 50 ML IV SCH ×3 (06:38→21:49)
[2021-01-19] MEDS: ONDANSETRON HCL INJ 2MG/ML 2ML 2 MG/ML VIAL IV PRN ×3 (07:20→20:59)
[2021-01-19] MEDS: MORPHINE SULFATE INJ 4 MG/ML INJ 1ML IV PRN ×3 (07:20→20:59)
[2021-01-19] MEDS: FUROSEMIDE INJ 10 MG/ML 4 ML VIAL IV SCH ×2 (09:00→21:00)
[2021-01-19] MEDS: POLYETHYLENE GLYCOL 3350 17 GM PACK PO SCH ×2 (09:00→15:06)
[2021-01-19] MEDS: GABAPENTIN 400 MG CAP PO SCH ×3 (09:00→21:00)
[2021-01-19] MEDS: DOCUSATE SODIUM LIQD 100 MG/10 ML UDC NG SCH ×2 (09:00→15:06)
[2021-01-19] MEDS ORDERED: FENTANYL CITRATE/PF 100MCG/2 ML INJ ONE ×2 (11:21→13:26)
[2021-01-19] MEDS ORDERED: LIDOCAINE 1% W/EPINEPHRINE 20 ML VIAL ONE (11:49)
[2021-01-19] MEDS ORDERED: MIDAZOLAM HCL 2 MG/2 ML VIAL ONE (13:26)
[2021-01-19] MEDS: DOCUSATE SODIUM 100 MG CAP PO PRN (15:06)
[2021-01-19] MEDS ORDERED: PROPOFOL IV EMULSION 10 MG/ML 20 ML VIAL ONE (16:58)
[2021-01-20] VITALS (9 sets, daily range): BP systolic 110–141; BP diastolic 65–91
[2021-01-20 05:16] LABS: BASOPHILS % 0.3 % (0.0-1.0); EOSINOPHILS # (AUTO) 0.5 (0.0-0.4); EOSINOPHILS % 6.1 % (0.0-6.0); HEMATOCRIT 39.6 % (34.2-44.1); HEMOGLOBIN 12.6 g/dL (12.0-16.0); LYMPHOCYTES # (AUTO) 1.7 (1.0-3.2); LYMPHOCYTES % 22.5 % (18.0-39.1); MEAN CORPUSCULAR HEMOGLOBIN 27.4 pg (28-32); MEAN CORPUSCULAR HGB CONC 31.8 g/dL (31-35); MEAN CORPUSCULAR VOLUME 86.1 fL (81-99); MONOCYTES # (AUTO) 0.4 (0.2-0.8); MONOCYTES % 5.3 % (4.4-11.3); NEUTROPHILS # (AUTO) 4.9 (2.1-6.9); NEUTROPHILS % 65.4 % (38.7-80.0); PLATELET COUNT 236 x10e3/uL (140-360); RED CELL DISTRIBUTION WIDTH 15.1 % (11.7-14.4)
[2021-01-20 05:44] LABS: ALANINE AMINOTRANSFERASE 20 IU/L (0-55); ALBUMIN 2.8 g/dL (3.5-5.0); ALBUMIN/GLOBULIN RATIO 0.8 (0.8-2.0); ALKALINE PHOSPHATASE 86 IU/L (40-150); ANION GAP 14.3 mmol/L (8-16); BLOOD UREA NITROGEN 14 mg/dL (7-26); BUN/CREATININE RATIO 18 (6-25); CALCIUM 8.9 mg/dL (8.4-10.2); CARBON DIOXIDE 25 mmol/L (22-29); CHLORIDE 101 mmol/L (98-107); CREATININE, SERUM 0.77 mg/dL (0.57-1.11); EST GLOMERULAR FILTRATION RATE > 60 ML/MIN (60-); GLUCOSE 194 mg/dL (74-118); MAGNESIUM 1.9 MG/DL (1.3-2.1); POTASSIUM 4.3 mmol/L (3.5-5.1); SODIUM 136 mmol/L (136-145)
[2021-01-20] MEDS: HYDROCODONE/APAP 10MG-325MG TAB PO PRN (06:10)
[2021-01-20] MEDS: CLINDAMYCIN PHOS 900MG/ 50ML 50 ML IV SCH ×3 (06:35→22:00)
[2021-01-20] MEDS: DOCUSATE SODIUM LIQD 100 MG/10 ML UDC NG SCH ×2 (09:00→16:38)
[2021-01-20] MEDS: FUROSEMIDE INJ 10 MG/ML 4 ML VIAL IV SCH ×2 (09:00→20:40)
[2021-01-20] MEDS: POLYETHYLENE GLYCOL 3350 17 GM PACK PO SCH ×2 (09:00→16:38)
[2021-01-20] MEDS: GABAPENTIN 400 MG CAP PO SCH ×3 (09:00→20:40)
[2021-01-20] MEDS: MORPHINE SULFATE INJ 4 MG/ML INJ 1ML IV PRN ×2 (13:34→20:40)
[2021-01-20] MEDS: ONDANSETRON HCL INJ 2MG/ML 2ML 2 MG/ML VIAL IV PRN ×2 (13:34→20:40)
[2021-01-21 04:00] VITALS: BP 121/84
[2021-01-21] MEDS: ONDANSETRON HCL INJ 2MG/ML 2ML 2 MG/ML VIAL IV PRN (04:50)
[2021-01-21] MEDS: MORPHINE SULFATE INJ 4 MG/ML INJ 1ML IV PRN ×3 (04:50→18:30)
[2021-01-21] MEDS: CLINDAMYCIN PHOS 900MG/ 50ML 50 ML IV SCH (06:07)
[2021-01-21 08:09] VITALS: BP 121/84
[2021-01-21] MEDS: GABAPENTIN 400 MG CAP PO SCH ×2 (08:41→15:58)
[2021-01-21] MEDS: DOCUSATE SODIUM LIQD 100 MG/10 ML UDC NG SCH ×2 (08:41→17:11)
[2021-01-21] MEDS: FUROSEMIDE INJ 10 MG/ML 4 ML VIAL IV SCH (08:41)
[2021-01-21] MEDS: POLYETHYLENE GLYCOL 3350 17 GM PACK PO SCH ×2 (08:41→17:11)
[2021-01-21 09:02] VITALS: BP 126/92
[2021-01-21] MEDS ORDERED: LINEZOLID 600 MG TAB PO SCH (13:00)
[2021-01-21] MEDS: HYDROCODONE/APAP 10MG-325MG TAB PO PRN (13:36)
[2021-01-21 16:40] VITALS: BP 132/72
[2021-01-21] MEDS ORDERED: NEOMYCIN/POLYMYXIN/BACITRACIN 15 GM TUBE TOP SCH (18:00)
[2021-01-21] MEDS ORDERED: ZYVOX600 MG PO ×3 (19:40→19:41)
== END 2021-01-21 20:30 | disposition home or self-care (01) | DRG 603 ==
LOC: ER 15:46 → ERHOLD 17:34 → MED/SURG2 20:04
PROVIDERS: ADMIT Internal Medicine; ATTEND Internal Medicine
PROC: 0HDNXZZ Extraction of Left Foot Skin, External Approach (ICD-10-PCS; principal; 2021-01-19 10:34)
DX: L03.115 Cellulitis of right lower limb (principal); Z68.43 Body mass index [BMI] 50.0-59.9, adult; E66.01 Morbid (severe) obesity due to excess calories; I89.0 Lymphedema, not elsewhere classified; L03.116 Cellulitis of left lower limb; Z20.822 Contact with and (suspected) exposure to COVID-19; G62.9 Polyneuropathy, unspecified; Z88.2 Allergy status to sulfonamides; R73.9 Hyperglycemia, unspecified
CPT/HCPCS: 36415; 80053; 83605; 83735; 85025; 85651; 87040; 87071; 87075; 87186; 87205; 93306; 96361; 99251; 99284; J1940; J2270; J2405; J2550; J3010; J7030; J7050; Q9967; U0002

== ENCOUNTER 2021-06-06 19:19 | Emergency (ER) | payer OTHER ==
[~2021-06-06] VITALS: Ht 170.2 cm; Wt 169.2 kg
[~2021-06-06 19:19] MED LIST changes: +BACTRIM DS TAB1 EACH PO; +CEPHALEXIN500 MG PO; +KETOROLAC TROME10 MG PO; +LASIX40 MG PO; +NEURONTIN300 MG PO; +TYLENOL # 31 EA PO; +ZYVOX600 MG PO
[2021-06-06] MEDS ORDERED: ALBUTEROL/IPRATROPIUM 3 ML NEB NEB ONE (20:00)
[2021-06-06] MEDS ORDERED: PREDNISONE 20 MG TAB PO ONE (20:00)
[2021-06-06] MEDS ORDERED: CEFTRIAXONE 1 GM VIAL IM ONE (20:00)
[2021-06-06] MEDS ORDERED: PREDNISONE 20 MG TAB ONE (20:07)
[2021-06-06] MEDS ORDERED: CEFTRIAXONE 1 GM VIAL ONE (20:07)
[2021-06-06] MEDS ORDERED: ALBUTEROL/IPRATROPIUM 3 ML NEB ONE (20:07)
[2021-06-06] MEDS ORDERED: LIDOCAINE HCL 1% LOCAL INJ 20 ML VIAL ONE (20:08)
[2021-06-06] MEDS ORDERED: VENTOLIN HFA18 GM INH (20:12)
[2021-06-06] MEDS ORDERED: CEFDINIR300 MG PO (20:14)
[2021-06-06] MEDS ORDERED: AZITHROMYCIN250 MG PO (20:20)
[2021-06-06] MEDS ORDERED: PREDNISONE20 MG PO (20:28)
[2021-06-06] MEDS ORDERED: GUAIFEN-CODEINE5 ML PO (20:44)
== END 2021-06-06 21:35 | disposition home or self-care (01) ==
LOC: FSED 19:51
DX: R06.02 Shortness of breath (principal); R05 Cough; J20.9 Acute bronchitis, unspecified; H66.92 Otitis media, unspecified, left ear; R73.9 Hyperglycemia, unspecified; F17.210 Nicotine dependence, cigarettes, uncomplicated
CPT/HCPCS: 36415; 71046; 82948; 99283; J0696; J2001; J7512

== ENCOUNTER 2021-07-13 07:22 | Emergency (ER) | payer OTHER ==
[~2021-07-13 07:22] MED LIST changes: +AZITHROMYCIN250 MG PO; +GUAIFEN-CODEINE5 ML PO; +PREDNISONE20 MG PO; +VENTOLIN HFA18 GM INH
[2021-07-13] MEDS ORDERED: LASIX40 MG PO (07:54)
[2021-07-13] MEDS ORDERED: ACETAMINOPHEN-1 EAC4 PO (07:54)
[2021-07-13] MEDS ORDERED: KETOROLAC TROME10 MG PO (07:54)
[2021-07-13] MEDS ORDERED: ULTRAM 50MG50 MG PO (07:54)
[2021-07-13] MEDS ORDERED: FUROSEMIDE 40 MG TAB PO ONE (08:00)
[2021-07-13] MEDS ORDERED: KETOROLAC TROMETHAMINE 60 MG/2 ML VIAL IM ONE (08:00)
[2021-07-13] MEDS ORDERED: CEFTRIAXONE 1 GM VIAL IM ONE (08:00)
[2021-07-13] MEDS ORDERED: KETOROLAC TROMETHAMINE 60 MG/2 ML VIAL ONE (08:13)
[2021-07-13] MEDS ORDERED: FUROSEMIDE 40 MG TAB ONE (08:13)
[2021-07-13] MEDS ORDERED: CEFTRIAXONE 1 GM VIAL ONE (08:13)
[2021-07-13 08:20] VITALS: BP 143/97
== END 2021-07-13 08:22 | disposition home or self-care (01) ==
LOC: FSED 07:45
DX: L03.116 Cellulitis of left lower limb (principal); M54.30 Sciatica, unspecified side; F17.210 Nicotine dependence, cigarettes, uncomplicated
CPT/HCPCS: 99283; J0696; J1885

== ENCOUNTER → 2021-09-23 | Outpatient (CLI) | payer OTHER ==
[~2021-09-23] MED LIST changes: +ACETAMINOPHEN-1 EAC4 PO; +COVID-19 VACC, MRNA(MODERNA)/PF 100 MCG/0.5 ML VIAL IM ONE
== END | disposition home or self-care (01) ==
LOC: VACCPMC 09:00
DX: Z23 Encounter for immunization (principal); Z20.822 Contact with and (suspected) exposure to COVID-19
CPT/HCPCS: 91301

== ENCOUNTER → 2022-08-28 | Outpatient (CLI) | payer BC ==
[~2022-08-28] MED LIST changes: -COVID-19 VACC, MRNA(MODERNA)/PF 100 MCG/0.5 ML VIAL IM ONE
== END ==
LOC: MAMMO 14:27
PROVIDERS: ATTEND Internal Medicine
DX: Z12.31 Encounter for screening mammogram for malignant neoplasm of breast (principal)

== ENCOUNTER 2022-10-01 16:47 | Emergency (ER) | payer BC, OTHER ==
[~2022-10-01] VITALS: Ht 170.2 cm; Wt 176.9 kg
[2022-10-01] MEDS ORDERED: NAPROSYN500 MG PO (17:34)
[2022-10-01] MEDS ORDERED: CYCLOBENZAPRINE10 MG PO (17:35)
== END 2022-10-01 18:05 | disposition home or self-care (01) ==
LOC: FSED 16:53
DX: S16.1XXA Strain of muscle, fascia and tendon at neck level, initial encounter (principal); E11.9 Type 2 diabetes mellitus without complications; V43.52XA Car driver injured in collision with other type car in traffic accident, initial encounter; Y92.488 Other paved roadways as the place of occurrence of the external cause; Z88.1 Allergy status to other antibiotic agents; Z88.2 Allergy status to sulfonamides
CPT/HCPCS: 99282

== ENCOUNTER → 2025-07-31 | Outpatient (REF) | payer BC ==
[~2025-07-31] MED LIST changes: +CYCLOBENZAPRINE10 MG PO; +NAPROSYN500 MG PO
== END ==
LOC: MAMMO 08:11 → MERGE 08:30
PROVIDERS: ATTEND Internal Medicine
DX: Z12.31 Encounter for screening mammogram for malignant neoplasm of breast (principal)
CPT/HCPCS: 77067